=== PATIENT | female | born 2000 | race Caucasian/White ===

== ENCOUNTER 2019-04-22 13:27 | Inpatient (IN) | payer BC ==
[2019-04-22] MEDS ORDERED: SODIUM CHLORIDE 1,000 ML IV STA ×2 (13:58→16:24)
[2019-04-22] MEDS ORDERED: ONDANSETRON 4 MG/2 ML VIAL IVPUSH ONE (13:58)
[2019-04-22] MEDS ORDERED: morphine CARPU-JECT 4 MG/1 ML DISP.SYRIN IVPUSH ONE ×2 (13:58→16:24)
[2019-04-22] MEDS ORDERED: morphine SULFATE 4 MG/ML VIAL ONE ×2 (14:16→16:28)
[2019-04-22] MEDS ORDERED: ONDANSETRON 4 MG/2 ML VIAL ONE (14:16)
--- NOTE | 2019-04-22 14:35 | PDOC ---
History of Present Illness - General Chief Complaint: Pain Stated Complaint: LEFT LOWER QUADRANT PAIN Time Seen by Provider: 04/22/19 13:33 History Source: Patient Exam Limitations: No Limitations - History of Present Illness Initial Comments: 18 yo F s/p recent salpingectomy secondary to lg R fallopian tube mass presents with severe abd pain. She states she had surgery in [place] (she is there for school) on April 08, woke up with severe pain, which has been persistent since the surgery. She followed up twice in [place], was treated with neurontin and local lidocaine injections at the surgical sites (laparoscopic surgery), both R and L. The pain has persisted. Her mom picked her up and drove her home, took her to see Dr. Gaxiola this morning. Patient had an exam and an ultrasound, neither of which elucidated the etiology of the pain. She was sent to the ED for further evaluation. Past History - Past Medical History Allergies/Adverse Reactions: Allergies Allergy/AdvReac Type Severity Reaction Status Date / Time No Known Allergies Allergy Verified 10/02/13 10:56 Home Medications: Ambulatory Orders Gabapentin 300 mg PO TID 04/22/19 Norethindrone-E.estradiol-Iron [Lo Loestrin Fe 1-10 Tablet] 1 tab PO DAILY 04/22 COPD: No Thyroid Disease: Yes (DANA) Other medical history: CELIAC - Immunization History Td Vaccination: Yes Immunization Up to Date: Yes - Psycho Social/Smoking Cessation Hx Smoking Status: No Smoking History: Never smoked Number of Cigarettes Smoked Daily: 0 Information on smoking cessation initiated: No Hx Alcohol Use: No Drug/Substance Use Hx: No Review of Systems - Review of Systems Able to Perform ROS?: Yes Comments:: GENERAL/CONSTITUTIONAL: No fever or chills. No weakness. HEAD, EYES, EARS, NOSE AND THROAT: No change in vision. No ear pain or discharge. No sore throat. CARDIOVASCULAR: No chest pain or shortness of breath. RESPIRATORY: No cough, wheezing, or hemoptysis. GASTROINTESTINAL: No nausea, vomiting, diarrhea or constipation. +LLQ pain GENITOURINARY: No dysuria, frequency, or change in urination. MUSCULOSKELETAL: No joint or muscle swelling or pain. No neck or back pain. SKIN: No rash. NEUROLOGIC: No headache, vertigo, loss of consciousness, or change in strength/ sensation. ENDOCRINE: No increased thirst. No abnormal weight change. HEMATOLOGIC/LYMPHATIC: No anemia, easy bleeding, or history of blood clots. ALLERGIC/IMMUNOLOGIC: No hives or skin allergy. *Physical Exam - Vital Signs Last Vital Signs Temp Pulse Resp BP Pulse Ox 98.5 F 82 20 113/74 98 04/22/19 13:30 04/22/19 13:30 04/22/19 13:30 04/22/19 13:30 04/22/19 13:30 - Physical Exam GENERAL: Awake, alert, and fully oriented. Obese. Appears anxious, uncomfortable. HEAD: No signs of trauma EYES: PERRLA, EOMI, sclera anicteric, conjunctiva clear ENT: Auricles normal inspection, hearing grossly normal, nares patent, oropharynx clear without exudates. Moist mucosa NECK: Normal ROM, supple, no lymphadenopathy, JVD, or masses LUNGS: Breath sounds equal, clear to auscultation bilaterally. No wheezes, and no crackles HEART: Regular rate and rhythm, normal S1 and S2, no murmurs, rubs or gallops ABDOMEN: Soft, +severe LLQ tenderness with guarding, normoactive bowel sounds. No rebound. No masses EXTREMITIES: Normal range of motion, no edema. No clubbing or cyanosis. No cords, erythema, or tenderness NEUROLOGICAL: Cranial nerves II through XII grossly intact. Normal speech. + Antalgic gait. Motor and sensation intact SKIN: Warm, dry, normal turgor, no rashes. +Healing surgical sites to RLQ and LLQ, no drainage, no erythema. ED Treatment Course - LABORATORY CBC & Chemistry Diagram: 04/22/19 14:12 04/22/19 14:12 Medical Decision Making - Medical Decision Making 04/22/19 13:52 Pt with LLQ tenderness, already evaluated by receiving supervisor with ultrasound that did not reveal the etiology of the pain. No palpable hernias. Will give morphine as she is in severe pain. CT a/p to further evaluate. 04/22/19 18:11 Case d/w Dr. Valles, evaluated patient in ED for severe pain s/p laparoscopic surgery. No acute intervention at present. I will admit to hospitalist in light of pain med requirement and severe pain, will observe for any worsening symptoms. Patient endorsed to [facility] [employer]. Discharge - Discharge Information Problems reviewed: Yes Clinical Impression/Diagnosis: Intractable abdominal pain Abdominal pain Qualifiers: Abdominal location: left lower quadrant Qualified Code(s): R10.32 - Left lower quadrant pain Condition: Stable - Admission Yes - Follow up/Referral - Patient Discharge Instructions - Post Discharge Activity
[2019-04-22 14:37] LABS: BASO % 0.5 % (0-2.0); EOS % 0.5 % (0-4.5); HEMATOCRIT 38.2 % (32.4-45.2); HEMOGLOBIN 12.5 GM/dl (10.7-15.3); LYMPH % 23.9 % (8-40); MCH 27.4 pg (25.7-33.7); MCHC 32.8 g/dl (32.0-36.0); MEAN CELL VOLUME 83.5 fl (80-96); MEAN PLT VOLUME 8.8 fl (7.5-11.1); MONO % 4.2 % (3.8-10.2); NEUT % 70.9 % (42.8-82.8); PLATELET COUNT 350 K/MM3 (134-434); RBC 4.58 M/mm3 (3.60-5.2); RDW 14.4 % (11.6-15.6); WHITE BLOOD COUNT 10.9 K/mm3 (4.0-10.8)
[2019-04-22 14:41] LABS: ALBUMIN 3.5 g/dl (3.4-5.0); BILIRUBIN,TOTAL 0.3 mg/dl (0.2-1); CREATININE 0.7 mg/dl (0.55-1.3); POTASSIUM 4.4 mmol/L (3.5-5.1); TOT PROT 6.8 g/dl (6.4-8.2)
[2019-04-22] MEDS ORDERED: morphine SULFATE 4 MG/ML VIAL IVPUSH PRN (18:26)
[2019-04-22 20:13] VITALS: BMI 48.2
[2019-04-22] MEDS: GABAPENTIN 300 MG CAPSULE PO SCH (21:36)
[2019-04-22] MEDS ORDERED: ACETAMINOPHEN 325 MG TABLET (FP) PO PRN (21:46)
--- NOTE | 2019-04-22 21:46 | HP ---
CHIEF COMPLAINT: left lower abdominal pain PCP:Dr. Gaxiola HISTORY OF PRESENT ILLNESS: 18 year old obese female who is s/p recent salpingectomy secondary to large right fallopian tube mass who presents with severe left lower abdominal pain. She had surgery in [place] (she is there for school) on March, she woke up with severe abdominal pain, which has been persistent since the surgery. She followed up twice in [place] and was treated with neurontin and local lidocaine injections at the surgical sites (laparoscopic surgery), both R and L. The pain however has persisted. Her mom picked her up and drove her home, took her to see Dr. Gaxiola this morning. Patient had an exam and an ultrasound, which did not give an explanation of the pain. She was sent to the ED for further evaluation. ER course was notable for: (1)CT scan with no acute findings, Seen by Surgery- Dr. Valles , no acute intervention recommended Recent Travel: yes PAST MEDICAL HISTORY large right fallopian tube mass ] PAST SURGICAL HISTORY: salpingectomy 04/08/2019 secondary to large right fallopian tube mass Social History: Smoking:no Alcohol:no Drugs: no Allergies No Known Allergies Allergy (Verified 10/02/13 10:56) HOME MEDICATIONS: Home Medications Medication Instructions Recorded Gabapentin 300 mg PO TID 04/22/19 Norethindrone-E.estradiol-Iron [Lo 1 tab PO DAILY 04/22/19 Loestrin Fe 1-10 Tablet] REVIEW OF SYSTEMS CONSTITUTIONAL: Absent: fever, chills, diaphoresis, generalized weakness, malaise, loss of appetite, weight change HEENT: Absent: rhinorrhea, nasal congestion, throat pain, throat swelling, difficulty swallowing, mouth swelling, ear pain, eye pain, visual changes CARDIOVASCULAR: Absent: chest pain, syncope, palpitations, irregular heart rate, lightheadedness , peripheral edema RESPIRATORY: Absent: cough, shortness of breath, dyspnea with exertion, orthopnea, wheezing, stridor, hemoptysis GASTROINTESTINAL: Absent: left lower abdominal pain, abdominal distension, nausea, vomiting, diarrhea, constipation, melena, hematochezia GENITOURINARY: Absent: dysuria, frequency, urgency, hesitancy, hematuria, flank pain, genital pain MUSCULOSKELETAL: Absent: myalgia, arthralgia, joint swelling, back pain, neck pain SKIN: Absent: rash, itching, pallor HEMATOLOGIC/IMMUNOLOGIC: Absent: easy bleeding, easy bruising, lymphadenopathy, frequent infections ENDOCRINE: Absent: unexplained weight gain, unexplained weight loss, heat intolerance, cold intolerance NEUROLOGIC: Absent: headache, focal weakness or paresthesias, dizziness, unsteady gait, seizure, mental status changes, bladder or bowel incontinence PSYCHIATRIC: Absent: anxiety, depression, suicidal or homicidal ideation, hallucinations. PHYSICAL EXAMINATION Vital Signs - 24 hr 04/22/19 04/22/19 13:30 15:28 Temperature 98.5 F 98.3 F Pulse Rate 82 Pulse Rate [ 75 Left Radial] Respiratory 20 16 Rate Blood Pressure 113/74 Blood Pressure 119/48 L [Right Arm] O2 Sat by Pulse 98 100 Oximetry (%) GENERAL: awake, alert, and fully oriented no acute distress HEAD: normal EYES: pupils equal, round and reactive to light, extraocular movements intact EARS, NOSE, THROAT: ears normal, nares patent NECK: normal range of motion, supple without lymphadenopathy, JVD, or masses. LUNGS: breath sounds clear to auscultation bilaterally no wheezes and no crackles no accessory muscle use HEART: regular rate and rhythm normal S1 and S2 ABDOMEN: tender to LLQ not distended no acute abdomen MUSCULOSKELETAL: normal range of motion UPPER EXTREMITIES: 2+ pulses warm well-perfused no cyanosis LOWER EXTREMITIES: 2+ pulses warm well-perfused no pitting edema NEUROLOGICAL: normal speech PSYCHIATRIC: cooperative anxious SKIN: warm dry normal turgor no rashes or lesions noted normal capillary refill Laboratory Results - last 24 hr 04/22/19 04/22/19 04/22/19 14:12 14:12 14:12 WBC 10.9 H RBC 4.58 Hgb 12.5 Hct 38.2 MCV 83.5 MCH 27.4 MCHC 32.8 RDW 14.4 Plt Count 350 MPV 8.8 Absolute Neuts (auto) 7.6 Neutrophils % 70.9 Lymphocytes % 23.9 Monocytes % 4.2 Eosinophils % 0.5 Basophils % 0.5 Sodium 136 Potassium 4.4 Chloride 106 Carbon Dioxide 25 Anion Gap 5 L BUN 19.0 H Creatinine 0.7 Est GFR (CKD-EPI)AfAm 144.56 Est GFR (CKD-EPI)NonAf 124.72 Random Glucose 84 Calcium 9.0 Total Bilirubin 0.3 AST 12 L ALT 19 Alkaline Phosphatase 74 Total Protein 6.8 Albumin 3.5 Lipase 112 Serum , Qual Urine Color Urine Appearance Urine pH Urine Protein Urine Glucose (UA) Urine Ketones Urine Blood Urine Nitrite Urine Bilirubin Urine Urobilinogen Ur Leukocyte Esterase Blood Type Antibody Screen 04/22/19 04/22/19 04/22/19 14:12 14:12 14:15 WBC RBC Hgb Hct MCV MCH MCHC RDW Plt Count MPV Absolute Neuts (auto) Neutrophils % Lymphocytes % Monocytes % Eosinophils % Basophils % Sodium Potassium Chloride Carbon Dioxide Anion Gap BUN Creatinine Est GFR (CKD-EPI)AfAm Est GFR (CKD-EPI)NonAf Random Glucose Calcium Total Bilirubin AST ALT Alkaline Phosphatase Total Protein Albumin Lipase Serum , Qual Negative Urine Color Urine Appearance Urine pH Urine Protein Urine Glucose (UA) Urine Ketones Urine Blood Urine Nitrite Urine Bilirubin Urine Urobilinogen Ur Leukocyte Esterase Blood Type O POSITIVE O POSITIVE Antibody Screen Negative 04/22/19 16:20 WBC RBC Hgb Hct MCV MCH MCHC RDW Plt Count MPV Absolute Neuts (auto) Neutrophils % Lymphocytes % Monocytes % Eosinophils % Basophils % Sodium Potassium Chloride Carbon Dioxide Anion Gap BUN Creatinine Est GFR (CKD-EPI)AfAm Est GFR (CKD-EPI)NonAf Random Glucose Calcium Total Bilirubin AST ALT Alkaline Phosphatase Total Protein Albumin Lipase Serum , Qual Urine Color Yellow Urine Appearance Clear Urine pH 6.0 Urine Protein Negative Urine Glucose (UA) Negative Urine Ketones Negative Urine Blood Negative Urine Nitrite Negative Urine Bilirubin Negative Urine Urobilinogen 0.2 Ur Leukocyte Esterase Negative Blood Type Antibody Screen ASSESSMENT/PLAN: Mrs. Sal is a 18 year old morbidly obese female who is s/p recent salpingectomy secondary to large right fallopian tube mass who presents with severe abdominal pain. Post surgery she continued to have persistent abdominal pain. She followed up twice in [place] and was treated with neurontin and local lidocaine injections at the surgical sites (laparoscopic surgery), both R and L. She was evaluated by Surgery in the ER and no acute interventions recommended. She is being admitted for further monitoring and pain management. #1 Persistent Abdominal Pain Workup -WBC 10,900, currently afebrile, LFT's, renal function and lipase normal. UA normal, serum qualitative negative CT scan with no acute findings, Evaluated by Surgery- Dr. Valles , no acute interventions recommended She is being admitted for further evaluation of persistent abdominal pain and pain control. Contine with IV morphine for severe pain Continue with tylenol for mild to moderate pain. Repeat CBC in am Visit type - Emergency Visit Emergency Visit: Yes ED Registration Date: 04/22/19 Care time: The patient presented to the Emergency Department on the above date and was hospitalized for further evaluation of their emergent condition. - New Patient This patient is new to me today: Yes Date on this admission: 04/22/19 - Critical Care Critical Care patient: No
[2019-04-22] MEDS ORDERED: diphenhydrAMINE HCL 25 MG CAPSULE (FP) PO ONE (21:47)
--- NOTE | 2019-04-22 22:06 | CONSULT ---
- Consultation REQUESTING PROVIDER: Janak WEBBER CONSULT REQUEST: We have been asked to surgically evaluate this patient for ( specify). 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 Maryann Gaxiola today which was unremarkable and an unremarkable pelvic US; she describes LLQ point tenderness impeding her ability to walk and do her ADL. She has no other c/o; she required morphine in the ED; a w/u was done w/ aCT scan of the a/p. All her [place] medical records were reviewed. PMHx: Hashimotos thyroiditis /? anxiety PSHx: as above Home Medications Medication Instructions Recorded Gabapentin 300 mg PO TID 04/22/19 Norethindrone-E.estradiol-Iron [Lo 1 tab PO DAILY 04/22/19 Loestrin Fe 1-10 Tablet] Allergies Allergy/AdvReac Type Severity Reaction Status Date / Time No Known Allergies Allergy Verified 10/02/13 10:56 REVIEW OF SYSTEMS: CONSTITUTIONAL: Absent: fever, chills, diaphoresis, generalized weakness, malaise, loss of appetite, weight change CARDIOVASCULAR: Absent: chest pain, syncope, palpitations, irregular heart rate, lightheadedness , peripheral edema RESPIRATORY: Absent: cough, shortness of breath, dyspnea with exertion, wheezing, stridor, hemoptysis GASTROINTESTINAL: Present: abdominal pain, Absent: abdominal distension, nausea, vomiting, diarrhea, constipation, melena, hematochezia GENITOURINARY: Absent: dysuria, frequency, urgency, hesitancy, hematuria, flank pain, genital pain MUSCULOSKELETAL: Absent: myalgia, arthralgia, joint swelling, back pain, neck pain SKIN: Absent: rash, itching, pallor HEMATOLOGIC/IMMUNOLOGIC: Absent: easy bleeding, easy bruising, lymphadenopathy NEUROLOGIC: Absent: headache, focal weakness, paresthesias, dizziness, unsteady gait, seizure, mental status changes, bladder or bowel incontinence PSYCHIATRIC: Absent: anxiety, depression, suicidal or homicidal ideation, hallucinations. PHYSICAL EXAM: GENERAL: Awake, alert, and fully oriented, in no acute distress. HEAD: Normal with no signs of trauma. EYES: PERRL, sclera anicteric, conjunctiva clear. NECK: Normal ROM, supple without lymphadenopathy, JVD, or masses. ABDOMEN: Soft, minimally tender LLQ at port site with healed port site, not distended, normoactive bowel sounds, superficial guarding, no rebound, no masses. No organomegaly. Remainder of all other port sites healed; no hernias. MUSCULOSKELETAL: Normal ROM at all joints. No bony deformities or tenderness. No CVA tenderness. UPPER EXTREMITIES: 2+ pulses, warm, well-perfused. No cyanosis. Cap refill <2 seconds. No peripheral edema. LOWER EXTREMITIES: 2+ pulses, warm, well-perfused. No calf tenderness. No peripheral edema. NEUROLOGICAL: Normal speech, gait not observed. PSYCH: Cooperative. Good eye contact. Appropriate mood and affect. SKIN: Warm, dry, normal turgor, no rashes or lesions noted. Vital Signs Temperature 98.3 F 04/22/19 15:28 Pulse Rate 75 04/22/19 15:28 Respiratory Rate 16 04/22/19 15:28 Blood Pressure 119/48 L 04/22/19 15:28 O2 Sat by Pulse Oximetry (%) 100 04/22/19 15:28 Lab Results WBC 10.9 K/mm3 (4.0-10.8) H 04/22/19 14:12 RBC 4.58 M/mm3 (3.60-5.2) 04/22/19 14:12 Hgb 12.5 GM/dl (10.7-15.3) 04/22/19 14:12 Hct 38.2 % (32.4-45.2) 04/22/19 14:12 MCV 83.5 fl (80-96) 04/22/19 14:12 MCHC 32.8 g/dl (32.0-36.0) 04/22/19 14:12 RDW 14.4 % (11.6-15.6) 04/22/19 14:12 Plt Count 350 K/MM3 (134-434) 04/22/19 14:12 Sodium 136 mmol/L (136-145) 04/22/19 14:12 Potassium 4.4 mmol/L (3.5-5.1) 04/22/19 14:12 Chloride 106 mmol/L (98-107) 04/22/19 14:12 Carbon Dioxide 25 mmol/L (21-32) 04/22/19 14:12 Anion Gap 5 MMOL/L (8-16) L 04/22/19 14:12 BUN 19.0 mg/dl (7-18) H 04/22/19 14:12 Creatinine 0.7 mg/dl (0.55-1.3) 04/22/19 14:12 Random Glucose 84 mg/dl (74-106) 04/22/19 14:12 Calcium 9.0 mg/dl (8.5-10) 04/22/19 14:12 Blood Type O POSITIVE 04/22/19 14:15 Antibody Screen Negative 04/22/19 14:12 CT scan a/p reviewed- post op changes only; o/w negative. IMP: No evidenece of an acute surgical abdomen; pain is post surgical and superficial in nature w/possible fat necosis PLAN: Advise admission for pain control w/preferably non opiods; reconsult prn. Jacob Valles MD FACS
[2019-04-22] MEDS ORDERED: ONDANSETRON 4 MG/2 ML VIAL IVPUSH PRN (22:17)
[2019-04-22] MEDS ORDERED: ACETAMINOPHEN 1000 MG/100 ML VIAL (NON FORMULARY) IVPB ONE (23:20)
[2019-04-23] MEDS: GABAPENTIN 300 MG CAPSULE PO SCH ×2 (06:10→13:12)
[2019-04-23] MEDS ORDERED: ACETAMINOPHEN 1000 MG/100 ML VIAL (NON FORMULARY) IVPB ONE ×2 (06:15→13:04)
[2019-04-23 08:51] LABS: HEMATOCRIT 32.1 % (32.4-45.2); HEMOGLOBIN 10.7 GM/dl (10.7-15.3); MCH 28.3 pg (25.7-33.7); MCHC 33.4 g/dl (32.0-36.0); MEAN CELL VOLUME 84.7 fl (80-96); MEAN PLT VOLUME 8.8 fl (7.5-11.1); PLATELET COUNT 254 K/MM3 (134-434); RBC 3.79 M/mm3 (3.60-5.2); RDW 14.7 % (11.6-15.6); WHITE BLOOD COUNT 9.1 K/mm3 (4.0-10.8)
[2019-04-23 08:58] LABS: CALCIUM 8.4 mg/dl (8.5-10); CREATININE 0.7 mg/dl (0.55-1.3); POTASSIUM 4.6 mmol/L (3.5-5.1)
[2019-04-23] MEDS ORDERED: LIDOCAINE 5% TOPICAL PATCH TP ONE (13:05)
--- NOTE | 2019-04-23 13:26 | DS ---
Physical Exam: SUBJECTIVE: Patient seen and examined at bedside with mother present. Father later arrived. Still having abdominal pain. she denies nausea vomiting fever chills chest pain or SOB. AVSS OBJECTIVE: Vital Signs Period Temp Pulse Resp BP Sys/Fonseca Pulse Ox Last 24 Hr 98.0 F-98.5 F 67-82 16-20 101-119/41-74 98-100 PHYSICAL EXAM GENERAL: The patient is awake, alert, and fully oriented. HEAD: Normal with no signs of trauma. EYES: extraocular movements intact, sclera anicteric, conjunctiva clear. LUNGS: Breath sounds equal, clear to auscultation bilaterally, no wheezes, no crackles, no accessory muscle use. HEART: Regular rate and rhythm, S1, S2 without murmur, rub or gallop. ABDOMEN: Soft, obese, tenderness to palpation over LLQ trochar incision site, nondistended, normoactive bowel sounds, no guarding, no rebound. of note when patient was distracted the exam did not seem as severe. Patient is eating a donut from [employer] and drinking and iced coffee. Tenderness seems to be very superficial. EXTREMITIES: warm, well-perfused, no edema. NEUROLOGICAL: Cranial nerves II through XII grossly intact. Normal speech, gait not observed. PSYCH: tearful, anxious SKIN: Warm, dry LABS Laboratory Results - last 24 hr 04/22/19 04/22/19 04/22/19 14:12 14:12 14:12 WBC 10.9 H RBC 4.58 Hgb 12.5 Hct 38.2 MCV 83.5 MCH 27.4 MCHC 32.8 RDW 14.4 Plt Count 350 MPV 8.8 Absolute Neuts (auto) 7.6 Neutrophils % 70.9 Lymphocytes % 23.9 Monocytes % 4.2 Eosinophils % 0.5 Basophils % 0.5 Sodium 136 Potassium 4.4 Chloride 106 Carbon Dioxide 25 Anion Gap 5 L BUN 19.0 H Creatinine 0.7 Est GFR (CKD-EPI)AfAm 144.56 Est GFR (CKD-EPI)NonAf 124.72 Random Glucose 84 Calcium 9.0 Total Bilirubin 0.3 AST 12 L ALT 19 Alkaline Phosphatase 74 Total Protein 6.8 Albumin 3.5 Lipase 112 Serum , Qual Urine Color Urine Appearance Urine pH Urine Protein Urine Glucose (UA) Urine Ketones Urine Blood Urine Nitrite Urine Bilirubin Urine Urobilinogen Ur Leukocyte Esterase Blood Type Antibody Screen 04/22/19 04/22/19 04/22/19 14:12 14:12 14:15 WBC RBC Hgb Hct MCV MCH MCHC RDW Plt Count MPV Absolute Neuts (auto) Neutrophils % Lymphocytes % Monocytes % Eosinophils % Basophils % Sodium Potassium Chloride Carbon Dioxide Anion Gap BUN Creatinine Est GFR (CKD-EPI)AfAm Est GFR (CKD-EPI)NonAf Random Glucose Calcium Total Bilirubin AST ALT Alkaline Phosphatase Total Protein Albumin Lipase Serum , Qual Negative Urine Color Urine Appearance Urine pH Urine Protein Urine Glucose (UA) Urine Ketones Urine Blood Urine Nitrite Urine Bilirubin Urine Urobilinogen Ur Leukocyte Esterase Blood Type O POSITIVE O POSITIVE Antibody Screen Negative 04/22/19 04/23/19 04/23/19 16:20 08:12 08:12 WBC 9.1 RBC 3.79 Hgb 10.7 Hct 32.1 L D MCV 84.7 MCH 28.3 MCHC 33.4 RDW 14.7 Plt Count 254 MPV 8.8 Absolute Neuts (auto) Neutrophils % Lymphocytes % Monocytes % Eosinophils % Basophils % Sodium 136 Potassium 4.6 Chloride 106 Carbon Dioxide 25 Anion Gap 5 L BUN 16.0 Creatinine 0.7 Est GFR (CKD-EPI)AfAm 144.56 Est GFR (CKD-EPI)NonAf 124.72 Random Glucose 99 Calcium 8.4 L Total Bilirubin AST ALT Alkaline Phosphatase Total Protein Albumin Lipase Serum , Qual Urine Color Yellow Urine Appearance Clear Urine pH 6.0 Urine Protein Negative Urine Glucose (UA) Negative Urine Ketones Negative Urine Blood Negative Urine Nitrite Negative Urine Bilirubin Negative Urine Urobilinogen 0.2 Ur Leukocyte Esterase Negative Blood Type Antibody Screen HOSPITAL COURSE: Date of Admission:04/22/19 Date of Discharge: 04/23/19 18 year old obese female who is s/p recent ovarian cystectomy secondary to large right fallopian tube mass who presents with severe left lower abdominal pain. She had surgery in [place] (she is there for school) on April 08, 2019, she woke up with severe abdominal pain, which has been persistent since the surgery. She followed up twice in [place] and was treated with neurontin and local lidocaine injections at the surgical sites (laparoscopic surgery), both R and L. The pain however has persisted. Her mom picked her up and drove her home , took her to see Dr. Gaxiola this morning. Patient had an exam and an ultrasound, which did not give an explanation of the pain. She was sent to the ED for further evaluation where a CTAP was done which shows some inflammation or fat stranding at the area of the LLQ trochar insertion site. Gave mother multiple physician recommendations for primary care. Patient states lidocaine infiltration done by surgeon in the past helped her for 10 hours per patient. Minutes to complete discharge: 40 Discharge Summary Problems reviewed: Yes Reason For Visit: INTRACTABLE ABDOMINAL PAIN Current Active Problems Abdominal pain (Acute) Intractable abdominal pain (Acute) Condition: Stable - Instructions Diet, Activity, Other Instructions: If you have worsening of your symptoms or nausea vomiting fever chills chest pain or shortness of breath diarrhea of any other concerning symptoms please go to the nearest emergency room. Exercise as tolerated. Consider seeing a psychiatrist for anxiety. Referrals: Jacob Valles MD [Staff Physician] - 1 Month (as needed ) Randolph Subramanian MD [Staff Physician] - 1 Week (call for appointment) Disposition: HOME - Home Medications Comprehensive Discharge Medication List: Ambulatory Orders Gabapentin 300 mg PO TID 04/22/19 Norethindrone-E.estradiol-Iron [Lo Loestrin Fe 1-10 Tablet] 1 tab PO DAILY 04/22 Acetaminophen [Tylenol .Regular Strength -] 650 mg PO Q6H PRN tablet 04/23/19 oxyCODONE HCL [Roxicodone -] 5 mg PO Q6H PRN 3 Days #12 tablet MDD 4 tabs Prescription Drug Monitoring Program (I-STOP) results: I-STOP reviewed and no issues identified (reference number [id number]) This patient is new to me today: Yes Date on this admission: 04/23/19 Emergency Visit: Yes ED Registration Date: 04/22/19 Care time: The patient presented to the Emergency Department on the above date and was hospitalized for further evaluation of their emergent condition. Critical Care patient: No - Discharge Referral Referred to [facility] Med [facility] Yes Physician Referral: Randolph Subramanian MD (Int Med)
[2019-04-23 14:54] VITALS: BP 107/47; PULSE 66; TEMP 98.2
[2019-04-23] MEDS ORDERED: LIDOCAINE PATCH REMOVAL MC ONE (15:15)
[2019-04-23] MEDS ORDERED: LIDOCAINE PATCH REMOVAL MC SCH (22:00)
== END 2019-04-23 15:34 | disposition home or self-care (01) | DRG 392 ==
LOC: FER 13:27 → FM/S 18:08
PROVIDERS: ADMIT Internal Medicine; ATTEND Internal Medicine
DX: R10.32 Left lower quadrant pain (principal); Z68.42 Body mass index [BMI] 45.0-49.9, adult; E66.01 Morbid (severe) obesity due to excess calories
CPT/HCPCS: 36415; 74177-TC; 80048; 80053; 81003; 83690; 84703; 85025; 85027; 86850; 86900; 86901; 99285-25; J0131; J7030

== ENCOUNTER 2020-08-30 19:55 | Emergency (ER) | payer BC ==
[2020-08-30 20:04] VITALS: BP 124/81; PULSE 104; TEMP 99.3; BMI 48.4
[2020-08-30] MEDS ORDERED: morphine CARPU-JECT 4 MG/1 ML DISP.SYRIN IVPUSH ONE (20:28)
[2020-08-30] MEDS ORDERED: SODIUM CHLORIDE 1,000 ML ONE (20:28)
[2020-08-30] MEDS ORDERED: KETOROLAC TROMETHAMINE 30 MG/1 ML VIAL IVPUSH ONE (20:28)
[2020-08-30] MEDS ORDERED: KETOROLAC TROMETHAMINE 30 MG/1 ML VIAL ONE (20:31)
[2020-08-30] MEDS ORDERED: morphine SULFATE 4 MG/ML VIAL ONE (20:31)
[2020-08-30] MEDS ORDERED: ONDANSETRON 4 MG/2 ML VIAL IVPB ONE (20:46)
[2020-08-30] MEDS ORDERED: ONDANSETRON 4 MG/2 ML VIAL ONE (20:49)
[2020-08-30 21:07] LABS: BASO % 1.5 % (0-2.0); EOS % 0.9 % (0-4.5); HEMATOCRIT 41.7 % (32.4-45.2); HEMOGLOBIN 14.3 GM/dl (10.7-15.3); MCHC 34.2 g/dl (32.0-36.0); MEAN CELL VOLUME 84.6 fl (80-96); MEAN PLT VOLUME 9.5 fl (7.5-11.1); MONO % 6.2 % (3.8-10.2); NEUT % 72.4 % (42.8-82.8); PLATELET COUNT 353 10^3/uL (134-434); RBC 4.93 M/mm3 (3.60-5.2); RDW 14.8 % (11.6-15.6); WHITE BLOOD COUNT 8.6 K/mm3 (4.0-10.8)
[2020-08-30 21:08] LABS: EPITHELIAL CELLS MODERATE /hpf
[2020-08-30 21:09] LABS: HCG,QUALITATIVE URINE Negative
[2020-08-30 21:16] LABS: ALBUMIN 3.7 g/dl (3.4-5.0); BILIRUBIN,TOTAL 4.4 mg/dl (0.2-1); CALCIUM 9.1 mg/dl (8.5-10); CREATININE 0.7 mg/dl (0.55-1.3); TOT PROT 7.2 g/dl (6.4-8.2)
[2020-09-06 10:08] LABS: HEP B CORE AB, TOT Negative (Negative)
== END 2020-08-30 22:57 | disposition home or self-care (01) ==
LOC: FER 19:55
PROC: 3E0333Z Introduction of Anti-inflammatory into Peripheral Vein, Percutaneous Approach (ICD-10-PCS; principal; 2020-08-30)
PROC: 3E033GC Introduction of Other Therapeutic Substance into Peripheral Vein, Percutaneous Approach (ICD-10-PCS; 2020-08-30)
PROC: 3E0337Z Introduction of Electrolytic and Water Balance Substance into Peripheral Vein, Percutaneous Approach (ICD-10-PCS; 2020-08-30)
DX: R10.31 Right lower quadrant pain (principal)
CPT/HCPCS: 36415; 74177-TC; 76705-TC; 80053; 81003; 81015; 83605; 83690; 84703; 85025; 86704; 86706; 86707; 86708; 86709; 87340; 99285-25; C9803; Q9967; U0003; U0005

== ENCOUNTER 2021-02-20 17:00 | Emergency (ER) | payer BC ==
[2021-02-20] MEDS ORDERED: ACETAMINOPHEN 325 MG TABLET (FP) PO ONE (17:15)
[2021-02-20] MEDS ORDERED: DEXAMETHASONE 4 MG TABLET (FP) PO ONE (17:16)
[2021-02-20 17:17] VITALS: BMI 44.6
[2021-02-20] MEDS ORDERED: ACETAMINOPHEN 1000 MG/100 ML VIAL IVPB ONE (17:27)
[2021-02-20] MEDS ORDERED: DEXAMETHASONE SOD PHOSPHATE 10 MG/1 ML VIAL IVPUSH ONE (17:28)
[2021-02-20] MEDS ORDERED: ACETAMINOPHEN INJECTION 100 ML IVPB ONE (17:30)
[2021-02-20] MEDS ORDERED: DEXAMETHASONE SOD PHOSPHATE 10 MG/1 ML VIAL ONE (17:30)
[2021-02-20] MEDS ORDERED: SODIUM CHLORIDE 0.9% 500 ML INFUS.BAG IV ONE (17:49)
[2021-02-20 18:21] LABS: ALBUMIN 3.6 g/dl (3.4-5.0); BILIRUBIN,TOTAL 1.3 mg/dl (0.2-1); CREATININE 0.8 mg/dl (0.55-1.3); TOT PROT 6.8 g/dl (6.4-8.2)
[2021-02-20 19:40] LABS: BASO % 0.3 % (0-2.0); EOS % 0.3 % (0-4.5); HEMATOCRIT 40.1 % (32.4-45.2); HEMOGLOBIN 13.3 GM/dL (10.7-15.3); LYMPH % 4.7 % (8-40); MCH 27.6 pg (25.7-33.7); MCHC 33.2 g/dl (32.0-36.0); MEAN CELL VOLUME 83.1 fl (80-96); MEAN PLT VOLUME 9.1 fl (7.5-11.1); MONO % 3.2 % (3.8-10.2); NEUT % 91.5 % (42.8-82.8); PLATELET COUNT 274 10^3/uL (134-434); RBC 4.82 M/mm3 (3.60-5.2); RDW 14.5 % (11.6-15.6); WHITE BLOOD COUNT 10.8 K/mm3 (4.0-10.0)
[2021-02-20 20:36] LABS: ANISOCYTOSIS 0; HELMET CELLS 0; HOWELL-JOLLY BODIES 0; MACROCYTOSIS 0; OVALOCYTE 0; PLATELET ESTIMATE NORMAL; ROULEAU 0; SICKELED CELLS 0; TARGET CELLS 0; TEAR DROP CELLS 0; TOXIC GRANULATION 0
[2021-02-20 20:56] VITALS: BP 115/71; PULSE 81; TEMP 99
== END 2021-02-20 20:59 | disposition home or self-care (01) ==
LOC: FER 17:00
PROC: 3E0333Z Introduction of Anti-inflammatory into Peripheral Vein, Percutaneous Approach (ICD-10-PCS; principal; 2021-02-20)
PROC: 3E033GC Introduction of Other Therapeutic Substance into Peripheral Vein, Percutaneous Approach (ICD-10-PCS; 2021-02-20)
DX: R11.10 Vomiting, unspecified (principal)
CPT/HCPCS: 36415; 80053; 85025; 87804; 99284-25; C9803; J0131; J1100; U0003; U0005

== ENCOUNTER 2021-12-03 07:04 | Day surgery (SDC) | payer BC ==
[2021-11-29 14:26] VITALS: BMI 44.6
[2021-12-03 07:57] VITALS: RESP 18
[2021-12-03] MEDS ORDERED: KETAMINE HCL 500 MG/10 ML VIAL ONE (09:22)
[2021-12-03] MEDS ORDERED: PROMETHAZINE HCL 25 MG/1 ML VIAL ONE (10:15)
[2021-12-03] MEDS ORDERED: ACETAMINOPHEN INJECTION 100 ML IVPB ONE (10:16)
[2021-12-03] MEDS ORDERED: ACETAMINOPHEN 1000 MG/100 ML BAG IVPB ONE (10:27)
[2021-12-03] MEDS ORDERED: PROMETHAZINE HCL 25 MG/1 ML VIAL IVPUSH PRN (10:28)
[2021-12-03 10:45] VITALS: TEMP 97.4
[2021-12-03 12:02] VITALS: BP 110/70; PULSE 66
== END 2021-12-03 12:03 | disposition home or self-care (01) ==
LOC: FECT 07:04
PROVIDERS: ATTEND Psychiatry & Neurology Psychiatry
PROC: GZB4ZZZ Other Electroconvulsive Therapy (ICD-10-PCS; principal; 2021-12-03 09:34)
DX: F32.A Depression, unspecified (principal)
CPT/HCPCS: 81025; 90870; 94760; C9803-CS; U0003; U0005

== ENCOUNTER 2021-12-05 07:08 | Day surgery (SDC) | payer BC ==
[2021-12-03 09:20] VITALS: BMI 44.6
[2021-12-05] MEDS ORDERED: ACETAMINOPHEN INJECTION 100 ML IVPB ONE (10:03)
[2021-12-05] MEDS ORDERED: ACETAMINOPHEN 1000 MG/100 ML BAG IVPB ONE ×2 (10:04→10:37)
[2021-12-05 10:35] VITALS: RESP 16
[2021-12-05 11:57] VITALS: BP 89/44; PULSE 78; TEMP 97
== END 2021-12-05 11:45 | disposition home or self-care (01) ==
LOC: FECT 07:08
PROVIDERS: ATTEND Psychiatry & Neurology Psychiatry
PROC: GZB4ZZZ Other Electroconvulsive Therapy (ICD-10-PCS; principal; 2021-12-05 09:47)
DX: F32.A Depression, unspecified (principal)
CPT/HCPCS: 90870; 94760

== ENCOUNTER → 2021-12-06 | Day surgery (SDC) | payer BC ==
[2021-12-03 09:30] VITALS: BMI 44.6
[~2021-12-06] MED LIST: ACETAMINOPHEN 1000 MG/100 ML BAG IVPB ONE; ACETAMINOPHEN INJECTION 100 ML IVPB ONE; ACETAMINOPHEN/CAFFEINE/BUTALBITAL 1 TAB ONE; PROMETHAZINE HCL 25 MG/1 ML VIAL IVPUSH PRN; PROMETHAZINE HCL 25 MG/1 ML VIAL ONE
[2021-12-06 10:20] VITALS: RESP 16
[2021-12-06 10:52] VITALS: TEMP 98
[2021-12-06 11:30] VITALS: BP 126/73; PULSE 57
== END | disposition home or self-care (01) ==
LOC: FECT 08:21
PROVIDERS: ATTEND Psychiatry & Neurology Psychiatry
PROC: GZB4ZZZ Other Electroconvulsive Therapy (ICD-10-PCS; principal; 2021-12-06 09:42)
DX: F32.A Depression, unspecified (principal)
CPT/HCPCS: 90870; 94760; C9803-CS; U0003; U0005

== ENCOUNTER 2021-12-10 06:22 | Day surgery (SDC) | payer BC ==
[2021-12-03 09:38] VITALS: BMI 44.6
[2021-12-10] MEDS ORDERED: KETAMINE HCL 500 MG/10 ML VIAL ONE (08:01)
[2021-12-10] MEDS ORDERED: ACETAMINOPHEN/CAFFEINE/BUTALBITAL 1 TAB PO ONE (08:14)
[2021-12-10 09:10] VITALS: RESP 18
[2021-12-10 09:16] VITALS: TEMP 97.8
[2021-12-10 10:08] VITALS: BP 106/62; PULSE 72
== END 2021-12-10 10:00 | disposition home or self-care (01) ==
LOC: FECT 06:22
PROVIDERS: ATTEND Psychiatry & Neurology Psychiatry
PROC: GZB4ZZZ Other Electroconvulsive Therapy (ICD-10-PCS; principal; 2021-12-10 08:23)
DX: F32.A Depression, unspecified (principal)
CPT/HCPCS: 81025; 90870; 94760; C9803-CS; U0003; U0005

== ENCOUNTER 2021-12-12 07:07 | Day surgery (SDC) | payer BC ==
[2021-12-10 08:22] VITALS: BMI 44.6
[2021-12-12 10:30] VITALS: RESP 18
[2021-12-12] MEDS ORDERED: ACETAMINOPHEN/CAFFEINE/BUTALBITAL 1 TAB PO ONE (10:39)
[2021-12-12 11:06] VITALS: TEMP 98
[2021-12-12 12:25] VITALS: BP 117/78; PULSE 84
== END 2021-12-12 11:45 | disposition home or self-care (01) ==
LOC: FECT 07:07
PROVIDERS: ATTEND Psychiatry & Neurology Psychiatry
PROC: GZB4ZZZ Other Electroconvulsive Therapy (ICD-10-PCS; principal; 2021-12-12 09:50)
DX: F32.A Depression, unspecified (principal)
CPT/HCPCS: 90870; 94760

== ENCOUNTER 2021-12-13 08:54 | Day surgery (SDC) | payer BC ==
[2021-12-10 08:17] VITALS: BMI 44.6
[2021-12-13 11:39] VITALS: RESP 16
[2021-12-13 11:47] VITALS: PULSE 67; TEMP 97.5
[2021-12-13 11:59] VITALS: BP 108/66
== END 2021-12-13 12:33 | disposition home or self-care (01) ==
LOC: FECT 08:54
PROVIDERS: ATTEND Psychiatry & Neurology Psychiatry
PROC: GZB4ZZZ Other Electroconvulsive Therapy (ICD-10-PCS; principal; 2021-12-13 10:52)
DX: F32.A Depression, unspecified (principal)
CPT/HCPCS: 90870; 94760; C9803-CS; U0003; U0005

== ENCOUNTER 2021-12-17 06:21 | Day surgery (SDC) | payer BC ==
[2021-12-10 14:51] VITALS: BMI 44.6
[2021-12-17] MEDS ORDERED: KETAMINE HCL 500 MG/10 ML VIAL ONE (08:01)
[2021-12-17 08:58] VITALS: RESP 18
[2021-12-17 09:11] VITALS: PULSE 80; TEMP 98.2
[2021-12-17 09:27] VITALS: BP 120/80
== END 2021-12-17 10:02 | disposition home or self-care (01) ==
LOC: FECT 06:21
PROVIDERS: ATTEND Psychiatry & Neurology Psychiatry
PROC: GZB4ZZZ Other Electroconvulsive Therapy (ICD-10-PCS; principal; 2021-12-17 08:15)
DX: F32.A Depression, unspecified (principal)
CPT/HCPCS: 81025; 90870; 94760; C9803-CS; U0003; U0005

== ENCOUNTER 2021-12-19 07:04 | Day surgery (SDC) | payer OTHER, BC ==
[2021-12-13 14:40] VITALS: BMI 44.6
[2021-12-19] MEDS ORDERED: KETAMINE HCL 500 MG/10 ML VIAL ONE (09:02)
[2021-12-19] MEDS ORDERED: ACETAMINOPHEN/CAFFEINE/BUTALBITAL 1 TAB ONE (10:09)
[2021-12-19 11:39] VITALS: TEMP 98
[2021-12-19 11:50] VITALS: RESP 17
[2021-12-19 12:02] VITALS: BP 120/68; PULSE 72
== END 2021-12-19 11:05 | disposition home or self-care (01) ==
LOC: FECT 07:04
PROVIDERS: ATTEND Psychiatry & Neurology Psychiatry
PROC: GZB4ZZZ Other Electroconvulsive Therapy (ICD-10-PCS; principal; 2021-12-19 09:15)
DX: F32.A Depression, unspecified (principal)
CPT/HCPCS: 81025; 90870; 94760

== ENCOUNTER 2021-12-20 06:24 | Day surgery (SDC) | payer OTHER, BC ==
[2021-12-13 14:56] VITALS: BMI 44.6
[2021-12-20] MEDS ORDERED: KETAMINE HCL 500 MG/10 ML VIAL ONE (08:07)
[2021-12-20] MEDS ORDERED: ACETAMINOPHEN/CAFFEINE/BUTALBITAL 1 TAB PO ONE (08:39)
[2021-12-20 09:10] VITALS: TEMP 97.9
[2021-12-20 10:01] VITALS: BP 110/56; PULSE 71; RESP 18
== END 2021-12-20 09:55 | disposition home or self-care (01) ==
LOC: FECT 06:24
PROVIDERS: ATTEND Psychiatry & Neurology Psychiatry
PROC: GZB4ZZZ Other Electroconvulsive Therapy (ICD-10-PCS; principal; 2021-12-20 08:22)
DX: F33.2 Major depressive disorder, recurrent severe without psychotic features (principal)
CPT/HCPCS: 90870; 94760; C9803-CS; U0003; U0005

== ENCOUNTER 2021-12-24 08:18 | Day surgery (SDC) | payer BC, OTHER ==
[2021-12-18 17:38] VITALS: BMI 44.6
[2021-12-24] MEDS ORDERED: KETAMINE HCL 500 MG/10 ML VIAL ONE (09:54)
[2021-12-24] MEDS ORDERED: PROMETHAZINE HCL 25 MG/1 ML VIAL IVPUSH PRN (10:29)
[2021-12-24] MEDS ORDERED: ACETAMINOPHEN 500 MG TABLET (FP) PO PRN (10:29)
[2021-12-24] MEDS ORDERED: LACTATED RINGERS SOLUTION 1,000 ML IV SCH (10:30)
[2021-12-24 11:09] VITALS: TEMP 97.7
[2021-12-24 15:19] VITALS: BP 121/64; PULSE 71; RESP 18
== END 2021-12-24 12:20 | disposition home or self-care (01) ==
LOC: FECT 08:18
PROVIDERS: ATTEND Psychiatry & Neurology Psychiatry
PROC: GZB4ZZZ Other Electroconvulsive Therapy (ICD-10-PCS; principal; 2021-12-24 10:08)
DX: F32.A Depression, unspecified (principal)
CPT/HCPCS: 81025; 90870; 94760; C9803-CS; U0003; U0005

== ENCOUNTER 2021-12-26 09:13 | Day surgery (SDC) | payer BC, OTHER ==
[2021-12-18 08:55] VITALS: BMI 44.6
[2021-12-26 11:59] VITALS: PULSE 72; RESP 18; TEMP 97.4
[2021-12-26 12:54] VITALS: BP 122/74
== END 2021-12-26 13:05 | disposition home or self-care (01) ==
LOC: FECT 09:13
PROVIDERS: ATTEND Psychiatry & Neurology Psychiatry
PROC: GZB4ZZZ Other Electroconvulsive Therapy (ICD-10-PCS; principal; 2021-12-26 11:06)
DX: F32.A Depression, unspecified (principal)
CPT/HCPCS: 90870; 94760

== ENCOUNTER 2021-12-27 08:23 | Day surgery (SDC) | payer BC, OTHER ==
[2021-12-18 09:01] VITALS: BMI 44.6
[2021-12-27 13:07] VITALS: BP 118/70; PULSE 77; RESP 20; TEMP 98
== END 2021-12-27 13:08 | disposition home or self-care (01) ==
LOC: FECT 08:23
PROVIDERS: ATTEND Psychiatry & Neurology Psychiatry
PROC: GZB4ZZZ Other Electroconvulsive Therapy (ICD-10-PCS; principal; 2021-12-27 10:37)
DX: F32.A Depression, unspecified (principal)
CPT/HCPCS: 90870; 94760; C9803-CS; U0003; U0005

== ENCOUNTER 2021-12-31 08:54 | Day surgery (SDC) | payer BC, OTHER ==
[2021-12-24 16:37] VITALS: BMI 44.6
[2021-12-31] MEDS ORDERED: ONDANSETRON 4 MG/2 ML VIAL IVPUSH PRN (09:22)
[2021-12-31] MEDS ORDERED: LACTATED RINGERS SOLUTION 1,000 ML IV SCH (09:30)
[2021-12-31] MEDS ORDERED: ACETAMINOPHEN/CAFFEINE/BUTALBITAL 1 TAB PO ONE (09:45)
[2021-12-31] MEDS ORDERED: ACETAMINOPHEN/CAFFEINE/BUTALBITAL 1 TAB ONE (10:38)
[2021-12-31 11:35] VITALS: RESP 18; TEMP 97.9
[2021-12-31 11:40] VITALS: BP 132/76; PULSE 84
== END 2021-12-31 11:43 | disposition home or self-care (01) ==
LOC: FECT 08:54
PROVIDERS: ATTEND Psychiatry & Neurology Psychiatry
PROC: GZB4ZZZ Other Electroconvulsive Therapy (ICD-10-PCS; principal; 2021-12-31 10:06)
DX: F32.A Depression, unspecified (principal)
CPT/HCPCS: 81025; 90870; 94760; C9803-CS; U0003; U0005

== ENCOUNTER 2022-01-02 09:41 | Day surgery (SDC) | payer BC, OTHER ==
[2021-12-30 17:55] VITALS: BMI 44.6
[2022-01-02 10:49] VITALS: RESP 18
[2022-01-02] MEDS ORDERED: KETAMINE HCL 500 MG/10 ML VIAL ONE (11:31)
[2022-01-02 12:46] VITALS: TEMP 98
[2022-01-02 14:08] VITALS: BP 141/81; PULSE 79
== END 2022-01-02 13:05 | disposition home or self-care (01) ==
LOC: FECT 09:41
PROVIDERS: ATTEND Psychiatry & Neurology Psychiatry
PROC: GZB4ZZZ Other Electroconvulsive Therapy (ICD-10-PCS; principal; 2022-01-02 11:42)
DX: F32.A Depression, unspecified (principal)
CPT/HCPCS: 90870; 94760

== ENCOUNTER 2022-01-09 09:28 | Day surgery (SDC) | payer OTHER, BC ==
[2022-01-06 08:20] VITALS: BMI 44.6
[2022-01-09 12:40] VITALS: PULSE 70; RESP 16; TEMP 97.9
[2022-01-09 13:34] VITALS: BP 105/50
== END 2022-01-09 13:30 | disposition home or self-care (01) ==
LOC: FECT 09:28
PROVIDERS: ATTEND Psychiatry & Neurology Psychiatry
PROC: GZB4ZZZ Other Electroconvulsive Therapy (ICD-10-PCS; principal; 2022-01-09 11:39)
DX: Z53.8 Procedure and treatment not carried out for other reasons (principal)
CPT/HCPCS: 81025; 90870; 94760

== ENCOUNTER 2022-01-10 07:27 | Day surgery (SDC) | payer OTHER, BC ==
[2022-01-06 08:37] VITALS: BMI 44.6
[2022-01-10] MEDS ORDERED: KETAMINE HCL 500 MG/10 ML VIAL ONE (09:04)
[2022-01-10 10:31] VITALS: RESP 16; TEMP 98.8
[2022-01-10 10:46] VITALS: BP 108/64; PULSE 74
[2022-01-10] MEDS ORDERED: PROMETHAZINE HCL 25 MG/1 ML VIAL IVPUSH PRN (10:50)
[2022-01-10] MEDS ORDERED: ACETAMINOPHEN 500 MG TABLET (FP) PO PRN (10:50)
[2022-01-10] MEDS ORDERED: ONDANSETRON 4 MG/2 ML VIAL IVPUSH PRN (10:50)
[2022-01-10] MEDS ORDERED: LACTATED RINGERS SOLUTION 1,000 ML IV SCH (11:00)
== END 2022-01-10 10:50 | disposition home or self-care (01) ==
LOC: FECT 07:27
PROVIDERS: ATTEND Psychiatry & Neurology Psychiatry
PROC: GZB4ZZZ Other Electroconvulsive Therapy (ICD-10-PCS; principal; 2022-01-10 09:14)
DX: F32.A Depression, unspecified (principal)
CPT/HCPCS: 90870; 94760; C9803-CS; U0003; U0005

== ENCOUNTER 2022-01-14 09:12 | Day surgery (SDC) | payer OTHER, BC ==
[2022-01-13 16:56] VITALS: BMI 44.6
[2022-01-14] MEDS ORDERED: KETAMINE HCL 500 MG/10 ML VIAL ONE (10:42)
[2022-01-14] MEDS ORDERED: ACETAMINOPHEN 1000 MG/100 ML BAG IVPB ONE (11:49)
[2022-01-14 12:38] VITALS: RESP 18; TEMP 97.9
[2022-01-14 13:10] VITALS: BP 116/62; PULSE 76
== END 2022-01-14 13:11 | disposition home or self-care (01) ==
LOC: FECT 09:12
PROVIDERS: ATTEND Psychiatry & Neurology Psychiatry
PROC: GZB4ZZZ Other Electroconvulsive Therapy (ICD-10-PCS; principal; 2022-01-14 11:00)
DX: F32.A Depression, unspecified (principal)
CPT/HCPCS: 84703; 90870; 94760; C9803-CS; U0003; U0005

== ENCOUNTER 2022-01-16 09:12 | Day surgery (SDC) | payer OTHER, BC ==
[2022-01-16 09:31] VITALS: BMI 44.8
[2022-01-16] MEDS ORDERED: KETAMINE HCL 500 MG/10 ML VIAL ONE (10:18)
[2022-01-16 11:15] VITALS: RESP 16; TEMP 98.2
[2022-01-16 11:38] VITALS: BP 105/65; PULSE 68
== END 2022-01-16 12:10 | disposition home or self-care (01) ==
LOC: FECT 09:12
PROVIDERS: ATTEND Psychiatry & Neurology Psychiatry
PROC: GZB4ZZZ Other Electroconvulsive Therapy (ICD-10-PCS; principal; 2022-01-16 10:30)
DX: F33.2 Major depressive disorder, recurrent severe without psychotic features (principal)
CPT/HCPCS: 90870; 94760

== ENCOUNTER 2022-01-17 08:29 | Day surgery (SDC) | payer OTHER, BC ==
[2022-01-17 08:46] VITALS: BMI 44.9
[2022-01-17] MEDS ORDERED: KETAMINE HCL 500 MG/10 ML VIAL ONE (10:08)
[2022-01-17 11:18] VITALS: RESP 18; TEMP 98
[2022-01-17 13:56] VITALS: BP 110/72; PULSE 72
== END 2022-01-17 12:00 | disposition home or self-care (01) ==
LOC: FECT 08:29
PROVIDERS: ATTEND Psychiatry & Neurology Psychiatry
PROC: GZB4ZZZ Other Electroconvulsive Therapy (ICD-10-PCS; principal; 2022-01-17 10:16)
DX: F33.2 Major depressive disorder, recurrent severe without psychotic features (principal)
CPT/HCPCS: 90870; 94760; C9803-CS; U0003; U0005

== ENCOUNTER 2022-01-21 08:10 | Day surgery (SDC) | payer OTHER, BC ==
[2022-01-17 14:59] VITALS: BMI 44.9
[2022-01-21 12:12] VITALS: RESP 16
[2022-01-21 12:29] VITALS: TEMP 97.8
[2022-01-21 13:14] VITALS: BP 111/61; PULSE 62
== END 2022-01-21 13:49 | disposition home or self-care (01) ==
LOC: FECT 08:10
PROVIDERS: ATTEND Psychiatry & Neurology Psychiatry
PROC: GZB4ZZZ Other Electroconvulsive Therapy (ICD-10-PCS; principal; 2022-01-21 11:14)
DX: F32.A Depression, unspecified (principal)
CPT/HCPCS: 81025; 90870; 94760; C9803-CS; U0003; U0005

== ENCOUNTER 2022-01-23 09:34 | Day surgery (SDC) | payer OTHER, BC ==
[2022-01-23 10:47] VITALS: BMI 44.2
[2022-01-23] MEDS ORDERED: KETAMINE HCL 500 MG/10 ML VIAL ONE (12:07)
[2022-01-23 13:15] VITALS: RESP 16; TEMP 97.5
[2022-01-23 14:10] VITALS: BP 116/62; PULSE 72
== END 2022-01-23 14:05 | disposition home or self-care (01) ==
LOC: FECT 09:34
PROVIDERS: ATTEND Psychiatry & Neurology Psychiatry
PROC: GZB4ZZZ Other Electroconvulsive Therapy (ICD-10-PCS; principal; 2022-01-23 12:20)
DX: F32.A Depression, unspecified (principal)
CPT/HCPCS: 90870; 94760

== ENCOUNTER 2022-01-24 09:09 | Day surgery (SDC) | payer OTHER, BC ==
[2022-01-21 14:27] VITALS: BMI 44.8
[2022-01-24] MEDS ORDERED: KETAMINE HCL 500 MG/10 ML VIAL ONE (11:01)
[2022-01-24 12:25] VITALS: RESP 18; TEMP 97.4
[2022-01-24 12:41] VITALS: BP 115/64; PULSE 76
== END 2022-01-24 13:25 | disposition home or self-care (01) ==
LOC: FECT 09:09
PROVIDERS: ATTEND Psychiatry & Neurology Psychiatry
PROC: GZB4ZZZ Other Electroconvulsive Therapy (ICD-10-PCS; principal; 2022-01-24 11:09)
DX: F32.A Depression, unspecified (principal)
CPT/HCPCS: 90870; 94760; C9803-CS; U0003; U0005

== ENCOUNTER 2022-01-28 10:07 | Day surgery (SDC) | payer OTHER, BC ==
[2022-01-21 14:37] VITALS: BMI 44.8
[2022-01-28] MEDS ORDERED: KETAMINE HCL 500 MG/10 ML VIAL ONE (11:00)
[2022-01-28 12:26] VITALS: BP 126/72; PULSE 76; RESP 18; TEMP 97.9
== END 2022-01-28 14:00 | disposition home or self-care (01) ==
LOC: FECT 10:07
PROVIDERS: ATTEND Psychiatry & Neurology Psychiatry
PROC: GZB4ZZZ Other Electroconvulsive Therapy (ICD-10-PCS; principal; 2022-01-28 11:17)
DX: F32.A Depression, unspecified (principal)
CPT/HCPCS: 81025; 90870; 94760

== ENCOUNTER 2022-02-07 07:07 | Day surgery (SDC) | payer OTHER, BC ==
[2022-02-04 07:31] VITALS: BMI 44.8
[2022-02-07] MEDS ORDERED: KETAMINE HCL 500 MG/10 ML VIAL ONE (08:21)
[2022-02-07] MEDS ORDERED: PROPOFOL 20 ML ONE (08:28)
[2022-02-07] MEDS ORDERED: SUCCINYLCHOLINE CHLORIDE 200 MG/10 ML SYRINGE ONE (08:29)
[2022-02-07 08:55] VITALS: RESP 16
[2022-02-07 09:54] VITALS: PULSE 87; TEMP 97.9
[2022-02-07 10:08] VITALS: BP 100/60
[2022-02-07] MEDS ORDERED: LACTATED RINGERS SOLUTION 1,000 ML IV SCH (11:15)
== END 2022-02-07 10:05 | disposition home or self-care (01) ==
LOC: FECT 07:07
PROVIDERS: ATTEND Psychiatry & Neurology Psychiatry
PROC: GZB4ZZZ Other Electroconvulsive Therapy (ICD-10-PCS; principal; 2022-02-07 08:34)
DX: F32.A Depression, unspecified (principal)
CPT/HCPCS: 81025; 90870; 94760; C9803-CS; U0003; U0005

== ENCOUNTER 2022-02-14 08:54 | Day surgery (SDC) | payer OTHER, BC ==
[2022-02-10 17:45] VITALS: BMI 44.8
[2022-02-14] MEDS ORDERED: ONDANSETRON 4 MG/2 ML VIAL ONE (11:37)
[2022-02-14] MEDS ORDERED: DEXAMETHASONE SOD PHOSPHATE 4 MG/1 ML VIAL ONE (11:37)
[2022-02-14] MEDS ORDERED: KETOROLAC TROMETHAMINE 30 MG/1 ML VIAL ONE (11:37)
[2022-02-14] MEDS ORDERED: KETAMINE HCL 500 MG/10 ML VIAL ONE (11:37)
[2022-02-14] MEDS ORDERED: PROPOFOL 20 ML ONE (11:54)
[2022-02-14 15:57] VITALS: TEMP 97.5
[2022-02-14 16:17] VITALS: BP 126/70; PULSE 78; RESP 16
== END 2022-02-14 15:00 | disposition home or self-care (01) ==
LOC: FECT 08:54
PROVIDERS: ATTEND Psychiatry & Neurology Psychiatry
PROC: GZB4ZZZ Other Electroconvulsive Therapy (ICD-10-PCS; principal; 2022-02-14 11:59)
DX: F32.A Depression, unspecified (principal)
CPT/HCPCS: 81025; 90870; 94760; C9803-CS; U0003; U0005

== ENCOUNTER 2022-02-18 09:44 | Day surgery (SDC) | payer OTHER, BC ==
[2022-02-10 17:49] VITALS: BMI 44.6
[2022-02-18] MEDS ORDERED: KETAMINE HCL 500 MG/10 ML VIAL ONE (10:41)
[2022-02-18 12:17] VITALS: RESP 18; TEMP 97.8
[2022-02-18 12:54] VITALS: BP 118/73; PULSE 72
== END 2022-02-18 12:56 | disposition home or self-care (01) ==
LOC: FECT 09:44
PROVIDERS: ATTEND Psychiatry & Neurology Psychiatry
PROC: GZB4ZZZ Other Electroconvulsive Therapy (ICD-10-PCS; principal; 2022-02-18 11:00)
DX: F33.2 Major depressive disorder, recurrent severe without psychotic features (principal)
CPT/HCPCS: 81025; 90870; 94760; C9803-CS; U0003; U0005

== ENCOUNTER 2022-02-20 09:48 | Day surgery (SDC) | payer OTHER, BC ==
[2022-02-05 13:16] VITALS: BMI 44.8
[2022-02-20] MEDS ORDERED: KETAMINE HCL 500 MG/10 ML VIAL ONE (10:51)
[2022-02-20 12:06] VITALS: TEMP 98.7
[2022-02-20 14:12] VITALS: BP 118/71; PULSE 74; RESP 16
== END 2022-02-20 13:07 | disposition home or self-care (01) ==
LOC: FECT 09:48
PROVIDERS: ATTEND Psychiatry & Neurology Psychiatry
PROC: GZB4ZZZ Other Electroconvulsive Therapy (ICD-10-PCS; principal; 2022-02-20 11:02)
DX: F32.A Depression, unspecified (principal)
CPT/HCPCS: 81025; 90870; 94760

== ENCOUNTER 2022-02-21 12:09 | Day surgery (SDC) | payer OTHER, BC ==
[2022-02-17 08:50] VITALS: BMI 44.6
[2022-02-21] MEDS ORDERED: KETAMINE HCL 500 MG/10 ML VIAL ONE (13:26)
[2022-02-21 14:03] VITALS: RESP 16
[2022-02-21 14:30] VITALS: TEMP 98.2
[2022-02-21 14:59] VITALS: BP 111/57; PULSE 72
== END 2022-02-21 15:15 | disposition home or self-care (01) ==
LOC: FECT 12:09
PROVIDERS: ATTEND Psychiatry & Neurology Psychiatry
PROC: GZB4ZZZ Other Electroconvulsive Therapy (ICD-10-PCS; principal; 2022-02-21 13:36)
DX: F32.A Depression, unspecified (principal)
CPT/HCPCS: 90870; 94760; C9803-CS; U0003; U0005

== ENCOUNTER 2022-02-25 08:11 | Day surgery (SDC) | payer OTHER, BC ==
[2022-02-21 15:53] VITALS: BMI 44.6
[2022-02-25 08:29] VITALS: RESP 16
[2022-02-25] MEDS ORDERED: KETAMINE HCL 500 MG/10 ML VIAL ONE (09:16)
[2022-02-25 10:25] VITALS: TEMP 98.2
[2022-02-25 10:44] VITALS: BP 125/78; PULSE 75
== END 2022-02-25 11:10 | disposition home or self-care (01) ==
LOC: FECT 08:11
PROVIDERS: ATTEND Psychiatry & Neurology Psychiatry
PROC: GZB4ZZZ Other Electroconvulsive Therapy (ICD-10-PCS; principal; 2022-02-25 09:27)
DX: F32.A Depression, unspecified (principal)
CPT/HCPCS: 81025; 90870; 94760; C9803-CS; U0003; U0005

== ENCOUNTER 2022-02-27 10:00 | Day surgery (SDC) | payer OTHER, BC ==
[2022-02-24 12:18] VITALS: BMI 44.6
[2022-02-27] MEDS ORDERED: KETAMINE HCL 500 MG/10 ML VIAL ONE (10:54)
[2022-02-27] MEDS ORDERED: KETOROLAC TROMETHAMINE 30 MG/1 ML VIAL ONE (10:57)
[2022-02-27] MEDS ORDERED: ONDANSETRON 4 MG/2 ML VIAL ONE (10:57)
[2022-02-27] MEDS ORDERED: LACTATED RINGERS SOLUTION 1,000 ML IV SCH (11:30)
[2022-02-27 12:06] VITALS: RESP 16; TEMP 98.2
[2022-02-27 13:19] VITALS: BP 126/76; PULSE 84
== END 2022-02-27 13:04 | disposition home or self-care (01) ==
LOC: FECT 10:00
PROVIDERS: ATTEND Psychiatry & Neurology Psychiatry
PROC: GZB4ZZZ Other Electroconvulsive Therapy (ICD-10-PCS; principal; 2022-02-27 11:08)
DX: F32.A Depression, unspecified (principal)
CPT/HCPCS: 90870; 94760

== ENCOUNTER 2022-02-28 06:33 | Day surgery (SDC) | payer OTHER, BC ==
[2022-02-24 12:13] VITALS: BMI 44.6
[2022-02-28] MEDS ORDERED: KETAMINE HCL 500 MG/10 ML VIAL ONE (07:25)
[2022-02-28 09:46] VITALS: BP 126/55; PULSE 72; RESP 20; TEMP 97.9
== END 2022-02-28 09:46 | disposition home or self-care (01) ==
LOC: FECT 06:33
PROVIDERS: ATTEND Psychiatry & Neurology Psychiatry
PROC: GZB4ZZZ Other Electroconvulsive Therapy (ICD-10-PCS; principal; 2022-02-28 07:30)
DX: F32.A Depression, unspecified (principal)
CPT/HCPCS: 90870; 94760; C9803-CS; U0003; U0005

== ENCOUNTER 2022-03-20 08:51 | Day surgery (SDC) | payer OTHER, BC ==
[2022-03-20 09:24] VITALS: BMI 44.6
[2022-03-20] MEDS ORDERED: KETAMINE HCL 500 MG/10 ML VIAL ONE (10:35)
[2022-03-20 11:23] VITALS: TEMP 97.9
[2022-03-20 11:57] VITALS: BP 124/67; PULSE 67; RESP 18
== END 2022-03-20 12:19 | disposition home or self-care (01) ==
LOC: FECT 08:51
PROVIDERS: ATTEND Psychiatry & Neurology Psychiatry
PROC: GZB4ZZZ Other Electroconvulsive Therapy (ICD-10-PCS; principal; 2022-03-20 10:40)
DX: F32.A Depression, unspecified (principal)
CPT/HCPCS: 81025; 90870; 94760

== ENCOUNTER 2022-03-21 08:41 | Day surgery (SDC) | payer OTHER, BC ==
[2022-03-21 09:38] VITALS: BMI 44.6
[2022-03-21] MEDS ORDERED: KETAMINE HCL 500 MG/10 ML VIAL ONE (09:52)
[2022-03-21 11:01] VITALS: RESP 18; TEMP 97.4
[2022-03-21 11:57] VITALS: BP 120/74; PULSE 78
== END 2022-03-21 11:58 | disposition home or self-care (01) ==
LOC: FECT 08:41
PROVIDERS: ATTEND Psychiatry & Neurology Psychiatry
PROC: GZB4ZZZ Other Electroconvulsive Therapy (ICD-10-PCS; principal; 2022-03-21 10:02)
DX: F32.A Depression, unspecified (principal)
CPT/HCPCS: 90870; 94760

== ENCOUNTER 2022-03-25 06:32 | Day surgery (SDC) | payer OTHER, BC ==
[2022-03-20 15:25] VITALS: BMI 44.6
[2022-03-25] MEDS ORDERED: ONDANSETRON 4 MG/2 ML VIAL IVPUSH PRN (07:19)
[2022-03-25] MEDS ORDERED: PROMETHAZINE HCL 25 MG/1 ML VIAL IVPUSH PRN (07:19)
[2022-03-25] MEDS ORDERED: ACETAMINOPHEN 500 MG TABLET (FP) PO PRN (07:19)
[2022-03-25] MEDS ORDERED: LACTATED RINGERS SOLUTION 1,000 ML IV SCH (07:30)
[2022-03-25] MEDS ORDERED: KETAMINE HCL 500 MG/10 ML VIAL ONE (08:28)
[2022-03-25 09:42] VITALS: TEMP 98
[2022-03-25 09:46] VITALS: RESP 19
[2022-03-25 09:57] VITALS: BP 134/68; PULSE 76
== END 2022-03-25 10:10 | disposition home or self-care (01) ==
LOC: FECT 06:32
PROVIDERS: ATTEND Psychiatry & Neurology Psychiatry
PROC: GZB4ZZZ Other Electroconvulsive Therapy (ICD-10-PCS; principal; 2022-03-25 08:40)
DX: F32.A Depression, unspecified (principal)
CPT/HCPCS: 81025; 90870; 94760

== ENCOUNTER 2022-03-27 09:15 | Day surgery (SDC) | payer OTHER, BC ==
[2022-03-20 15:31] VITALS: BMI 44.6
[2022-03-27] MEDS ORDERED: KETAMINE HCL 500 MG/10 ML VIAL ONE (10:27)
[2022-03-27] MEDS ORDERED: PROMETHAZINE HCL 25 MG/1 ML VIAL IVPUSH PRN (11:32)
[2022-03-27] MEDS ORDERED: ACETAMINOPHEN 500 MG TABLET (FP) PO PRN (11:32)
[2022-03-27 11:34] VITALS: RESP 20; TEMP 97.8
[2022-03-27] MEDS ORDERED: LACTATED RINGERS SOLUTION 1,000 ML IV SCH (11:45)
[2022-03-27 12:02] VITALS: BP 124/72; PULSE 70
== END 2022-03-27 12:15 | disposition home or self-care (01) ==
LOC: FECT 09:15
PROVIDERS: ATTEND Psychiatry & Neurology Psychiatry
PROC: GZB4ZZZ Other Electroconvulsive Therapy (ICD-10-PCS; principal; 2022-03-27 10:37)
DX: F32.A Depression, unspecified (principal)
CPT/HCPCS: 90870; 94760

== ENCOUNTER 2022-03-28 09:05 | Day surgery (SDC) | payer OTHER, BC ==
[2022-03-20 15:39] VITALS: BMI 44.6
[2022-03-28] MEDS ORDERED: KETAMINE HCL 500 MG/10 ML VIAL ONE (10:44)
[2022-03-28 13:49] VITALS: PULSE 70; RESP 17; TEMP 97.9
[2022-03-28 14:10] VITALS: BP 100/50
== END 2022-03-28 13:00 | disposition home or self-care (01) ==
LOC: FECT 09:05
PROVIDERS: ATTEND Psychiatry & Neurology Psychiatry
PROC: GZB4ZZZ Other Electroconvulsive Therapy (ICD-10-PCS; principal; 2022-03-28 10:57)
DX: F33.2 Major depressive disorder, recurrent severe without psychotic features (principal)
CPT/HCPCS: 90870; 94760

== ENCOUNTER 2022-04-01 08:46 | Day surgery (SDC) | payer OTHER, BC ==
[2022-03-28 06:38] VITALS: BMI 44.6
[2022-04-01] MEDS ORDERED: KETAMINE HCL 500 MG/10 ML VIAL ONE (11:37)
[2022-04-01] MEDS ORDERED: SUCCINYLCHOLINE CHLORIDE 200 MG/10 ML SYRINGE ONE (11:42)
[2022-04-01] MEDS ORDERED: PROPOFOL 20 ML ONE (11:42)
[2022-04-01 13:09] VITALS: RESP 19
[2022-04-01 13:25] VITALS: BP 109/57; PULSE 82; TEMP 98
== END 2022-04-01 13:45 | disposition home or self-care (01) ==
LOC: FECT 08:46
PROVIDERS: ATTEND Psychiatry & Neurology Psychiatry
PROC: GZB4ZZZ Other Electroconvulsive Therapy (ICD-10-PCS; principal; 2022-04-01 11:47)
DX: F32.A Depression, unspecified (principal)
CPT/HCPCS: 81025; 90870; 94760

== ENCOUNTER 2022-04-03 07:56 | Day surgery (SDC) | payer OTHER, BC ==
[2022-03-28 06:41] VITALS: BMI 44.6
[2022-04-03 08:30] VITALS: RESP 18
[2022-04-03] MEDS ORDERED: KETAMINE HCL 500 MG/10 ML VIAL ONE (08:58)
[2022-04-03 10:22] VITALS: TEMP 97.1
[2022-04-03 10:44] VITALS: BP 122/74; PULSE 82
== END 2022-04-03 10:47 | disposition home or self-care (01) ==
LOC: FECT 07:56
PROVIDERS: ATTEND Psychiatry & Neurology Psychiatry
PROC: GZB4ZZZ Other Electroconvulsive Therapy (ICD-10-PCS; principal; 2022-04-03 09:28)
DX: F32.A Depression, unspecified (principal)
CPT/HCPCS: 90870; 94760

== ENCOUNTER 2022-04-08 09:04 | Day surgery (SDC) | payer OTHER, BC ==
[2022-04-03 15:18] VITALS: BMI 44.6
[2022-04-08] MEDS ORDERED: KETAMINE HCL 500 MG/10 ML VIAL ONE (10:00)
[2022-04-08 10:43] VITALS: PULSE 72
[2022-04-08 11:04] VITALS: RESP 18; TEMP 97.8
[2022-04-08 11:27] VITALS: BP 135/78
== END 2022-04-08 12:05 | disposition home or self-care (01) ==
LOC: FECT 09:04
PROVIDERS: ATTEND Psychiatry & Neurology Psychiatry
PROC: GZB4ZZZ Other Electroconvulsive Therapy (ICD-10-PCS; principal; 2022-04-08 10:13)
DX: F32.A Depression, unspecified (principal)
CPT/HCPCS: 81025; 90870; 94760

== ENCOUNTER → 2022-04-11 | Day surgery (SDC) | payer OTHER, BC ==
[2022-04-09 17:45] VITALS: BMI 44.6
[~2022-04-11] MED LIST changes: -ACETAMINOPHEN 1000 MG/100 ML BAG IVPB ONE; -ACETAMINOPHEN INJECTION 100 ML IVPB ONE; -ACETAMINOPHEN/CAFFEINE/BUTALBITAL 1 TAB ONE; +KETAMINE HCL 500 MG/10 ML VIAL ONE; -PROMETHAZINE HCL 25 MG/1 ML VIAL IVPUSH PRN; -PROMETHAZINE HCL 25 MG/1 ML VIAL ONE
[2022-04-11 08:25] VITALS: RESP 16
[2022-04-11 10:38] VITALS: TEMP 97.8
[2022-04-11 11:15] VITALS: BP 132/64; PULSE 71
== END | disposition home or self-care (01) ==
LOC: FECT 07:59
PROVIDERS: ATTEND Psychiatry & Neurology Psychiatry
PROC: GZB4ZZZ Other Electroconvulsive Therapy (ICD-10-PCS; principal; 2022-04-11 09:58)
DX: F32.A Depression, unspecified (principal)
CPT/HCPCS: 90870; 94760

== ENCOUNTER 2022-04-15 08:45 | Day surgery (SDC) | payer OTHER, BC ==
[2022-04-10 14:23] VITALS: BMI 44.6
[~2022-04-15 08:45] MED LIST changes: -KETAMINE HCL 500 MG/10 ML VIAL ONE; +LACTATED RINGERS SOLUTION 1,000 ML IV SCH; +ONDANSETRON 4 MG/2 ML VIAL IVPUSH PRN
[2022-04-15 11:28] VITALS: RESP 18; TEMP 97.8
[2022-04-15 11:32] VITALS: BP 112/70; PULSE 72
== END 2022-04-15 11:47 | disposition home or self-care (01) ==
LOC: FECT 08:45
PROVIDERS: ATTEND Psychiatry & Neurology Psychiatry
PROC: GZB4ZZZ Other Electroconvulsive Therapy (ICD-10-PCS; principal; 2022-04-15 10:17)
DX: F32.A Depression, unspecified (principal)
CPT/HCPCS: 81025; 90870; 94760

== ENCOUNTER 2022-04-18 09:41 | Day surgery (SDC) | payer OTHER, BC ==
[2022-04-18 10:20] VITALS: BMI 44.6
[2022-04-18 12:50] VITALS: RESP 18; TEMP 98.2
[2022-04-18 13:51] VITALS: BP 122/74; PULSE 72
== END 2022-04-18 13:52 | disposition home or self-care (01) ==
LOC: FECT 09:41
PROVIDERS: ATTEND Psychiatry & Neurology Psychiatry
PROC: GZB4ZZZ Other Electroconvulsive Therapy (ICD-10-PCS; principal; 2022-04-18 11:42)
DX: F32.A Depression, unspecified (principal)
CPT/HCPCS: 90870; 94760

== ENCOUNTER 2022-04-22 09:25 | Day surgery (SDC) | payer OTHER, BC ==
[2022-04-15 15:08] VITALS: BMI 44.6
[~2022-04-22 09:25] MED LIST changes: -ONDANSETRON 4 MG/2 ML VIAL IVPUSH PRN
[2022-04-22 13:24] VITALS: RESP 18
[2022-04-22 15:10] VITALS: BP 121/65; PULSE 85; TEMP 98.4
== END 2022-04-22 13:30 | disposition home or self-care (01) ==
LOC: FECT 09:25
PROVIDERS: ATTEND Psychiatry & Neurology Psychiatry
PROC: GZB4ZZZ Other Electroconvulsive Therapy (ICD-10-PCS; principal; 2022-04-22 12:08)
DX: F33.2 Major depressive disorder, recurrent severe without psychotic features (principal)
CPT/HCPCS: 81025; 90870; 94760

== ENCOUNTER 2022-04-25 09:11 | Day surgery (SDC) | payer OTHER, BC ==
[2022-04-25 09:52] VITALS: BMI 44.6
[2022-04-25] MEDS ORDERED: KETAMINE HCL 500 MG/10 ML VIAL ONE (10:24)
[2022-04-25 11:39] VITALS: RESP 18
[2022-04-25 11:43] VITALS: TEMP 97.8
[2022-04-25 12:04] VITALS: BP 118/75; PULSE 77
== END 2022-04-25 12:12 | disposition home or self-care (01) ==
LOC: FECT 09:11
PROVIDERS: ATTEND Psychiatry & Neurology Psychiatry
PROC: GZB4ZZZ Other Electroconvulsive Therapy (ICD-10-PCS; principal; 2022-04-25 10:40)
DX: F32.A Depression, unspecified (principal)
CPT/HCPCS: 90870; 94760

== ENCOUNTER 2022-04-29 08:13 | Day surgery (SDC) | payer OTHER, BC ==
[2022-04-25 15:06] VITALS: BMI 44.6
[2022-04-29] MEDS ORDERED: KETAMINE HCL 500 MG/10 ML VIAL ONE (09:43)
[2022-04-29 12:29] VITALS: RESP 17; TEMP 98.2
[2022-04-29 12:41] VITALS: BP 128/69; PULSE 84
== END 2022-04-29 11:20 | disposition home or self-care (01) ==
LOC: FECT 08:13
PROVIDERS: ATTEND Psychiatry & Neurology Psychiatry
PROC: GZB4ZZZ Other Electroconvulsive Therapy (ICD-10-PCS; principal; 2022-04-29 09:50)
DX: F33.2 Major depressive disorder, recurrent severe without psychotic features (principal)
CPT/HCPCS: 84703; 90870; 94760

== ENCOUNTER 2022-05-02 10:17 | Day surgery (SDC) | payer OTHER, BC ==
[2022-04-29 14:23] VITALS: BMI 44.6
[2022-05-02] MEDS ORDERED: KETAMINE HCL 500 MG/10 ML VIAL ONE (11:47)
[2022-05-02 12:48] VITALS: RESP 18; TEMP 97.9
[2022-05-02 13:10] VITALS: BP 121/71; PULSE 76
== END 2022-05-02 13:13 | disposition home or self-care (01) ==
LOC: FECT 10:17
PROVIDERS: ATTEND Psychiatry & Neurology Psychiatry
PROC: GZB4ZZZ Other Electroconvulsive Therapy (ICD-10-PCS; principal; 2022-05-02 11:58)
DX: F33.2 Major depressive disorder, recurrent severe without psychotic features (principal)
CPT/HCPCS: 90870; 94760

== ENCOUNTER 2022-05-08 09:01 | Day surgery (SDC) | payer OTHER, BC ==
[2022-04-30 16:35] VITALS: BMI 44.6
[2022-05-08] MEDS ORDERED: KETAMINE HCL 500 MG/10 ML VIAL ONE (11:42)
[2022-05-08 13:01] VITALS: TEMP 97.7
[2022-05-08 13:06] VITALS: BP 124/64; PULSE 78; RESP 18
== END 2022-05-08 13:21 | disposition home or self-care (01) ==
LOC: FECT 09:01
PROVIDERS: ATTEND Psychiatry & Neurology Psychiatry
PROC: GZB4ZZZ Other Electroconvulsive Therapy (ICD-10-PCS; principal; 2022-05-08 11:53)
DX: F32.A Depression, unspecified (principal)
CPT/HCPCS: 81025; 90870; 94760

== ENCOUNTER 2022-05-09 09:44 | Day surgery (SDC) | payer OTHER, BC ==
[2022-04-30 16:45] VITALS: BMI 44.6
[2022-05-09] MEDS ORDERED: KETAMINE HCL 500 MG/10 ML VIAL ONE (10:59)
[2022-05-09] MEDS ORDERED: MINERAL OIL/PETROLATUM,WHITE 3.5 GM TUBE ONE (11:13)
[2022-05-09 12:17] VITALS: RESP 16; TEMP 97.1
[2022-05-09 12:39] VITALS: BP 133/71; PULSE 701
[2022-05-09] MEDS ORDERED: LACTATED RINGERS SOLUTION 1,000 ML IV SCH (14:15)
== END 2022-05-09 12:55 | disposition home or self-care (01) ==
LOC: FECT 09:44
PROVIDERS: ATTEND Psychiatry & Neurology Psychiatry
PROC: GZB4ZZZ Other Electroconvulsive Therapy (ICD-10-PCS; principal; 2022-05-09 11:09)
DX: F32.A Depression, unspecified (principal)
CPT/HCPCS: 90870; 94760

== ENCOUNTER 2022-05-13 10:25 | Day surgery (SDC) | payer OTHER, BC ==
[2022-05-09 08:44] VITALS: BMI 44.6
[2022-05-13] MEDS ORDERED: KETAMINE HCL 500 MG/10 ML VIAL ONE (12:08)
[2022-05-13] MEDS ORDERED: ACETAMINOPHEN 500 MG TABLET (FP) PO PRN (13:21)
[2022-05-13] MEDS ORDERED: PROMETHAZINE HCL 25 MG/1 ML VIAL IVPB PRN (13:21)
[2022-05-13] MEDS ORDERED: LACTATED RINGERS SOLUTION 1,000 ML IV SCH (13:30)
[2022-05-13 14:39] VITALS: BP 120/76; PULSE 91; RESP 19
[2022-05-13 14:40] VITALS: TEMP 97.7
== END 2022-05-13 14:15 | disposition home or self-care (01) ==
LOC: FECT 10:25
PROVIDERS: ATTEND Psychiatry & Neurology Psychiatry
PROC: GZB4ZZZ Other Electroconvulsive Therapy (ICD-10-PCS; principal; 2022-05-13 12:18)
DX: F33.2 Major depressive disorder, recurrent severe without psychotic features (principal)
CPT/HCPCS: 84703; 90870; 94760

== ENCOUNTER 2022-05-16 10:46 | Day surgery (SDC) | payer OTHER, BC ==
[2022-05-16 11:17] VITALS: BMI 47.2
[2022-05-16] MEDS ORDERED: KETAMINE HCL 500 MG/10 ML VIAL ONE (11:30)
[2022-05-16] MEDS ORDERED: SUCCINYLCHOLINE CHLORIDE 200 MG/10 ML SYRINGE ONE (11:42)
[2022-05-16 12:37] VITALS: TEMP 97.8
[2022-05-16 12:40] VITALS: RESP 18
[2022-05-16 13:20] VITALS: BP 128/71; PULSE 85
== END 2022-05-16 13:10 | disposition home or self-care (01) ==
LOC: FECT 10:46
PROVIDERS: ATTEND Psychiatry & Neurology Psychiatry
PROC: GZB4ZZZ Other Electroconvulsive Therapy (ICD-10-PCS; principal; 2022-05-16 11:48)
DX: F32.A Depression, unspecified (principal)
CPT/HCPCS: 90870; 94760

== ENCOUNTER 2022-05-20 09:28 | Day surgery (SDC) | payer OTHER, BC ==
[2022-05-13 15:41] VITALS: BMI 44.6
[2022-05-20] MEDS ORDERED: SUCCINYLCHOLINE CHLORIDE 200 MG/10 ML SYRINGE ONE (11:30)
[2022-05-20] MEDS ORDERED: KETAMINE HCL 500 MG/10 ML VIAL ONE (11:30)
[2022-05-20] MEDS ORDERED: PROPOFOL 20 ML ONE (11:30)
[2022-05-20 12:38] VITALS: RESP 16; TEMP 98.6
[2022-05-20 13:20] VITALS: BP 139/90; PULSE 94
== END 2022-05-20 13:10 | disposition home or self-care (01) ==
LOC: FECT 09:28
PROVIDERS: ATTEND Psychiatry & Neurology Psychiatry
PROC: GZB4ZZZ Other Electroconvulsive Therapy (ICD-10-PCS; principal; 2022-05-20 11:36)
DX: F32.A Depression, unspecified (principal)
CPT/HCPCS: 81025; 90870; 94760

== ENCOUNTER 2022-05-22 09:21 | Day surgery (SDC) | payer OTHER, BC ==
[2022-05-22 09:46] VITALS: BMI 47.7
[2022-05-22] MEDS ORDERED: KETAMINE HCL 500 MG/10 ML VIAL ONE (10:58)
[2022-05-22 11:31] VITALS: RESP 16
[2022-05-22 12:06] VITALS: TEMP 97.9
[2022-05-22 12:28] VITALS: BP 124/74; PULSE 74
== END 2022-05-22 12:49 | disposition home or self-care (01) ==
LOC: FECT 09:21
PROVIDERS: ATTEND Psychiatry & Neurology Psychiatry
PROC: GZB4ZZZ Other Electroconvulsive Therapy (ICD-10-PCS; principal; 2022-05-22 11:09)
DX: F32.A Depression, unspecified (principal)
CPT/HCPCS: 90870; 94760

== ENCOUNTER 2022-05-27 07:40 | Day surgery (SDC) | payer OTHER, BC ==
[2022-05-20 16:53] VITALS: BMI 44.6
[2022-05-27] MEDS ORDERED: SUCCINYLCHOLINE CHLORIDE 200 MG/10 ML SYRINGE ONE (08:00)
[2022-05-27 08:12] VITALS: RESP 18
[2022-05-27] MEDS ORDERED: KETAMINE HCL 500 MG/10 ML VIAL ONE (08:49)
[2022-05-27 09:43] VITALS: TEMP 98.3
[2022-05-27 09:58] VITALS: BP 119/74; PULSE 78
== END 2022-05-27 10:42 | disposition home or self-care (01) ==
LOC: FECT 07:40
PROVIDERS: ATTEND Psychiatry & Neurology Psychiatry
PROC: GZB4ZZZ Other Electroconvulsive Therapy (ICD-10-PCS; principal; 2022-05-27 08:57)
DX: F32.A Depression, unspecified (principal)
CPT/HCPCS: 81025; 90870; 93005; 93010; 94760

== ENCOUNTER 2022-06-02 08:39 | Day surgery (SDC) | payer OTHER, BC ==
[2022-05-20 17:07] VITALS: BMI 44.6
[2022-06-02] MEDS ORDERED: KETAMINE HCL 500 MG/10 ML VIAL ONE (09:48)
[2022-06-02 10:07] LABS: ALBUMIN 3.1 g/dl (3.4-5.0); BILIRUBIN,TOTAL 0.3 mg/dl (0.2-1); CALCIUM 9.2 mg/dl (8.5-10); CREATININE 0.9 mg/dl (0.55-1.3); TOT PROT 6.2 g/dl (6.4-8.2)
[2022-06-02 10:45] VITALS: RESP 18
[2022-06-02 10:56] VITALS: TEMP 98.2
[2022-06-02 11:10] VITALS: BP 122/74; PULSE 80
[2022-06-02 11:47] LABS: BASO % 0.7 % (0-2.0); EOS % 1.3 % (0-4.5); HEMATOCRIT 38.1 % (32.4-45.2); HEMOGLOBIN 12.7 GM/dL (10.7-15.3); LYMPH % 28.7 % (8-40); MCH 28.2 pg (25.7-33.7); MCHC 33.2 g/dl (32.0-36.0); MEAN CELL VOLUME 84.9 fl (80-96); MEAN PLT VOLUME 8.9 fl (7.5-11.1); MONO % 5.6 % (3.8-10.2); NEUT % 63.7 % (42.8-82.8); PLATELET COUNT 338 10^3/uL (134-434); RBC 4.49 M/mm3 (3.60-5.2); RDW 14.5 % (11.6-15.6); WHITE BLOOD COUNT 10.4 K/mm3 (4.0-10.0)
== END 2022-06-02 11:36 | disposition home or self-care (01) ==
LOC: FECT 08:39
PROVIDERS: ATTEND Psychiatry & Neurology Psychiatry
PROC: GZB4ZZZ Other Electroconvulsive Therapy (ICD-10-PCS; principal; 2022-06-02 09:57)
DX: F33.2 Major depressive disorder, recurrent severe without psychotic features (principal)
CPT/HCPCS: 36415; 80053; 81025; 85025; 90870; 94760

== ENCOUNTER 2022-06-06 07:34 | Day surgery (SDC) | payer OTHER, BC ==
[2022-06-03 15:18] VITALS: BMI 44.6
[2022-06-06] MEDS ORDERED: KETAMINE HCL 500 MG/10 ML VIAL ONE (08:21)
[2022-06-06 09:28] VITALS: RESP 16
[2022-06-06 10:10] VITALS: PULSE 78; TEMP 98
[2022-06-06 10:12] VITALS: BP 128/71
== END 2022-06-06 10:25 | disposition home or self-care (01) ==
LOC: FECT 07:34
PROVIDERS: ATTEND Psychiatry & Neurology Psychiatry
PROC: GZB4ZZZ Other Electroconvulsive Therapy (ICD-10-PCS; principal; 2022-06-06 08:58)
DX: F32.A Depression, unspecified (principal)
CPT/HCPCS: 81025; 90870; 94760

== ENCOUNTER 2022-06-10 08:38 | Day surgery (SDC) | payer OTHER, BC ==
[2022-05-27 17:46] VITALS: BMI 44.6
[2022-06-10 10:55] VITALS: TEMP 98.2
[2022-06-10] MEDS ORDERED: KETAMINE HCL 500 MG/10 ML VIAL ONE (10:56)
[2022-06-10 11:03] VITALS: BP 128/68; PULSE 85; RESP 20
== END 2022-06-10 11:20 | disposition home or self-care (01) ==
LOC: FECT 08:38
PROVIDERS: ATTEND Psychiatry & Neurology Psychiatry
PROC: GZB4ZZZ Other Electroconvulsive Therapy (ICD-10-PCS; 2022-06-10)
PROC: GZB4ZZZ Other Electroconvulsive Therapy (ICD-10-PCS; principal; 2022-06-10 10:11)
DX: F32.A Depression, unspecified (principal)
CPT/HCPCS: 81025; 90870; 94760

== ENCOUNTER 2022-06-17 09:34 | Day surgery (SDC) | payer OTHER, BC ==
[2022-06-11 15:57] VITALS: BMI 44.6
[2022-06-17] MEDS ORDERED: KETAMINE HCL 500 MG/10 ML VIAL ONE (11:08)
[2022-06-17 12:12] VITALS: RESP 18; TEMP 98
[2022-06-17] MEDS ORDERED: ACETAMINOPHEN 500 MG TABLET (FP) PO PRN (12:20)
[2022-06-17] MEDS ORDERED: PROMETHAZINE HCL 25 MG/1 ML VIAL IVPB PRN (12:20)
[2022-06-17 12:29] VITALS: BP 121/71; PULSE 81
[2022-06-17] MEDS ORDERED: LACTATED RINGERS SOLUTION 1,000 ML IV SCH (12:30)
== END 2022-06-17 12:30 | disposition home or self-care (01) ==
LOC: FECT 09:34
PROVIDERS: ATTEND Psychiatry & Neurology Psychiatry
PROC: GZB4ZZZ Other Electroconvulsive Therapy (ICD-10-PCS; principal; 2022-06-17 11:19)
DX: F33.2 Major depressive disorder, recurrent severe without psychotic features (principal)
CPT/HCPCS: 84703; 90870; 94760

== ENCOUNTER 2022-06-20 06:29 | Day surgery (SDC) | payer OTHER, BC ==
[2022-06-13 09:21] VITALS: BMI 44.6
[2022-06-20] MEDS ORDERED: KETAMINE HCL 500 MG/10 ML VIAL ONE (07:32)
[2022-06-20] MEDS ORDERED: SUCCINYLCHOLINE CHLORIDE 200 MG/10 ML SYRINGE ONE (07:35)
[2022-06-20] MEDS ORDERED: PROPOFOL 20 ML ONE (07:35)
[2022-06-20 08:06] VITALS: TEMP 98
[2022-06-20 08:31] VITALS: RESP 18
[2022-06-20 08:56] VITALS: BP 131/60; PULSE 86
== END 2022-06-20 09:15 | disposition home or self-care (01) ==
LOC: FECT 06:29
PROVIDERS: ATTEND Psychiatry & Neurology Psychiatry
PROC: GZB4ZZZ Other Electroconvulsive Therapy (ICD-10-PCS; principal; 2022-06-20 07:41)
DX: F32.A Depression, unspecified (principal)
CPT/HCPCS: 90870; 94760

== ENCOUNTER → 2022-07-01 | Day surgery (SDC) | payer OTHER, BC ==
[~2022-07-01] MED LIST changes: +KETAMINE HCL 500 MG/10 ML VIAL ONE; -LACTATED RINGERS SOLUTION 1,000 ML IV SCH
[2022-07-01 09:54] VITALS: BMI 48.8
[2022-07-01 11:54] VITALS: BP 108/50; PULSE 83; RESP 16; TEMP 98.7
== END | disposition home or self-care (01) ==
LOC: FECT 09:15
PROVIDERS: ATTEND Psychiatry & Neurology Psychiatry
PROC: GZB4ZZZ Other Electroconvulsive Therapy (ICD-10-PCS; principal; 2022-07-01 10:59)
DX: F33.2 Major depressive disorder, recurrent severe without psychotic features (principal)
CPT/HCPCS: 81025; 90870; 94760

== ENCOUNTER 2022-07-04 09:05 | Day surgery (SDC) | payer OTHER, BC ==
[2022-07-04 09:44] VITALS: BMI 48.8
[2022-07-04 11:21] VITALS: PULSE 86; RESP 18; TEMP 97.2
[2022-07-04 11:37] VITALS: BP 140/86
== END 2022-07-04 11:54 | disposition home or self-care (01) ==
LOC: FECT 09:05
PROVIDERS: ATTEND Psychiatry & Neurology Psychiatry
PROC: GZB4ZZZ Other Electroconvulsive Therapy (ICD-10-PCS; principal; 2022-07-04 10:34)
DX: F32.A Depression, unspecified (principal)
CPT/HCPCS: 90870; 94760

== ENCOUNTER 2022-07-08 08:38 | Day surgery (SDC) | payer OTHER, BC ==
[2022-07-08 09:14] VITALS: BMI 48.7
[2022-07-08 10:34] VITALS: RESP 18; TEMP 97.4
[2022-07-08 10:45] VITALS: BP 122/78; PULSE 82
== END 2022-07-08 11:07 | disposition home or self-care (01) ==
LOC: FECT 08:38
PROVIDERS: ATTEND Psychiatry & Neurology Psychiatry
PROC: GZB4ZZZ Other Electroconvulsive Therapy (ICD-10-PCS; principal; 2022-07-08 09:47)
DX: F32.A Depression, unspecified (principal)
CPT/HCPCS: 81025; 90870; 94760

== ENCOUNTER 2022-07-11 07:38 | Day surgery (SDC) | payer OTHER, BC ==
[2022-07-09 17:40] VITALS: BMI 48.7
[2022-07-11 10:12] VITALS: TEMP 98
[2022-07-11 10:30] VITALS: BP 117/75; PULSE 75; RESP 19
[2022-07-11] MEDS ORDERED: ONDANSETRON 4 MG/2 ML VIAL IVPUSH PRN (10:37)
[2022-07-11] MEDS ORDERED: LACTATED RINGERS SOLUTION 1,000 ML IV SCH (10:45)
== END 2022-07-11 10:30 | disposition home or self-care (01) ==
LOC: FECT 07:38
PROVIDERS: ATTEND Psychiatry & Neurology Psychiatry
PROC: GZB4ZZZ Other Electroconvulsive Therapy (ICD-10-PCS; principal; 2022-07-11 09:21)
DX: Z33.2 Encounter for elective termination of pregnancy (principal)
CPT/HCPCS: 90870; 94760

== ENCOUNTER 2022-07-15 08:12 | Day surgery (SDC) | payer OTHER, BC ==
[2022-07-10 08:11] VITALS: BMI 48.7
[2022-07-15 10:00] VITALS: RESP 18; TEMP 97.9
[2022-07-15 10:32] VITALS: BP 136/71; PULSE 89
== END 2022-07-15 10:34 | disposition home or self-care (01) ==
LOC: FECT 08:12
PROVIDERS: ATTEND Psychiatry & Neurology Psychiatry
PROC: GZB4ZZZ Other Electroconvulsive Therapy (ICD-10-PCS; principal; 2022-07-15 09:17)
DX: F33.2 Major depressive disorder, recurrent severe without psychotic features (principal)
CPT/HCPCS: 81025; 90870; 94760

== ENCOUNTER 2022-07-18 06:04 | Day surgery (SDC) | payer OTHER, BC ==
[2022-07-15 11:03] VITALS: BMI 48.7
[2022-07-18] MEDS ORDERED: KETAMINE HCL 500 MG/10 ML VIAL ONE (08:07)
[2022-07-18 09:23] VITALS: RESP 18; TEMP 98.2
[2022-07-18 09:49] VITALS: BP 126/72; PULSE 79
== END 2022-07-18 09:53 | disposition home or self-care (01) ==
LOC: FECT 06:04
PROVIDERS: ATTEND Psychiatry & Neurology Psychiatry
PROC: GZB4ZZZ Other Electroconvulsive Therapy (ICD-10-PCS; principal; 2022-07-18 08:24)
DX: F33.2 Major depressive disorder, recurrent severe without psychotic features (principal)
CPT/HCPCS: 90870; 94760

== ENCOUNTER 2022-07-22 07:18 | Day surgery (SDC) | payer OTHER, BC ==
[2022-07-17 06:34] VITALS: BMI 48.7
[2022-07-22] MEDS ORDERED: KETAMINE HCL 500 MG/10 ML VIAL ONE (08:30)
[2022-07-22] MEDS ORDERED: LIDOCAINE HCL/PF 2% SDV 5ML VIAL ONE (08:50)
[2022-07-22 09:31] VITALS: RESP 18
[2022-07-22 09:46] VITALS: TEMP 98
[2022-07-22 10:11] VITALS: BP 124/59; PULSE 84
== END 2022-07-22 10:13 | disposition home or self-care (01) ==
LOC: FECT 07:18
PROVIDERS: ATTEND Psychiatry & Neurology Psychiatry
PROC: GZB4ZZZ Other Electroconvulsive Therapy (ICD-10-PCS; principal; 2022-07-22 08:54)
DX: F32.A Depression, unspecified (principal)
CPT/HCPCS: 81025; 90870; 94760

== ENCOUNTER 2022-07-29 08:09 | Day surgery (SDC) | payer OTHER, BC ==
[2022-07-22 17:27] VITALS: BMI 48.7
[2022-07-29] MEDS ORDERED: KETOROLAC TROMETHAMINE 30 MG/1 ML VIAL ONE (09:47)
[2022-07-29] MEDS ORDERED: ONDANSETRON 4 MG/2 ML VIAL ONE (09:47)
[2022-07-29] MEDS ORDERED: PROPOFOL 20 ML ONE (09:47)
[2022-07-29] MEDS ORDERED: SUCCINYLCHOLINE CHLORIDE 200 MG/10 ML SYRINGE ONE (09:47)
[2022-07-29] MEDS ORDERED: ACETAMINOPHEN INJECTION 100 ML IVPB ONE (09:54)
[2022-07-29 11:06] VITALS: RESP 18; TEMP 97.8
[2022-07-29 11:35] VITALS: BP 140/86; PULSE 82
== END 2022-07-29 11:35 | disposition home or self-care (01) ==
LOC: FECT 08:09
PROVIDERS: ATTEND Psychiatry & Neurology Psychiatry
PROC: GZB4ZZZ Other Electroconvulsive Therapy (ICD-10-PCS; principal; 2022-07-29 10:07)
DX: F32.A Depression, unspecified (principal)
CPT/HCPCS: 81025; 90870; 94760

== ENCOUNTER 2022-07-31 07:37 | Day surgery (SDC) | payer OTHER, BC ==
[2022-07-17 06:37] VITALS: BMI 48.7
[2022-07-31] MEDS ORDERED: KETAMINE HCL 500 MG/10 ML VIAL ONE (09:05)
[2022-07-31] MEDS ORDERED: METOPROLOL TARTRATE 5 MG/5 ML VIAL ONE (09:20)
[2022-07-31] MEDS ORDERED: ACETAMINOPHEN 1000 MG/100 ML BAG IVPB ONE (10:20)
[2022-07-31 10:23] VITALS: BP 103/85; PULSE 79; RESP 20; TEMP 98.4
== END 2022-07-31 11:11 | disposition home or self-care (01) ==
LOC: FECT 07:37
PROVIDERS: ATTEND Psychiatry & Neurology Psychiatry
PROC: GZB4ZZZ Other Electroconvulsive Therapy (ICD-10-PCS; principal; 2022-07-31 09:16)
DX: F32.A Depression, unspecified (principal)
CPT/HCPCS: 90870; 94760

== ENCOUNTER 2022-08-01 07:29 | Day surgery (SDC) | payer OTHER, BC ==
[2022-07-24 14:32] VITALS: BMI 48.7
[2022-08-01] MEDS ORDERED: ACETAMINOPHEN INJECTION 100 ML IVPB ONE (10:25)
[2022-08-01] MEDS ORDERED: ACETAMINOPHEN 1000 MG/100 ML BAG IVPB ONE ×2 (10:30→12:10)
[2022-08-01 10:43] VITALS: PULSE 80
[2022-08-01 11:00] VITALS: RESP 18; TEMP 97.7
[2022-08-01 11:40] VITALS: BP 138/70
[2022-08-01] MEDS ORDERED: LACTATED RINGERS SOLUTION 1,000 ML IV SCH (12:15)
== END 2022-08-01 11:30 | disposition home or self-care (01) ==
LOC: FECT 07:29
PROVIDERS: ATTEND Psychiatry & Neurology Psychiatry
PROC: GZB4ZZZ Other Electroconvulsive Therapy (ICD-10-PCS; principal; 2022-08-01 10:03)
DX: F32.A Depression, unspecified (principal)
CPT/HCPCS: 90870; 94760

== ENCOUNTER 2022-08-05 08:05 | Day surgery (SDC) | payer OTHER, BC ==
[2022-07-25 08:38] VITALS: BMI 48.7
[2022-08-05 08:48] VITALS: TEMP 97.8
[2022-08-05] MEDS ORDERED: KETAMINE HCL 500 MG/10 ML VIAL ONE (09:16)
[2022-08-05 10:35] VITALS: PULSE 85; RESP 18
[2022-08-05 12:13] VITALS: BP 122/70
== END 2022-08-05 11:05 | disposition home or self-care (01) ==
LOC: FECT 08:05
PROVIDERS: ATTEND Psychiatry & Neurology Psychiatry
PROC: GZB4ZZZ Other Electroconvulsive Therapy (ICD-10-PCS; principal; 2022-08-05 09:37)
DX: F32.A Depression, unspecified (principal)
CPT/HCPCS: 81025; 90870; 94760

== ENCOUNTER 2022-08-12 09:07 | Day surgery (SDC) | payer OTHER, BC ==
[2022-08-06 16:40] VITALS: BMI 48.7
[2022-08-12] MEDS ORDERED: KETAMINE HCL 500 MG/10 ML VIAL ONE (10:11)
[2022-08-12] MEDS ORDERED: PROPOFOL 20 ML ONE (10:12)
[2022-08-12] MEDS ORDERED: SUCCINYLCHOLINE CHLORIDE 200 MG/10 ML SYRINGE ONE (10:12)
[2022-08-12] MEDS ORDERED: KETOROLAC TROMETHAMINE 30 MG/1 ML VIAL ONE (10:12)
[2022-08-12] MEDS ORDERED: ONDANSETRON 4 MG/2 ML VIAL ONE (10:12)
[2022-08-12] MEDS ORDERED: LACTATED RINGERS SOLUTION 1,000 ML IV SCH (12:00)
[2022-08-12 12:04] VITALS: PULSE 84; RESP 16; TEMP 97.8
[2022-08-12 12:05] VITALS: BP 116/54
== END 2022-08-12 12:06 | disposition home or self-care (01) ==
LOC: FECT 09:07
PROVIDERS: ATTEND Psychiatry & Neurology Psychiatry
PROC: GZB4ZZZ Other Electroconvulsive Therapy (ICD-10-PCS; principal; 2022-08-12 10:19)
DX: F33.2 Major depressive disorder, recurrent severe without psychotic features (principal)
CPT/HCPCS: 81025; 90870; 94760

== ENCOUNTER 2022-08-14 11:15 | Day surgery (SDC) | payer OTHER, BC ==
[2022-08-12 14:54] VITALS: BMI 48.7
[2022-08-14] MEDS ORDERED: KETAMINE HCL 500 MG/10 ML VIAL ONE (13:34)
[2022-08-14 14:54] VITALS: BP 128/74; PULSE 86; RESP 16; TEMP 97.9
== END 2022-08-14 15:16 | disposition home or self-care (01) ==
LOC: FECT 11:15
PROVIDERS: ATTEND Psychiatry & Neurology Psychiatry
PROC: GZB4ZZZ Other Electroconvulsive Therapy (ICD-10-PCS; principal; 2022-08-14 14:04)
DX: F33.2 Major depressive disorder, recurrent severe without psychotic features (principal)
CPT/HCPCS: 90870; 94760

== ENCOUNTER 2022-08-19 09:35 | Day surgery (SDC) | payer OTHER, BC ==
[2022-08-19 10:13] VITALS: BMI 48.7
[2022-08-19] MEDS ORDERED: KETAMINE HCL 500 MG/10 ML VIAL ONE (10:46)
[2022-08-19] MEDS ORDERED: PROPOFOL 20 ML ONE (11:03)
[2022-08-19] MEDS ORDERED: SUCCINYLCHOLINE CHLORIDE 200 MG/10 ML SYRINGE ONE (11:03)
[2022-08-19 11:39] VITALS: PULSE 88; RESP 18; TEMP 98
[2022-08-19 11:54] VITALS: BP 128/70
== END 2022-08-19 12:15 | disposition home or self-care (01) ==
LOC: FECT 09:35
PROVIDERS: ATTEND Psychiatry & Neurology Psychiatry
PROC: GZB4ZZZ Other Electroconvulsive Therapy (ICD-10-PCS; principal; 2022-08-19 10:53)
DX: F32.A Depression, unspecified (principal)
CPT/HCPCS: 81025; 90870; 94760

== ENCOUNTER 2022-08-21 09:56 | Day surgery (SDC) | payer OTHER, BC ==
[2022-08-18 17:22] VITALS: BMI 48.7
[2022-08-21 10:13] VITALS: RESP 18
[2022-08-21] MEDS ORDERED: KETAMINE HCL 500 MG/10 ML VIAL ONE (10:34)
[2022-08-21 11:38] VITALS: TEMP 98.4
[2022-08-21 12:00] VITALS: BP 112/71; PULSE 81
== END 2022-08-21 12:03 | disposition home or self-care (01) ==
LOC: FECT 09:56
PROVIDERS: ATTEND Psychiatry & Neurology Psychiatry
PROC: GZB4ZZZ Other Electroconvulsive Therapy (ICD-10-PCS; principal; 2022-08-21 10:42)
DX: F32.A Depression, unspecified (principal)
CPT/HCPCS: 90870; 94760

== ENCOUNTER 2022-08-26 08:41 | Day surgery (SDC) | payer OTHER, BC ==
[2022-08-26 08:57] VITALS: BMI 48.7
[2022-08-26] MEDS ORDERED: KETAMINE HCL 500 MG/10 ML VIAL ONE (09:20)
[2022-08-26 10:43] VITALS: RESP 16
[2022-08-26 10:49] VITALS: TEMP 98.2
[2022-08-26 10:53] VITALS: BP 128/86; PULSE 84
== END 2022-08-26 10:50 | disposition home or self-care (01) ==
LOC: FECT 08:41
PROVIDERS: ATTEND Psychiatry & Neurology Psychiatry
PROC: GZB4ZZZ Other Electroconvulsive Therapy (ICD-10-PCS; principal; 2022-08-26 09:34)
DX: F32.A Depression, unspecified (principal)
CPT/HCPCS: 81025; 90870; 94760

== ENCOUNTER 2022-08-29 08:04 | Day surgery (SDC) | payer OTHER, BC ==
[2022-08-29 08:38] VITALS: BMI 48.7
[2022-08-29] MEDS ORDERED: KETAMINE HCL 500 MG/10 ML VIAL ONE (09:00)
[2022-08-29 10:10] VITALS: RESP 18; TEMP 97.7
[2022-08-29 10:31] VITALS: BP 138/74; PULSE 79
== END 2022-08-29 10:33 | disposition home or self-care (01) ==
LOC: FECT 08:04
PROVIDERS: ATTEND Psychiatry & Neurology Psychiatry
PROC: GZB4ZZZ Other Electroconvulsive Therapy (ICD-10-PCS; principal; 2022-08-29 09:20)
DX: F33.2 Major depressive disorder, recurrent severe without psychotic features (principal)
CPT/HCPCS: 90870; 94760

== ENCOUNTER 2022-09-02 10:06 | Day surgery (SDC) | payer OTHER, BC ==
[2022-09-02] MEDS ORDERED: LACTATED RINGERS SOLUTION 1,000 ML IV SCH (10:15)
[2022-09-02 10:39] VITALS: BMI 48.7
[2022-09-02] MEDS ORDERED: KETAMINE HCL 500 MG/10 ML VIAL ONE (10:51)
[2022-09-02 12:59] VITALS: RESP 17; TEMP 98.4
[2022-09-02 13:03] VITALS: BP 100/50; PULSE 80
== END 2022-09-02 12:25 | disposition home or self-care (01) ==
LOC: FECT 10:06
PROVIDERS: ATTEND Psychiatry & Neurology Psychiatry
PROC: GZB4ZZZ Other Electroconvulsive Therapy (ICD-10-PCS; principal; 2022-09-02 11:10)
DX: F32.A Depression, unspecified (principal)
CPT/HCPCS: 81025; 90870; 94760

== ENCOUNTER 2022-09-05 09:04 | Day surgery (SDC) | payer OTHER, BC ==
[2022-09-05 09:23] VITALS: BMI 48.7
[2022-09-05] MEDS ORDERED: KETOROLAC TROMETHAMINE 30 MG/1 ML VIAL ONE (09:56)
[2022-09-05] MEDS ORDERED: ONDANSETRON 4 MG/2 ML VIAL ONE (09:56)
[2022-09-05] MEDS ORDERED: SUCCINYLCHOLINE CHLORIDE 200 MG/10 ML SYRINGE ONE (09:56)
[2022-09-05] MEDS ORDERED: KETAMINE HCL 500 MG/10 ML VIAL ONE (10:19)
[2022-09-05] MEDS ORDERED: PROPOFOL 20 ML ONE (10:23)
[2022-09-05 11:41] VITALS: BP 139/74; TEMP 97.4
[2022-09-05 11:42] VITALS: PULSE 94; RESP 18
== END 2022-09-05 11:44 | disposition home or self-care (01) ==
LOC: FECT 09:04
PROVIDERS: ATTEND Psychiatry & Neurology Psychiatry
PROC: GZB4ZZZ Other Electroconvulsive Therapy (ICD-10-PCS; principal; 2022-09-05 10:24)
DX: F32.A Depression, unspecified (principal)
CPT/HCPCS: 90870; 94760

== ENCOUNTER 2022-09-08 06:40 | Day surgery (SDC) | payer OTHER, BC ==
[2022-09-08 07:04] VITALS: BMI 48.7
[2022-09-08] MEDS ORDERED: ONDANSETRON 4 MG/2 ML VIAL ONE (07:24)
[2022-09-08] MEDS ORDERED: KETOROLAC TROMETHAMINE 30 MG/1 ML VIAL ONE (07:24)
[2022-09-08] MEDS ORDERED: PROPOFOL 20 ML ONE (07:24)
[2022-09-08] MEDS ORDERED: DEXAMETHASONE SOD PHOSPHATE 4 MG/1 ML VIAL ONE (07:24)
[2022-09-08] MEDS ORDERED: KETAMINE HCL 500 MG/10 ML VIAL ONE (07:24)
[2022-09-08] MEDS ORDERED: SUCCINYLCHOLINE CHLORIDE 200 MG/10 ML SYRINGE ONE (07:24)
[2022-09-08] MEDS ORDERED: ONDANSETRON 4 MG/2 ML VIAL IVPUSH PRN (07:49)
[2022-09-08] MEDS ORDERED: LACTATED RINGERS SOLUTION 1,000 ML IV SCH (08:00)
[2022-09-08 08:59] VITALS: RESP 20; TEMP 97.5
[2022-09-08 09:02] VITALS: BP 125/65; PULSE 82
== END 2022-09-08 08:45 | disposition home or self-care (01) ==
LOC: FECT 06:40
PROVIDERS: ATTEND Psychiatry & Neurology Psychiatry
PROC: GZB4ZZZ Other Electroconvulsive Therapy (ICD-10-PCS; principal; 2022-09-08 07:36)
DX: F32.A Depression, unspecified (principal)
CPT/HCPCS: 81025; 90870; 94760

== ENCOUNTER 2022-09-11 09:44 | Day surgery (SDC) | payer OTHER, BC ==
[2022-09-05 14:17] VITALS: BMI 48.7
[~2022-09-11 09:44] MED LIST changes: -KETAMINE HCL 500 MG/10 ML VIAL ONE; +LACTATED RINGERS SOLUTION 1,000 ML IV SCH
[2022-09-11] MEDS ORDERED: KETAMINE HCL 500 MG/10 ML VIAL ONE (10:37)
[2022-09-11 11:51] VITALS: BP 152/75; PULSE 60; RESP 18; TEMP 97.6
== END 2022-09-11 11:51 | disposition home or self-care (01) ==
LOC: FECT 09:44
PROVIDERS: ATTEND Psychiatry & Neurology Psychiatry
PROC: GZB4ZZZ Other Electroconvulsive Therapy (ICD-10-PCS; principal; 2022-09-11 10:48)
DX: F32.A Depression, unspecified (principal)
CPT/HCPCS: 90870; 94760

== ENCOUNTER 2022-09-16 07:32 | Day surgery (SDC) | payer OTHER, BC ==
[2022-09-16 07:47] VITALS: BMI 48.7
[2022-09-16] MEDS ORDERED: KETAMINE HCL 500 MG/10 ML VIAL ONE (08:48)
[2022-09-16] MEDS ORDERED: ONDANSETRON 4 MG/2 ML VIAL IVPUSH PRN (09:18)
[2022-09-16] MEDS ORDERED: LACTATED RINGERS SOLUTION 1,000 ML IV SCH (09:30)
[2022-09-16 09:49] VITALS: RESP 18; TEMP 97.7
[2022-09-16 10:38] VITALS: BP 121/72; PULSE 82
== END 2022-09-16 10:10 | disposition home or self-care (01) ==
LOC: FECT 07:32
PROVIDERS: ATTEND Psychiatry & Neurology Psychiatry
PROC: GZB4ZZZ Other Electroconvulsive Therapy (ICD-10-PCS; principal; 2022-09-16 09:00)
DX: F33.2 Major depressive disorder, recurrent severe without psychotic features (principal)
CPT/HCPCS: 81025; 90870; 94760

== ENCOUNTER 2022-10-07 08:36 | Day surgery (SDC) | payer OTHER, BC ==
[2022-10-07 08:54] VITALS: BMI 48.5
[2022-10-07] MEDS ORDERED: KETAMINE HCL 500 MG/10 ML VIAL ONE (09:28)
[2022-10-07 10:18] VITALS: TEMP 97.4
[2022-10-07 10:45] VITALS: BP 121/59; PULSE 84; RESP 20
== END 2022-10-07 10:45 | disposition home or self-care (01) ==
LOC: FECT 08:36
PROVIDERS: ATTEND Psychiatry & Neurology Psychiatry
PROC: GZB4ZZZ Other Electroconvulsive Therapy (ICD-10-PCS; principal; 2022-10-07 09:38)
DX: F32.A Depression, unspecified (principal)
CPT/HCPCS: 81025; 90870; 94760

== ENCOUNTER 2022-10-09 07:08 | Day surgery (SDC) | payer OTHER, BC ==
[2022-10-07 13:59] VITALS: BMI 48.5
[2022-10-09] MEDS ORDERED: KETAMINE HCL 500 MG/10 ML VIAL ONE (08:35)
[2022-10-09 09:35] VITALS: RESP 18; TEMP 97.8
[2022-10-09 10:23] VITALS: BP 121/62; PULSE 81
== END 2022-10-09 10:00 | disposition home or self-care (01) ==
LOC: FECT 07:08
PROVIDERS: ATTEND Psychiatry & Neurology Psychiatry
PROC: GZB4ZZZ Other Electroconvulsive Therapy (ICD-10-PCS; principal; 2022-10-09 08:50)
DX: F32.A Depression, unspecified (principal)
CPT/HCPCS: 90870; 94760

== ENCOUNTER 2022-10-14 08:38 | Day surgery (SDC) | payer OTHER, BC ==
[2022-10-14 08:58] VITALS: BMI 48.6
[2022-10-14] MEDS ORDERED: KETAMINE HCL 500 MG/10 ML VIAL ONE (09:36)
[2022-10-14 10:09] VITALS: TEMP 98.6
[2022-10-14 10:59] VITALS: RESP 18
[2022-10-14 11:08] VITALS: BP 112/66; PULSE 72
== END 2022-10-14 11:05 | disposition home or self-care (01) ==
LOC: FECT 08:38
PROVIDERS: ATTEND Psychiatry & Neurology Psychiatry
PROC: GZB4ZZZ Other Electroconvulsive Therapy (ICD-10-PCS; principal; 2022-10-14 09:49)
DX: F32.A Depression, unspecified (principal)
CPT/HCPCS: 81025; 90870; 94760

== ENCOUNTER 2022-10-24 08:39 | Day surgery (SDC) | payer OTHER, BC ==
[2022-10-24 08:54] VITALS: BMI 48.7
[2022-10-24] MEDS ORDERED: KETAMINE HCL 500 MG/10 ML VIAL ONE (10:18)
[2022-10-24 11:56] VITALS: RESP 20; TEMP 98.9
[2022-10-24 12:00] VITALS: BP 124/62; PULSE 80
== END 2022-10-24 12:00 | disposition home or self-care (01) ==
LOC: FECT 08:39
PROVIDERS: ATTEND Psychiatry & Neurology Psychiatry
PROC: GZB4ZZZ Other Electroconvulsive Therapy (ICD-10-PCS; principal; 2022-10-24 10:32)
DX: F32.A Depression, unspecified (principal)
CPT/HCPCS: 81025; 90870; 94760

== ENCOUNTER 2022-10-28 09:20 | Day surgery (SDC) | payer BC, OTHER ==
[2022-10-28] MEDS ORDERED: KETAMINE HCL 500 MG/10 ML VIAL ONE (11:30)
[2022-10-28 12:33] VITALS: RESP 16; TEMP 98
[2022-10-28 12:54] VITALS: BP 129/69; PULSE 92
== END 2022-10-28 12:50 | disposition home or self-care (01) ==
LOC: FECT 09:20
PROVIDERS: ATTEND Psychiatry & Neurology Psychiatry
PROC: GZB4ZZZ Other Electroconvulsive Therapy (ICD-10-PCS; principal; 2022-10-28 11:43)
DX: F32.A Depression, unspecified (principal)
CPT/HCPCS: 81025; 90870; 94760

== ENCOUNTER 2022-11-06 08:40 | Day surgery (SDC) | payer OTHER, BC ==
[2022-11-06 09:06] VITALS: BMI 50.6
[2022-11-06 10:49] VITALS: TEMP 96.7
[2022-11-06 10:52] VITALS: BP 122/74; PULSE 78; RESP 19
== END 2022-11-06 10:55 | disposition home or self-care (01) ==
LOC: FECT 08:40
PROVIDERS: ATTEND Psychiatry & Neurology Psychiatry
PROC: GZB4ZZZ Other Electroconvulsive Therapy (ICD-10-PCS; principal; 2022-11-06 09:48)
DX: F32.A Depression, unspecified (principal)
CPT/HCPCS: 81025; 90870; 94760

== ENCOUNTER 2022-11-11 08:04 | Day surgery (SDC) | payer BC, OTHER ==
[2022-11-07 10:22] VITALS: BMI 50.6
[2022-11-11 10:17] VITALS: TEMP 98.2
[2022-11-11 10:19] VITALS: BP 108/59; PULSE 78; RESP 18
== END 2022-11-11 10:44 | disposition home or self-care (01) ==
LOC: FECT 08:04
PROVIDERS: ATTEND Psychiatry & Neurology Psychiatry
PROC: GZB4ZZZ Other Electroconvulsive Therapy (ICD-10-PCS; principal; 2022-11-11 09:28)
DX: F32.A Depression, unspecified (principal)
CPT/HCPCS: 81025; 90870; 94760

== ENCOUNTER 2022-11-20 09:38 | Day surgery (SDC) | payer OTHER, BC ==
[2022-11-12 15:34] VITALS: BMI 50.6
[2022-11-20 11:42] VITALS: RESP 18; TEMP 97.9
[2022-11-20 12:58] VITALS: BP 126/84; PULSE 82
== END 2022-11-20 12:30 | disposition home or self-care (01) ==
LOC: FECT 09:38
PROVIDERS: ATTEND Psychiatry & Neurology Psychiatry
PROC: GZB4ZZZ Other Electroconvulsive Therapy (ICD-10-PCS; principal; 2022-11-20 11:01)
DX: F32.A Depression, unspecified (principal)
CPT/HCPCS: 81025; 90870; 94760

== ENCOUNTER 2022-11-25 09:12 | Day surgery (SDC) | payer OTHER, BC ==
[2022-11-25 09:39] VITALS: BMI 48.7
[2022-11-25 12:15] VITALS: RESP 19; TEMP 98.2
[2022-11-25 12:23] VITALS: BP 118/68; PULSE 72
== END 2022-11-25 12:35 | disposition home or self-care (01) ==
LOC: FECT 09:12
PROVIDERS: ATTEND Psychiatry & Neurology Psychiatry
PROC: GZB4ZZZ Other Electroconvulsive Therapy (ICD-10-PCS; principal; 2022-11-25 11:21)
DX: F33.2 Major depressive disorder, recurrent severe without psychotic features (principal)
CPT/HCPCS: 81025; 90870; 94760

== ENCOUNTER → 2022-12-09 | Day surgery (SDC) | payer OTHER, BC ==
[2022-12-05 17:42] VITALS: BMI 50.6
[~2022-12-09] MED LIST changes: +KETAMINE HCL 500 MG/10 ML VIAL ONE; -LACTATED RINGERS SOLUTION 1,000 ML IV SCH
[2022-12-09 11:58] VITALS: RESP 16
[2022-12-09 12:05] VITALS: TEMP 97.8
[2022-12-09 12:19] VITALS: BP 124/88; PULSE 90
== END | disposition home or self-care (01) ==
LOC: FECT 08:58
PROVIDERS: ATTEND Psychiatry & Neurology Psychiatry
PROC: GZB4ZZZ Other Electroconvulsive Therapy (ICD-10-PCS; principal; 2022-12-09 11:22)
DX: F32.A Depression, unspecified (principal)
CPT/HCPCS: 81025; 90870; 94760

== ENCOUNTER 2022-12-16 07:27 | Day surgery (SDC) | payer OTHER, BC ==
[2022-12-16 07:51] VITALS: BMI 48.9
[2022-12-16] MEDS ORDERED: KETAMINE HCL 500 MG/10 ML VIAL ONE (08:25)
[2022-12-16 09:41] VITALS: BP 123/50; PULSE 87; RESP 16; TEMP 98.1
== END 2022-12-16 10:11 | disposition home or self-care (01) ==
LOC: FECT 07:27
PROVIDERS: ATTEND Psychiatry & Neurology Psychiatry
PROC: GZB4ZZZ Other Electroconvulsive Therapy (ICD-10-PCS; principal; 2022-12-16 08:51)
DX: F33.2 Major depressive disorder, recurrent severe without psychotic features (principal)
CPT/HCPCS: 81025; 90870; 94760

== ENCOUNTER 2022-12-23 06:57 | Day surgery (SDC) | payer OTHER, BC ==
[2022-12-19 16:38] VITALS: BMI 48.9
[2022-12-23] MEDS ORDERED: SUCCINYLCHOLINE CHLORIDE 200 MG/10 ML SYRINGE ONE (07:13)
[2022-12-23] MEDS ORDERED: PROPOFOL 20 ML ONE (07:13)
[2022-12-23] MEDS ORDERED: KETAMINE HCL 200 MG/20 ML VIAL ONE (07:14)
[2022-12-23] MEDS ORDERED: ONDANSETRON 4 MG/2 ML VIAL ONE (07:14)
[2022-12-23] MEDS ORDERED: KETOROLAC TROMETHAMINE 30 MG/1 ML VIAL ONE (07:14)
[2022-12-23 08:56] VITALS: RESP 18
[2022-12-23 09:07] VITALS: TEMP 97.2
[2022-12-23 09:23] VITALS: BP 126/77; PULSE 92
[2022-12-23] MEDS ORDERED: PROMETHAZINE HCL 25 MG/1 ML VIAL IVPB PRN (10:07)
[2022-12-23] MEDS ORDERED: ACETAMINOPHEN 500 MG TABLET (FP) PO PRN (10:07)
[2022-12-23] MEDS ORDERED: LACTATED RINGERS SOLUTION 1,000 ML IV SCH (10:15)
== END 2022-12-23 09:39 | disposition home or self-care (01) ==
LOC: FECT 06:57
PROVIDERS: ATTEND Psychiatry & Neurology Psychiatry
PROC: GZB4ZZZ Other Electroconvulsive Therapy (ICD-10-PCS; principal; 2022-12-23 08:25)
DX: F33.2 Major depressive disorder, recurrent severe without psychotic features (principal)
CPT/HCPCS: 81025; 90870; 94760

== ENCOUNTER → 2022-12-30 | Day surgery (SDC) | payer OTHER, BC ==
[2022-12-30 10:21] VITALS: BMI 49.8
[2022-12-30 12:39] VITALS: PULSE 84; RESP 16; TEMP 97.4
[2022-12-30 12:58] VITALS: BP 130/80
== END | disposition home or self-care (01) ==
LOC: FECT 09:53
PROVIDERS: ATTEND Psychiatry & Neurology Psychiatry
PROC: GZB4ZZZ Other Electroconvulsive Therapy (ICD-10-PCS; principal; 2022-12-30 11:40)
DX: F32.A Depression, unspecified (principal)
CPT/HCPCS: 81025; 90870; 94760

== ENCOUNTER 2023-01-13 09:00 | Day surgery (SDC) | payer OTHER, BC ==
[2023-01-13 09:33] VITALS: BMI 49.6
[2023-01-13 10:38] VITALS: RESP 16
[2023-01-13] MEDS ORDERED: ACETAMINOPHEN 500 MG TABLET (FP) PO ONE ×2 (11:10)
[2023-01-13 11:26] VITALS: BP 121/64; TEMP 98.4
[2023-01-13 11:52] VITALS: PULSE 91
== END 2023-01-13 11:40 | disposition home or self-care (01) ==
LOC: FECT 09:00
PROVIDERS: ATTEND Student in an Organized Health Care Education/Training Program
PROC: GZB4ZZZ Other Electroconvulsive Therapy (ICD-10-PCS; principal; 2023-01-13 10:22)
DX: F33.2 Major depressive disorder, recurrent severe without psychotic features (principal)
CPT/HCPCS: 81025; 90870; 94760

== ENCOUNTER 2023-01-20 11:53 | Day surgery (SDC) | payer OTHER, BC ==
[2023-01-16 17:31] VITALS: BMI 49.6
[2023-01-20 12:43] VITALS: RESP 16
[2023-01-20 14:17] VITALS: BP 112/68; TEMP 98.3
[2023-01-20 14:28] VITALS: PULSE 91
== END 2023-01-20 14:40 | disposition home or self-care (01) ==
LOC: FECT 11:53
PROVIDERS: ATTEND Psychiatry & Neurology Psychiatry
PROC: GZB4ZZZ Other Electroconvulsive Therapy (ICD-10-PCS; principal; 2023-01-20 13:26)
DX: F32.A Depression, unspecified (principal)
CPT/HCPCS: 81025; 90870; 94760

== ENCOUNTER 2023-01-27 08:26 | Day surgery (SDC) | payer OTHER, BC ==
[2023-01-22 08:05] VITALS: BMI 49.6
[2023-01-27] MEDS ORDERED: PROPOFOL 20 ML ONE (09:39)
[2023-01-27] MEDS ORDERED: KETOROLAC TROMETHAMINE 30 MG/1 ML VIAL ONE (09:39)
[2023-01-27] MEDS ORDERED: DEXAMETHASONE SOD PHOSPHATE 4 MG/1 ML VIAL ONE (09:39)
[2023-01-27] MEDS ORDERED: SUCCINYLCHOLINE CHLORIDE 200 MG/10 ML SYRINGE ONE (09:39)
[2023-01-27] MEDS ORDERED: ONDANSETRON 4 MG/2 ML VIAL IVPUSH PRN (09:41)
[2023-01-27] MEDS ORDERED: PROMETHAZINE HCL 25 MG/1 ML VIAL IVPB PRN (09:41)
[2023-01-27] MEDS ORDERED: LACTATED RINGERS SOLUTION 1,000 ML IV SCH (09:45)
[2023-01-27] MEDS ORDERED: KETAMINE HCL 500 MG/10 ML VIAL ONE (09:46)
[2023-01-27 10:46] VITALS: TEMP 98
[2023-01-27 11:01] VITALS: BP 95/56; PULSE 81; RESP 18
== END 2023-01-27 11:10 | disposition home or self-care (01) ==
LOC: FECT 08:26
PROVIDERS: ATTEND Student in an Organized Health Care Education/Training Program
PROC: GZB4ZZZ Other Electroconvulsive Therapy (ICD-10-PCS; principal; 2023-01-27 09:54)
DX: F33.2 Major depressive disorder, recurrent severe without psychotic features (principal)
CPT/HCPCS: 81025; 90870; 94760

== ENCOUNTER 2023-02-03 11:19 | Day surgery (SDC) | payer OTHER, BC ==
[2023-01-28 07:14] VITALS: BMI 49.6
[2023-02-03] MEDS ORDERED: KETAMINE HCL 100 MG/ML - 5ML VIAL ONE (12:29)
[2023-02-03 13:37] VITALS: PULSE 80; RESP 16; TEMP 97.6
[2023-02-03 14:11] VITALS: BP 120/78
== END 2023-02-03 14:00 | disposition home or self-care (01) ==
LOC: FECT 11:19
PROVIDERS: ATTEND Student in an Organized Health Care Education/Training Program
PROC: GZB4ZZZ Other Electroconvulsive Therapy (ICD-10-PCS; principal; 2023-02-03 12:42)
DX: F32.A Depression, unspecified (principal)
CPT/HCPCS: 81025; 90870; 94760

== ENCOUNTER 2023-02-10 11:13 | Day surgery (SDC) | payer BC, OTHER ==
[2023-02-04 16:05] VITALS: BMI 49.6
[2023-02-10] MEDS ORDERED: KETAMINE HCL 100 MG/ML - 5ML VIAL ONE (13:37)
[2023-02-10 14:40] VITALS: PULSE 96; TEMP 97.2
[2023-02-10 14:57] VITALS: BP 133/88; RESP 18
== END 2023-02-10 15:04 | disposition home or self-care (01) ==
LOC: FECT 11:13
PROVIDERS: ATTEND Psychiatry & Neurology Psychiatry
PROC: GZB4ZZZ Other Electroconvulsive Therapy (ICD-10-PCS; principal; 2023-02-10 13:54)
DX: F33.2 Major depressive disorder, recurrent severe without psychotic features (principal)
CPT/HCPCS: 81025; 90870; 94760

== ENCOUNTER → 2023-02-17 | Day surgery (SDC) | payer OTHER ==
[~2023-02-17] MED LIST changes: +KETAMINE HCL 100 MG/ML - 5ML VIAL ONE; -KETAMINE HCL 500 MG/10 ML VIAL ONE
[2023-02-17 09:06] VITALS: BMI 47.7
[2023-02-17 12:03] VITALS: TEMP 98.5
[2023-02-17 12:31] VITALS: BP 130/68; PULSE 72; RESP 16
== END | disposition home or self-care (01) ==
LOC: FECT 08:29
PROVIDERS: ATTEND Student in an Organized Health Care Education/Training Program
PROC: GZB4ZZZ Other Electroconvulsive Therapy (ICD-10-PCS; principal; 2023-02-17 11:35)
DX: F32.A Depression, unspecified (principal)
CPT/HCPCS: 81025; 90870; 94760

== ENCOUNTER 2023-02-24 11:15 | Day surgery (SDC) | payer OTHER ==
[2023-02-18 16:24] VITALS: BMI 47.7
[2023-02-24] MEDS ORDERED: KETAMINE HCL 100 MG/ML - 5ML VIAL ONE (13:15)
[2023-02-24 14:30] VITALS: RESP 16; TEMP 98.3
[2023-02-24 14:50] VITALS: BP 135/82; PULSE 98
== END 2023-02-24 14:50 | disposition home or self-care (01) ==
LOC: FECT 11:15
PROVIDERS: ATTEND Student in an Organized Health Care Education/Training Program
PROC: GZB4ZZZ Other Electroconvulsive Therapy (ICD-10-PCS; principal; 2023-02-24 13:29)
DX: F33.2 Major depressive disorder, recurrent severe without psychotic features (principal)
CPT/HCPCS: 81025; 90870; 94760

== ENCOUNTER 2023-03-03 09:09 | Day surgery (SDC) | payer OTHER, BC ==
[2023-02-25 14:47] VITALS: BMI 47.7
[~2023-03-03 09:09] MED LIST changes: -KETAMINE HCL 100 MG/ML - 5ML VIAL ONE; +LACTATED RINGERS SOLUTION 1,000 ML IV SCH; +ONDANSETRON 4 MG/2 ML VIAL IVPUSH PRN
[2023-03-03 09:38] VITALS: PULSE 90; RESP 18
[2023-03-03] MEDS ORDERED: KETAMINE HCL 100 MG/ML - 5ML VIAL ONE (10:14)
[2023-03-03] MEDS ORDERED: ACETAMINOPHEN 500 MG TABLET (FP) PO ONE (11:25)
[2023-03-03 16:01] VITALS: BP 130/70; TEMP 97.8
== END 2023-03-03 11:36 | disposition home or self-care (01) ==
LOC: FECT 09:09
PROVIDERS: ATTEND Psychiatry & Neurology Psychiatry
PROC: GZB4ZZZ Other Electroconvulsive Therapy (ICD-10-PCS; principal; 2023-03-03 10:30)
DX: F33.2 Major depressive disorder, recurrent severe without psychotic features (principal)
CPT/HCPCS: 81025; 90870; 94760

== ENCOUNTER 2023-03-10 08:01 | Day surgery (SDC) | payer OTHER, BC ==
[2023-03-03 16:10] VITALS: BMI 47.7
[2023-03-10 10:32] VITALS: RESP 19; TEMP 98.6
[2023-03-10 10:41] VITALS: BP 128/60; PULSE 80
== END 2023-03-10 10:55 | disposition home or self-care (01) ==
LOC: FECT 08:01
PROVIDERS: ATTEND Student in an Organized Health Care Education/Training Program
PROC: GZB4ZZZ Other Electroconvulsive Therapy (ICD-10-PCS; principal; 2023-03-10 09:40)
DX: F33.2 Major depressive disorder, recurrent severe without psychotic features (principal)
CPT/HCPCS: 81025; 90870; 94760

== ENCOUNTER 2023-03-17 10:01 | Day surgery (SDC) | payer OTHER, BC ==
[2023-03-10 14:07] VITALS: BMI 47.7
[2023-03-17 10:38] VITALS: RESP 16
[2023-03-17 12:31] VITALS: TEMP 97.4
[2023-03-17 12:57] VITALS: BP 116/78; PULSE 84
== END 2023-03-17 12:57 | disposition home or self-care (01) ==
LOC: FECT 10:01
PROVIDERS: ATTEND Psychiatry & Neurology Psychiatry
PROC: GZB4ZZZ Other Electroconvulsive Therapy (ICD-10-PCS; principal; 2023-03-17 11:37)
DX: F32.A Depression, unspecified (principal)
CPT/HCPCS: 81025; 90870; 94760

== ENCOUNTER 2023-03-24 08:55 | Day surgery (SDC) | payer OTHER, BC ==
[2023-03-17 14:58] VITALS: BMI 47.7
[2023-03-24] MEDS ORDERED: ONDANSETRON 4 MG/2 ML VIAL IVPUSH PRN (09:20)
[2023-03-24] MEDS ORDERED: LACTATED RINGERS SOLUTION 1,000 ML IV SCH (09:30)
[2023-03-24 12:14] VITALS: RESP 18
[2023-03-24 12:26] VITALS: TEMP 98
[2023-03-24 12:50] VITALS: BP 145/74; PULSE 80
== END 2023-03-24 12:52 | disposition home or self-care (01) ==
LOC: FECT 08:55
PROVIDERS: ATTEND Student in an Organized Health Care Education/Training Program
PROC: GZB4ZZZ Other Electroconvulsive Therapy (ICD-10-PCS; principal; 2023-03-24 11:36)
DX: F33.2 Major depressive disorder, recurrent severe without psychotic features (principal)
CPT/HCPCS: 81025; 90870; 94760

== ENCOUNTER 2023-04-02 09:36 | Day surgery (SDC) | payer BC, OTHER ==
[2023-03-24 16:11] VITALS: BMI 47.7
[2023-04-02 14:19] VITALS: BP 132/75; PULSE 105; RESP 20; TEMP 97.8
== END 2023-04-02 10:35 | disposition home or self-care (01) ==
LOC: FECT 09:36
PROVIDERS: ATTEND Student in an Organized Health Care Education/Training Program
PROC: GZB4ZZZ Other Electroconvulsive Therapy (ICD-10-PCS; principal; 2023-04-02)
DX: F32.A Depression, unspecified (principal); Z53.8 Procedure and treatment not carried out for other reasons
CPT/HCPCS: 81025

== ENCOUNTER 2023-04-07 09:03 | Day surgery (SDC) | payer OTHER ==
[2023-04-07 09:20] VITALS: BMI 47.0
[2023-04-07] MEDS ORDERED: KETAMINE HCL 100 MG/ML - 5ML VIAL ONE (10:09)
[2023-04-07 11:22] VITALS: PULSE 79; RESP 16; TEMP 97.9
[2023-04-07 11:43] VITALS: BP 150/90
== END 2023-04-07 11:47 | disposition home or self-care (01) ==
LOC: FECT 09:03
PROVIDERS: ATTEND Student in an Organized Health Care Education/Training Program
PROC: GZB4ZZZ Other Electroconvulsive Therapy (ICD-10-PCS; principal; 2023-04-07 10:34)
DX: F32.A Depression, unspecified (principal)
CPT/HCPCS: 81025; 90870; 94760

== ENCOUNTER 2023-04-09 08:29 | Day surgery (SDC) | payer OTHER ==
[2023-04-02 17:14] VITALS: BMI 47.7
[2023-04-09] MEDS ORDERED: KETAMINE HCL 100 MG/ML - 5ML VIAL ONE (10:16)
[2023-04-09] MEDS ORDERED: PROPOFOL 20 ML ONE (10:20)
[2023-04-09 11:19] VITALS: TEMP 98.6
[2023-04-09 11:53] VITALS: BP 100/78; PULSE 79; RESP 18
== END 2023-04-09 11:40 | disposition home or self-care (01) ==
LOC: FECT 08:29
PROVIDERS: ATTEND Student in an Organized Health Care Education/Training Program
PROC: GZB4ZZZ Other Electroconvulsive Therapy (ICD-10-PCS; principal; 2023-04-09 10:25)
DX: F32.A Depression, unspecified (principal)
CPT/HCPCS: 90870; 94760

== ENCOUNTER 2023-04-16 10:33 | Day surgery (SDC) | payer OTHER ==
[2023-04-16 11:03] VITALS: BMI 46.5
[2023-04-16] MEDS ORDERED: ONDANSETRON 4 MG/2 ML VIAL ONE (11:53)
[2023-04-16] MEDS ORDERED: DEXAMETHASONE SOD PHOSPHATE 4 MG/1 ML VIAL ONE (11:53)
[2023-04-16] MEDS ORDERED: KETOROLAC TROMETHAMINE 30 MG/1 ML VIAL ONE (11:53)
[2023-04-16] MEDS ORDERED: SUCCINYLCHOLINE CHLORIDE 200 MG/10 ML SYRINGE ONE (11:53)
[2023-04-16] MEDS ORDERED: PROPOFOL 20 ML ONE (11:53)
[2023-04-16] MEDS ORDERED: KETAMINE HCL 100 MG/ML - 5ML VIAL ONE (12:04)
[2023-04-16 13:01] VITALS: TEMP 98.1
[2023-04-16 13:31] VITALS: BP 118/64; PULSE 90; RESP 18
== END 2023-04-16 13:30 | disposition home or self-care (01) ==
LOC: FECT 10:33
PROVIDERS: ATTEND Student in an Organized Health Care Education/Training Program
PROC: GZB4ZZZ Other Electroconvulsive Therapy (ICD-10-PCS; principal; 2023-04-16 12:14)
DX: F32.A Depression, unspecified (principal)
CPT/HCPCS: 81025; 90870; 94760

== ENCOUNTER 2023-04-23 08:50 | Day surgery (SDC) | payer OTHER ==
[2023-04-23 09:29] VITALS: BMI 46.0
[2023-04-23] MEDS ORDERED: KETAMINE HCL 100 MG/ML - 5ML VIAL ONE (09:58)
[2023-04-23 11:11] VITALS: RESP 18; TEMP 97.8
[2023-04-23 12:12] VITALS: BP 118/72; PULSE 72
== END 2023-04-23 11:50 | disposition home or self-care (01) ==
LOC: FECT 08:50
PROVIDERS: ATTEND Student in an Organized Health Care Education/Training Program
PROC: GZB4ZZZ Other Electroconvulsive Therapy (ICD-10-PCS; principal; 2023-04-23 10:31)
DX: F32.A Depression, unspecified (principal)
CPT/HCPCS: 81025; 90870; 94760

== ENCOUNTER 2023-04-30 08:28 | Day surgery (SDC) | payer OTHER ==
[2023-04-30 08:56] VITALS: BMI 45.6
[2023-04-30] MEDS ORDERED: KETAMINE HCL 100 MG/ML - 5ML VIAL ONE (09:51)
[2023-04-30 10:50] VITALS: RESP 16
[2023-04-30 11:11] VITALS: BP 106/88; PULSE 84; TEMP 98.1
== END 2023-04-30 11:22 | disposition home or self-care (01) ==
LOC: FECT 08:28
PROVIDERS: ATTEND Student in an Organized Health Care Education/Training Program
PROC: GZB4ZZZ Other Electroconvulsive Therapy (ICD-10-PCS; principal; 2023-04-30 10:18)
DX: F32.A Depression, unspecified (principal)
CPT/HCPCS: 81025; 90870; 94760

== ENCOUNTER 2023-05-14 09:22 | Day surgery (SDC) | payer OTHER ==
[2023-05-14 09:54] VITALS: TEMP 98; BMI 45.3
[2023-05-14] MEDS ORDERED: KETAMINE HCL 100 MG/ML - 5ML VIAL ONE (10:49)
[2023-05-14] MEDS: ACETAMINOPHEN 500 MG TABLET (FP) PO ONE (12:00)
[2023-05-14 12:15] VITALS: RESP 19
[2023-05-14 12:25] VITALS: BP 100/68; PULSE 89
== END 2023-05-14 12:22 | disposition home or self-care (01) ==
LOC: FECT 09:22
PROVIDERS: ATTEND Student in an Organized Health Care Education/Training Program
PROC: GZB4ZZZ Other Electroconvulsive Therapy (ICD-10-PCS; principal; 2023-05-14 11:10)
DX: F33.2 Major depressive disorder, recurrent severe without psychotic features (principal)
CPT/HCPCS: 81025; 90870; 94760

== ENCOUNTER 2023-05-21 09:55 | Day surgery (SDC) | payer OTHER ==
[2023-05-21 10:26] VITALS: RESP 16; BMI 45.5
[2023-05-21] MEDS ORDERED: PROPOFOL 20 ML ONE (11:49)
[2023-05-21] MEDS ORDERED: KETAMINE HCL 100 MG/ML - 5ML VIAL ONE (11:59)
[2023-05-21 13:17] VITALS: TEMP 98.4
[2023-05-21 13:30] VITALS: BP 110/69; PULSE 92
== END 2023-05-21 13:31 | disposition home or self-care (01) ==
LOC: FECT 09:55
PROVIDERS: ATTEND Student in an Organized Health Care Education/Training Program
PROC: GZB4ZZZ Other Electroconvulsive Therapy (ICD-10-PCS; principal; 2023-05-21 12:15)
DX: F32.A Depression, unspecified (principal)
CPT/HCPCS: 81025; 90870; 94760

== ENCOUNTER 2023-05-28 09:24 | Day surgery (SDC) | payer OTHER ==
[2023-05-28 09:51] VITALS: BMI 45.2
[2023-05-28] MEDS ORDERED: KETAMINE HCL 100 MG/ML - 5ML VIAL ONE (10:12)
[2023-05-28 11:16] VITALS: RESP 19; TEMP 98
[2023-05-28 11:24] VITALS: BP 110/66; PULSE 82
== END 2023-05-28 11:39 | disposition home or self-care (01) ==
LOC: FECT 09:24
PROVIDERS: ATTEND Student in an Organized Health Care Education/Training Program
PROC: GZB4ZZZ Other Electroconvulsive Therapy (ICD-10-PCS; principal; 2023-05-28 10:26)
DX: F32.A Depression, unspecified (principal)
CPT/HCPCS: 81025; 90870; 93005; 93010; 94760

== ENCOUNTER 2023-06-04 08:56 | Day surgery (SDC) | payer OTHER ==
[2023-06-04 09:30] VITALS: BMI 45.3
[2023-06-04] MEDS ORDERED: KETAMINE HCL 100 MG/ML - 5ML VIAL ONE (09:42)
[2023-06-04 11:20] VITALS: BP 144/74; PULSE 76; RESP 16; TEMP 98.5
== END 2023-06-04 11:30 | disposition home or self-care (01) ==
LOC: FECT 08:56
PROVIDERS: ATTEND Student in an Organized Health Care Education/Training Program
PROC: GZB4ZZZ Other Electroconvulsive Therapy (ICD-10-PCS; principal; 2023-06-04 10:22)
DX: F33.2 Major depressive disorder, recurrent severe without psychotic features (principal)
CPT/HCPCS: 81025; 90870; 94760

== ENCOUNTER → 2023-06-11 | Day surgery (SDC) | payer OTHER ==
[2023-06-04 16:15] VITALS: BMI 45.3
[~2023-06-11] MED LIST changes: +ACETAMINOPHEN 325 MG TABLET (FP) PO ONE; +KETAMINE HCL 100 MG/ML - 5ML VIAL ONE; -LACTATED RINGERS SOLUTION 1,000 ML IV SCH; -ONDANSETRON 4 MG/2 ML VIAL IVPUSH PRN
[2023-06-11] MEDS: ACETAMINOPHEN 325 MG TABLET (FP) PO ONE (12:50)
[2023-06-11 12:56] VITALS: BP 114/45; PULSE 84; RESP 16; TEMP 97.9
== END | disposition home or self-care (01) ==
LOC: FECT 10:37
PROVIDERS: ATTEND Student in an Organized Health Care Education/Training Program
PROC: GZB4ZZZ Other Electroconvulsive Therapy (ICD-10-PCS; principal; 2023-06-11 12:07)
DX: F32.A Depression, unspecified (principal)
CPT/HCPCS: 81025; 90870; 94760

== ENCOUNTER 2023-06-18 10:34 | Day surgery (SDC) | payer OTHER ==
[2023-06-18 11:44] VITALS: BMI 44.9
[2023-06-18 13:21] VITALS: TEMP 97.2
[2023-06-18 13:45] VITALS: BP 120/64; PULSE 88; RESP 20
== END 2023-06-18 13:45 | disposition home or self-care (01) ==
LOC: FECT 10:34
PROVIDERS: ATTEND Student in an Organized Health Care Education/Training Program
PROC: GZB4ZZZ Other Electroconvulsive Therapy (ICD-10-PCS; principal; 2023-06-18 12:34)
DX: F32.A Depression, unspecified (principal)
CPT/HCPCS: 81025; 90870; 94760

== ENCOUNTER 2023-06-25 09:25 | Day surgery (SDC) | payer OTHER ==
[2023-06-25] MEDS ORDERED: KETAMINE HCL 100 MG/ML - 5ML VIAL ONE (11:35)
[2023-06-25 12:15] VITALS: BMI 43.9
[2023-06-25 12:30] VITALS: RESP 18; TEMP 97.4
[2023-06-25 12:57] VITALS: BP 122/71; PULSE 91
== END 2023-06-25 12:50 | disposition home or self-care (01) ==
LOC: FECT 09:25
PROVIDERS: ATTEND Psychiatry & Neurology Psychiatry
PROC: GZB4ZZZ Other Electroconvulsive Therapy (ICD-10-PCS; principal; 2023-06-25 11:45)
DX: F32.A Depression, unspecified (principal)
CPT/HCPCS: 81025; 90870; 94760

== ENCOUNTER 2023-07-02 09:24 | Day surgery (SDC) | payer OTHER ==
[2023-06-26 10:35] VITALS: BMI 43.9
[2023-07-02 12:20] VITALS: TEMP 98.3
[2023-07-02 12:57] VITALS: BP 104/80; PULSE 84; RESP 18
== END 2023-07-02 13:05 | disposition home or self-care (01) ==
LOC: FECT 09:24
PROVIDERS: ATTEND Student in an Organized Health Care Education/Training Program
PROC: GZB4ZZZ Other Electroconvulsive Therapy (ICD-10-PCS; principal; 2023-07-02 12:02)
DX: F32.A Depression, unspecified (principal)
CPT/HCPCS: 81025; 90870; 94760

== ENCOUNTER 2023-07-09 08:37 | Day surgery (SDC) | payer OTHER ==
[2023-07-09 09:39] VITALS: RESP 16; BMI 43.8
[2023-07-09] MEDS: ACETAMINOPHEN 500 MG TABLET (FP) PO ONE (11:30)
[2023-07-09 11:39] VITALS: TEMP 97.8
[2023-07-09 11:53] VITALS: BP 124/95; PULSE 88
[2023-07-09] MEDS ORDERED: ACETAMINOPHEN 1000 MG/100 ML BAG IVPB ONE (12:09)
[2023-07-09] MEDS ORDERED: ACETAMINOPHEN 500 MG TABLET (FP) PO ONE (12:22)
== END 2023-07-09 12:00 | disposition home or self-care (01) ==
LOC: FECT 08:37
PROVIDERS: ATTEND Student in an Organized Health Care Education/Training Program
PROC: GZB4ZZZ Other Electroconvulsive Therapy (ICD-10-PCS; principal; 2023-07-09 10:57)
DX: F32.A Depression, unspecified (principal)
CPT/HCPCS: 81025; 90870; 94760

== ENCOUNTER 2023-07-16 09:24 | Day surgery (SDC) | payer BC, OTHER ==
[2023-07-16] MEDS ORDERED: ONDANSETRON 4 MG/2 ML VIAL ONE (10:44)
[2023-07-16] MEDS ORDERED: PROPOFOL 20 ML ONE (10:44)
[2023-07-16] MEDS ORDERED: KETOROLAC TROMETHAMINE 30 MG/1 ML VIAL ONE (10:44)
[2023-07-16] MEDS ORDERED: SUCCINYLCHOLINE CHLORIDE 200 MG/10 ML SYRINGE ONE (10:44)
[2023-07-16] MEDS ORDERED: KETAMINE HCL 100 MG/ML - 5ML VIAL ONE (10:44)
[2023-07-16 11:40] VITALS: TEMP 97.8
[2023-07-16 11:44] VITALS: PULSE 96
[2023-07-16 12:07] VITALS: BP 130/64; RESP 18
== END 2023-07-16 12:08 | disposition home or self-care (01) ==
LOC: FECT 09:24
PROVIDERS: ATTEND Student in an Organized Health Care Education/Training Program
PROC: GZB4ZZZ Other Electroconvulsive Therapy (ICD-10-PCS; principal; 2023-07-16 10:52)
DX: F33.2 Major depressive disorder, recurrent severe without psychotic features (principal)
CPT/HCPCS: 81025; 90870; 94760

== ENCOUNTER 2023-07-23 09:31 | Day surgery (SDC) | payer OTHER ==
[2023-07-23 10:08] VITALS: BMI 45.3
[2023-07-23] MEDS ORDERED: KETAMINE HCL 100 MG/ML - 5ML VIAL ONE (11:11)
[2023-07-23] MEDS ORDERED: LIDOCAINE HCL/PF 2% SDV 5ML VIAL ONE ×2 (11:17)
[2023-07-23] MEDS ORDERED: METOPROLOL TARTRATE 5 MG/5 ML VIAL ONE (11:29)
[2023-07-23] MEDS ORDERED: PROMETHAZINE HCL 25 MG/1 ML VIAL IVPB PRN (12:10)
[2023-07-23] MEDS ORDERED: ACETAMINOPHEN 500 MG TABLET (FP) PO PRN (12:10)
[2023-07-23] MEDS ORDERED: LACTATED RINGERS SOLUTION 1,000 ML IV SCH (12:15)
[2023-07-23 12:32] VITALS: RESP 19; TEMP 97.6
[2023-07-23 12:34] VITALS: BP 130/76; PULSE 78
== END 2023-07-23 12:30 | disposition home or self-care (01) ==
LOC: FECT 09:31
PROVIDERS: ATTEND Student in an Organized Health Care Education/Training Program
PROC: GZB4ZZZ Other Electroconvulsive Therapy (ICD-10-PCS; principal; 2023-07-23 11:23)
DX: F32.A Depression, unspecified (principal)
CPT/HCPCS: 81025; 90870; 94760

== ENCOUNTER 2023-07-30 09:53 | Day surgery (SDC) | payer OTHER ==
[2023-07-30 10:12] VITALS: BMI 45.3
[2023-07-30 12:45] VITALS: RESP 18
[2023-07-30 12:55] VITALS: PULSE 78; TEMP 97.8
[2023-07-30 13:07] VITALS: BP 120/74
== END 2023-07-30 13:07 | disposition home or self-care (01) ==
LOC: FECT 09:53
PROVIDERS: ATTEND Student in an Organized Health Care Education/Training Program
PROC: GZB4ZZZ Other Electroconvulsive Therapy (ICD-10-PCS; principal; 2023-07-30 12:06)
DX: F32.A Depression, unspecified (principal)
CPT/HCPCS: 81025; 90870; 94760

== ENCOUNTER 2023-08-06 10:01 | Day surgery (SDC) | payer OTHER ==
[2023-08-06 10:48] VITALS: BMI 45.3
[2023-08-06] MEDS ORDERED: LACTATED RINGERS SOLUTION 1,000 ML IV SCH (11:00)
[2023-08-06 12:11] VITALS: RESP 16
[2023-08-06] MEDS: ACETAMINOPHEN 325 MG TABLET (FP) ONE (12:32)
[2023-08-06 13:20] VITALS: TEMP 97.7
[2023-08-06 13:25] VITALS: BP 140/81; PULSE 94
== END 2023-08-06 13:05 | disposition home or self-care (01) ==
LOC: FECT 10:01
PROVIDERS: ATTEND Student in an Organized Health Care Education/Training Program
PROC: GZB4ZZZ Other Electroconvulsive Therapy (ICD-10-PCS; principal; 2023-08-06 11:40)
DX: F32.A Depression, unspecified (principal)
CPT/HCPCS: 81025; 90870; 94760

== ENCOUNTER 2023-08-14 09:33 | Day surgery (SDC) | payer OTHER ==
[2023-08-14 09:57] VITALS: BMI 46.3
[2023-08-14 10:50] VITALS: TEMP 97.7
[2023-08-14 11:48] VITALS: BP 116/53; PULSE 71; RESP 18
== END 2023-08-14 11:40 | disposition home or self-care (01) ==
LOC: FECT 09:33
PROVIDERS: ATTEND Student in an Organized Health Care Education/Training Program
PROC: GZB4ZZZ Other Electroconvulsive Therapy (ICD-10-PCS; principal; 2023-08-14 10:33)
DX: F33.2 Major depressive disorder, recurrent severe without psychotic features (principal)
CPT/HCPCS: 81025; 90870; 94760

== ENCOUNTER 2023-08-17 15:53 | Emergency (ER) | payer BC, OTHER ==
[2023-08-17 16:24] VITALS: BP 111/71; PULSE 94; RESP 18; TEMP 98; BMI 44.6
[2023-08-17] MEDS ORDERED: ACETAMINOPHEN 325 MG TABLET (FP) ONE (17:33)
[2023-08-17] MEDS: ACETAMINOPHEN 500 MG TABLET (FP) PO ONE (17:45)
[2023-08-17] MEDS ORDERED: oxyCODONE HCL 5 MG TABLET ONE (18:03)
[2023-08-17] MEDS: oxyCODONE HCL 5 MG TABLET PO ONE (18:12)
== END 2023-08-17 18:24 | disposition home or self-care (01) ==
LOC: FER 15:53
DX: M25.562 Pain in left knee (principal); Y04.8XXA Assault by other bodily force, initial encounter
CPT/HCPCS: 73502-TC-LT-FY; 73552-TC-LT-FY; 73562-TC-LT-FY; 73590-TC-LT-FY; 84703; 93970-TC; 99285-25

== ENCOUNTER 2023-08-21 10:34 | Day surgery (SDC) | payer OTHER ==
[2023-08-21 14:14] VITALS: RESP 18; TEMP 97.2
[2023-08-21 14:43] VITALS: BP 112/64; PULSE 72
== END 2023-08-21 14:44 | disposition home or self-care (01) ==
LOC: FECT 10:34
PROVIDERS: ATTEND Student in an Organized Health Care Education/Training Program
PROC: GZB4ZZZ Other Electroconvulsive Therapy (ICD-10-PCS; principal; 2023-08-21 13:19)
DX: F32.A Depression, unspecified (principal)
CPT/HCPCS: 81025; 90870; 94760

== ENCOUNTER 2023-08-27 09:37 | Day surgery (SDC) | payer OTHER ==
[2023-08-27 10:20] VITALS: BMI 44.6
[2023-08-27 12:17] VITALS: RESP 18
[2023-08-27 12:22] VITALS: TEMP 97.5
[2023-08-27 12:38] VITALS: BP 122/69; PULSE 74
== END 2023-08-27 12:40 | disposition home or self-care (01) ==
LOC: FECT 09:37
PROVIDERS: ATTEND Student in an Organized Health Care Education/Training Program
PROC: GZB4ZZZ Other Electroconvulsive Therapy (ICD-10-PCS; principal; 2023-08-27 11:03)
DX: F32.A Depression, unspecified (principal)
CPT/HCPCS: 81025; 90870; 94760

== ENCOUNTER 2023-09-03 07:14 | Day surgery (SDC) | payer OTHER ==
[2023-09-03 07:37] VITALS: BMI 44.6
[2023-09-03 10:11] VITALS: RESP 20; TEMP 97.8
[2023-09-03 10:16] VITALS: BP 110/72; PULSE 68
== END 2023-09-03 09:45 | disposition home or self-care (01) ==
LOC: FECT 07:14
PROVIDERS: ATTEND Student in an Organized Health Care Education/Training Program
PROC: GZB4ZZZ Other Electroconvulsive Therapy (ICD-10-PCS; principal; 2023-09-03 08:26)
DX: F32.A Depression, unspecified (principal)
CPT/HCPCS: 81025; 90870; 94760

== ENCOUNTER 2023-09-09 07:11 | Day surgery (SDC) | payer OTHER ==
[2023-09-09] MEDS ORDERED: KETAMINE HCL 100 MG/ML - 5ML VIAL ONE (08:12)
[2023-09-09] MEDS ORDERED: PROPOFOL 20 ML ONE (08:19)
[2023-09-09] MEDS ORDERED: SUCCINYLCHOLINE CHLORIDE 200 MG/10 ML SYRINGE ONE (08:19)
[2023-09-09 09:22] VITALS: PULSE 96; RESP 20; TEMP 97.4
[2023-09-09 09:45] VITALS: BP 122/60
== END 2023-09-09 09:45 | disposition home or self-care (01) ==
LOC: FECT 07:11
PROVIDERS: ATTEND Student in an Organized Health Care Education/Training Program
PROC: GZB4ZZZ Other Electroconvulsive Therapy (ICD-10-PCS; principal; 2023-09-09 08:27)
DX: F33.2 Major depressive disorder, recurrent severe without psychotic features (principal)
CPT/HCPCS: 81025; 90870; 94760

== ENCOUNTER 2023-09-17 09:27 | Day surgery (SDC) | payer OTHER ==
[2023-09-17 09:47] VITALS: BMI 44.6
[2023-09-17] MEDS ORDERED: KETAMINE HCL 100 MG/ML - 5ML VIAL ONE (10:55)
[2023-09-17 11:49] VITALS: PULSE 81; RESP 18; TEMP 97.6
[2023-09-17 12:12] VITALS: BP 120/70
== END 2023-09-17 12:12 | disposition home or self-care (01) ==
LOC: FECT 09:27
PROVIDERS: ATTEND Student in an Organized Health Care Education/Training Program
PROC: GZB4ZZZ Other Electroconvulsive Therapy (ICD-10-PCS; principal; 2023-09-17 11:08)
DX: F32.A Depression, unspecified (principal)
CPT/HCPCS: 81025; 90870; 94760

== ENCOUNTER 2023-09-24 09:07 | Day surgery (SDC) | payer OTHER ==
[2023-09-18 16:05] VITALS: BMI 44.6
[2023-09-24 09:52] VITALS: RESP 16
[2023-09-24] MEDS ORDERED: KETAMINE HCL 100 MG/ML - 5ML VIAL ONE (11:37)
[2023-09-24 13:56] VITALS: BP 127/83; PULSE 84
[2023-09-24 15:44] VITALS: TEMP 98.9
== END 2023-09-24 13:25 | disposition home or self-care (01) ==
LOC: FECT 09:07
PROVIDERS: ATTEND Student in an Organized Health Care Education/Training Program
PROC: GZB4ZZZ Other Electroconvulsive Therapy (ICD-10-PCS; principal; 2023-09-24 11:51)
DX: F32.A Depression, unspecified (principal)
CPT/HCPCS: 81025; 90870; 94760

== ENCOUNTER 2023-10-01 08:49 | Day surgery (SDC) | payer OTHER ==
[2023-10-01 09:26] VITALS: TEMP 97.3; BMI 43.7
[2023-10-01] MEDS ORDERED: ACETAMINOPHEN 500 MG TABLET (FP) PO PRN (09:26)
[2023-10-01] MEDS ORDERED: PROMETHAZINE HCL 25 MG/1 ML VIAL IVPB PRN (09:26)
[2023-10-01] MEDS ORDERED: LACTATED RINGERS SOLUTION 1,000 ML IV SCH (09:30)
[2023-10-01] MEDS ORDERED: KETAMINE HCL 100 MG/ML - 5ML VIAL ONE (09:56)
[2023-10-01 11:37] VITALS: RESP 16
[2023-10-01 11:39] VITALS: BP 110/77; PULSE 86
== END 2023-10-01 11:35 | disposition home or self-care (01) ==
LOC: FECT 08:49
PROVIDERS: ATTEND Student in an Organized Health Care Education/Training Program
PROC: GZB4ZZZ Other Electroconvulsive Therapy (ICD-10-PCS; principal; 2023-10-01 10:17)
DX: F32.A Depression, unspecified (principal)
CPT/HCPCS: 81025; 90870; 94760

== ENCOUNTER 2023-10-06 11:58 | Day surgery (SDC) | payer OTHER ==
[2023-10-06 12:37] VITALS: BMI 43.7
[2023-10-06] MEDS ORDERED: KETAMINE HCL 100 MG/ML - 5ML VIAL ONE (13:48)
[2023-10-06 14:57] VITALS: RESP 18; TEMP 97.8
[2023-10-06 15:18] VITALS: BP 145/76; PULSE 82
== END 2023-10-06 15:20 | disposition home or self-care (01) ==
LOC: FECT 11:58
PROVIDERS: ATTEND Psychiatry & Neurology Psychiatry
PROC: GZB4ZZZ Other Electroconvulsive Therapy (ICD-10-PCS; principal; 2023-10-06 14:08)
DX: F32.A Depression, unspecified (principal)
CPT/HCPCS: 81025; 90870; 94760

== ENCOUNTER 2023-10-29 08:23 | Day surgery (SDC) | payer OTHER ==
[2023-10-09 14:15] VITALS: BMI 43.7
[2023-10-29] MEDS ORDERED: KETAMINE HCL 100 MG/ML - 5ML VIAL ONE (10:37)
[2023-10-29 11:55] VITALS: PULSE 83; RESP 20; TEMP 97.5
[2023-10-29 12:05] VITALS: BP 116/50
== END 2023-10-29 12:00 | disposition home or self-care (01) ==
LOC: FECT 08:23
PROVIDERS: ATTEND Psychiatry & Neurology Psychiatry
PROC: GZB4ZZZ Other Electroconvulsive Therapy (ICD-10-PCS; principal; 2023-10-29 10:30)
DX: F32.A Depression, unspecified (principal)
CPT/HCPCS: 81025; 90870; 94760

== ENCOUNTER 2023-11-05 08:31 | Day surgery (SDC) | payer OTHER ==
[2023-11-05 09:11] VITALS: BMI 42.8
[2023-11-05] MEDS ORDERED: KETAMINE HCL 100 MG/ML - 5ML VIAL ONE (09:53)
[2023-11-05] MEDS ORDERED: DEXAMETHASONE SOD PHOSPHATE 4 MG/1 ML VIAL ONE (10:03)
[2023-11-05] MEDS ORDERED: KETOROLAC TROMETHAMINE 30 MG/1 ML VIAL ONE (10:03)
[2023-11-05] MEDS ORDERED: ONDANSETRON 4 MG/2 ML VIAL ONE (10:03)
[2023-11-05 10:47] VITALS: RESP 16; TEMP 97.7
[2023-11-05 11:29] VITALS: BP 110/69; PULSE 84
== END 2023-11-05 11:30 | disposition home or self-care (01) ==
LOC: FECT 08:31
PROVIDERS: ATTEND Psychiatry & Neurology Psychiatry
PROC: GZB4ZZZ Other Electroconvulsive Therapy (ICD-10-PCS; principal; 2023-11-05 10:01)
DX: F32.A Depression, unspecified (principal)
CPT/HCPCS: 81025; 90870; 94760

== ENCOUNTER 2023-11-13 07:02 | Day surgery (SDC) | payer OTHER ==
[2023-11-05 13:35] VITALS: BMI 42.7
[2023-11-13] MEDS ORDERED: KETAMINE HCL 100 MG/ML - 5ML VIAL ONE (08:24)
[2023-11-13] MEDS ORDERED: DEXAMETHASONE SOD PHOSPHATE 4 MG/1 ML VIAL ONE (08:37)
[2023-11-13] MEDS ORDERED: ONDANSETRON 4 MG/2 ML VIAL ONE (08:37)
[2023-11-13] MEDS ORDERED: KETOROLAC TROMETHAMINE 30 MG/1 ML VIAL ONE (08:37)
[2023-11-13 09:12] VITALS: RESP 16
[2023-11-13 09:39] VITALS: TEMP 97.6
[2023-11-13 09:41] VITALS: BP 120/74; PULSE 80
== END 2023-11-13 09:41 | disposition home or self-care (01) ==
LOC: FECT 07:02
PROVIDERS: ATTEND Student in an Organized Health Care Education/Training Program
PROC: GZB4ZZZ Other Electroconvulsive Therapy (ICD-10-PCS; principal; 2023-11-13 08:35)
DX: F32.A Depression, unspecified (principal)
CPT/HCPCS: 81025; 90870; 94760

== ENCOUNTER 2023-11-20 10:56 | Day surgery (SDC) | payer OTHER ==
[2023-11-13 15:47] VITALS: BMI 42.7
[2023-11-20] MEDS ORDERED: KETAMINE HCL 100 MG/ML - 5ML VIAL ONE (11:40)
[2023-11-20 13:53] VITALS: RESP 16; TEMP 97.6
[2023-11-20 13:58] VITALS: BP 112/68; PULSE 78
== END 2023-11-20 13:45 | disposition home or self-care (01) ==
LOC: FECT 10:56
PROVIDERS: ATTEND Student in an Organized Health Care Education/Training Program
PROC: GZB4ZZZ Other Electroconvulsive Therapy (ICD-10-PCS; principal; 2023-11-20 12:31)
DX: F32.A Depression, unspecified (principal)
CPT/HCPCS: 81025; 90870; 94760

== ENCOUNTER 2023-11-27 07:00 | Day surgery (SDC) | payer OTHER ==
[2023-11-27 07:44] VITALS: RESP 16; BMI 45.2
[2023-11-27] MEDS ORDERED: KETAMINE HCL 100 MG/ML - 5ML VIAL ONE ×2 (08:20→08:50)
[2023-11-27] MEDS ORDERED: SUCCINYLCHOLINE CHLORIDE 200 MG/10 ML SYRINGE ONE (08:50)
[2023-11-27] MEDS ORDERED: PROPOFOL 20 ML ONE (08:50)
[2023-11-27 10:01] VITALS: PULSE 88; TEMP 97.8
[2023-11-27 10:15] VITALS: BP 138/82
== END 2023-11-27 10:16 | disposition home or self-care (01) ==
LOC: FECT 07:00
PROVIDERS: ATTEND Student in an Organized Health Care Education/Training Program
PROC: GZB4ZZZ Other Electroconvulsive Therapy (ICD-10-PCS; principal; 2023-11-27 08:53)
DX: F32.A Depression, unspecified (principal)
CPT/HCPCS: 81025; 90870; 94760

== ENCOUNTER 2023-12-17 07:58 | Day surgery (SDC) | payer OTHER ==
[2023-12-17 08:55] VITALS: BMI 41.9
[2023-12-17] MEDS ORDERED: KETAMINE HCL 100 MG/ML - 5ML VIAL ONE (09:34)
[2023-12-17 10:47] VITALS: TEMP 97.2
[2023-12-17 11:16] VITALS: BP 114/61; PULSE 76; RESP 16
== END 2023-12-17 11:18 | disposition home or self-care (01) ==
LOC: FECT 07:58
PROVIDERS: ATTEND Student in an Organized Health Care Education/Training Program
PROC: GZB4ZZZ Other Electroconvulsive Therapy (ICD-10-PCS; principal; 2023-12-17 10:08)
DX: F32.A Depression, unspecified (principal)
CPT/HCPCS: 81025; 90870; 93005; 93010; 94760

== ENCOUNTER 2023-12-24 09:28 | Day surgery (SDC) | payer OTHER ==
[2023-12-24 10:14] VITALS: BMI 40.4
[2023-12-24] MEDS ORDERED: ONDANSETRON 4 MG/2 ML VIAL ONE (11:28)
[2023-12-24] MEDS ORDERED: KETAMINE HCL 100 MG/ML - 5ML VIAL ONE (11:28)
[2023-12-24] MEDS ORDERED: DEXAMETHASONE SOD PHOSPHATE 4 MG/1 ML VIAL ONE (11:28)
[2023-12-24] MEDS ORDERED: KETOROLAC TROMETHAMINE 30 MG/1 ML VIAL ONE (11:28)
[2023-12-24] MEDS ORDERED: PROPOFOL 20 ML ONE (11:32)
[2023-12-24] MEDS ORDERED: SUCCINYLCHOLINE CHLORIDE 200 MG/10 ML SYRINGE ONE (11:37)
[2023-12-24 12:51] VITALS: RESP 19; TEMP 98.4
[2023-12-24 12:54] VITALS: BP 117/69; PULSE 85
== END 2023-12-24 12:55 | disposition home or self-care (01) ==
LOC: FECT 09:28
PROVIDERS: ATTEND Student in an Organized Health Care Education/Training Program
PROC: GZB4ZZZ Other Electroconvulsive Therapy (ICD-10-PCS; principal; 2023-12-24 11:43)
DX: F32.A Depression, unspecified (principal)
CPT/HCPCS: 81025; 90870; 94760

== ENCOUNTER 2023-12-31 08:05 | Day surgery (SDC) | payer OTHER ==
[2023-12-25 17:08] VITALS: BMI 40.3
[2023-12-31] MEDS ORDERED: KETAMINE HCL 100 MG/ML - 5ML VIAL ONE (09:38)
[2023-12-31] MEDS ORDERED: SUCCINYLCHOLINE CHLORIDE 200 MG/10 ML SYRINGE ONE (09:38)
[2023-12-31] MEDS ORDERED: LIDOCAINE HCL/PF 2% SDV 5ML VIAL ONE (09:43)
[2023-12-31] MEDS ORDERED: PROPOFOL 20 ML ONE (09:43)
[2023-12-31 10:47] VITALS: TEMP 97.1
[2023-12-31 11:17] VITALS: BP 138/67; PULSE 72; RESP 20
[2023-12-31 12:41] LABS: BILIRUBIN,TOTAL 0.4 mg/dl (0.2-1); CALCIUM 9.6 mg/dl (8.5-10.1); CREATININE 0.8 mg/dl (0.6-1.3); POTASSIUM 4.2 mmol/L (3.5-5.1)
[2023-12-31 14:37] LABS: BASO % 0.8 % (0-2.0); EOS % 1.6 % (0-4.5); HEMATOCRIT 39.4 % (32.4-45.2); HEMOGLOBIN 13.1 GM/dL (10.7-15.3); LYMPH % 35.2 % (8-40); MCH 29.8 pg (25.7-33.7); MCHC 33.1 g/dl (32.0-36.0); MEAN CELL VOLUME 89.9 fl (80-96); MEAN PLT VOLUME 10.7 fl (7.5-11.1); MONO % 5.6 % (3.8-10.2); NEUT % 56.8 % (42.8-82.8); PLATELET COUNT 217 10^3/uL (134-434); RBC 4.39 M/mm3 (3.60-5.2); RDW 14.1 % (11.6-15.6); WHITE BLOOD COUNT 4.7 K/mm3 (4.0-10.0)
== END 2023-12-31 11:19 | disposition home or self-care (01) ==
LOC: FECT 08:05
PROVIDERS: ATTEND Student in an Organized Health Care Education/Training Program
PROC: GZB4ZZZ Other Electroconvulsive Therapy (ICD-10-PCS; principal; 2023-12-31 09:52)
DX: F32.A Depression, unspecified (principal)
CPT/HCPCS: 36415; 80053; 81025; 85025; 90870; 94760

== ENCOUNTER 2024-01-07 07:24 | Day surgery (SDC) | payer OTHER ==
[2024-01-07 07:48] VITALS: BMI 40.8
[2024-01-07] MEDS ORDERED: KETOROLAC TROMETHAMINE 30 MG/1 ML VIAL ONE (09:16)
[2024-01-07] MEDS ORDERED: KETAMINE HCL 100 MG/ML - 5ML VIAL ONE (09:16)
[2024-01-07] MEDS ORDERED: PROPOFOL 20 ML ONE (09:16)
[2024-01-07 10:18] VITALS: PULSE 78; RESP 18; TEMP 97.4
[2024-01-07 11:04] VITALS: BP 110/69
== END 2024-01-07 10:40 | disposition home or self-care (01) ==
LOC: FECT 07:24
PROVIDERS: ATTEND Student in an Organized Health Care Education/Training Program
PROC: GZB4ZZZ Other Electroconvulsive Therapy (ICD-10-PCS; principal; 2024-01-07 09:23)
DX: F32.A Depression, unspecified (principal)
CPT/HCPCS: 81025; 90870; 94760

== ENCOUNTER 2024-01-14 08:56 | Day surgery (SDC) | payer OTHER ==
[2024-01-14 09:36] VITALS: BMI 40.5
[2024-01-14] MEDS ORDERED: SUCCINYLCHOLINE CHLORIDE 200 MG/10 ML SYRINGE ONE (10:27)
[2024-01-14] MEDS ORDERED: KETAMINE HCL 100 MG/ML - 5ML VIAL ONE (10:27)
[2024-01-14] MEDS ORDERED: PROPOFOL 20 ML ONE (10:27)
[2024-01-14] MEDS ORDERED: KETOROLAC TROMETHAMINE 30 MG/1 ML VIAL ONE (10:27)
[2024-01-14] MEDS ORDERED: ONDANSETRON 4 MG/2 ML VIAL ONE (10:27)
[2024-01-14 11:26] VITALS: RESP 16
[2024-01-14 11:38] VITALS: PULSE 74; TEMP 98.2
[2024-01-14 11:59] VITALS: BP 115/92
== END 2024-01-14 11:55 | disposition home or self-care (01) ==
LOC: FECT 08:56
PROVIDERS: ATTEND Student in an Organized Health Care Education/Training Program
PROC: GZB4ZZZ Other Electroconvulsive Therapy (ICD-10-PCS; principal; 2024-01-14 10:34)
DX: F32.A Depression, unspecified (principal)
CPT/HCPCS: 81025; 90870; 94760

== ENCOUNTER 2024-01-21 09:59 | Day surgery (SDC) | payer OTHER ==
[2024-01-21 10:25] VITALS: BMI 39.8
[2024-01-21] MEDS ORDERED: KETAMINE HCL 100 MG/ML - 5ML VIAL ONE (11:16)
[2024-01-21 13:13] VITALS: TEMP 97.2
[2024-01-21 13:45] VITALS: BP 112/68; PULSE 71; RESP 16
== END 2024-01-21 13:35 | disposition home or self-care (01) ==
LOC: FECT 09:59
PROVIDERS: ATTEND Student in an Organized Health Care Education/Training Program
PROC: GZB4ZZZ Other Electroconvulsive Therapy (ICD-10-PCS; principal; 2024-01-21 12:20)
DX: F33.2 Major depressive disorder, recurrent severe without psychotic features (principal)
CPT/HCPCS: 81025; 90870; 94760

== ENCOUNTER 2024-01-28 09:14 | Day surgery (SDC) | payer OTHER ==
[2024-01-28 09:49] VITALS: PULSE 72; RESP 16; BMI 37.3
[2024-01-28] MEDS ORDERED: KETAMINE HCL 100 MG/ML - 5ML VIAL ONE (10:39)
[2024-01-28 12:11] VITALS: BP 110/66; TEMP 97.6
== END 2024-01-28 12:20 | disposition home or self-care (01) ==
LOC: FECT 09:14
PROVIDERS: ATTEND Student in an Organized Health Care Education/Training Program
PROC: GZB4ZZZ Other Electroconvulsive Therapy (ICD-10-PCS; principal; 2024-01-28 11:16)
DX: F32.A Depression, unspecified (principal)
CPT/HCPCS: 81025; 90870; 94760

== ENCOUNTER 2024-02-11 08:40 | Day surgery (SDC) | payer OTHER ==
[2024-02-11 09:28] VITALS: BMI 38.9
[2024-02-11] MEDS ORDERED: KETAMINE HCL 100 MG/ML - 5ML VIAL ONE (09:44)
[2024-02-11 12:19] VITALS: RESP 17
[2024-02-11 12:21] VITALS: TEMP 98
[2024-02-11 12:24] VITALS: BP 116/60; PULSE 70
== END 2024-02-11 11:45 | disposition home or self-care (01) ==
LOC: FECT 08:40
PROVIDERS: ATTEND Student in an Organized Health Care Education/Training Program
PROC: GZB4ZZZ Other Electroconvulsive Therapy (ICD-10-PCS; principal; 2024-02-11 10:20)
DX: F32.A Depression, unspecified (principal)
CPT/HCPCS: 81025; 90870; 94760

== ENCOUNTER 2024-02-18 09:59 | Day surgery (SDC) | payer OTHER ==
[2024-02-18 10:36] VITALS: BMI 38.5
[2024-02-18 13:03] VITALS: RESP 16; TEMP 98.7
[2024-02-18 13:09] VITALS: BP 116/79; PULSE 76
== END 2024-02-18 13:05 | disposition home or self-care (01) ==
LOC: FECT 09:59
PROVIDERS: ATTEND Student in an Organized Health Care Education/Training Program
PROC: GZB4ZZZ Other Electroconvulsive Therapy (ICD-10-PCS; principal; 2024-02-18 11:50)
DX: F33.2 Major depressive disorder, recurrent severe without psychotic features (principal)
CPT/HCPCS: 81025; 90870; 94760

== ENCOUNTER 2024-02-26 10:57 | Day surgery (SDC) | payer OTHER ==
[2024-02-18 15:48] VITALS: BMI 38.4
[2024-02-26] MEDS ORDERED: KETOROLAC TROMETHAMINE 30 MG/1 ML VIAL ONE (12:43)
[2024-02-26] MEDS ORDERED: ONDANSETRON 4 MG/2 ML VIAL ONE (12:43)
[2024-02-26] MEDS ORDERED: PROPOFOL 20 ML ONE (12:43)
[2024-02-26] MEDS ORDERED: SUCCINYLCHOLINE CHLORIDE 200 MG/10 ML SYRINGE ONE (12:43)
[2024-02-26 13:17] VITALS: RESP 20
[2024-02-26 14:12] VITALS: BP 104/68; PULSE 85; TEMP 97.5
== END 2024-02-26 14:05 | disposition home or self-care (01) ==
LOC: FECT 10:57
PROVIDERS: ATTEND Student in an Organized Health Care Education/Training Program
PROC: GZB4ZZZ Other Electroconvulsive Therapy (ICD-10-PCS; principal; 2024-02-26 12:52)
DX: F33.2 Major depressive disorder, recurrent severe without psychotic features (principal)
CPT/HCPCS: 81025; 90870; 94760

== ENCOUNTER 2024-03-04 07:55 | Day surgery (SDC) | payer OTHER ==
[2024-03-04 08:17] VITALS: BMI 38.1
[2024-03-04 10:12] VITALS: RESP 18; TEMP 97.3
[2024-03-04 10:47] VITALS: BP 119/64; PULSE 71
== END 2024-03-04 10:50 | disposition home or self-care (01) ==
LOC: FECT 07:55
PROVIDERS: ATTEND Student in an Organized Health Care Education/Training Program
PROC: GZB4ZZZ Other Electroconvulsive Therapy (ICD-10-PCS; principal; 2024-03-04 09:18)
DX: F33.2 Major depressive disorder, recurrent severe without psychotic features (principal)
CPT/HCPCS: 81025; 90870; 94760

== ENCOUNTER 2024-03-11 06:26 | Day surgery (SDC) | payer OTHER ==
[2024-03-11 07:12] VITALS: BMI 37.5
[2024-03-11] MEDS ORDERED: KETAMINE HCL 100 MG/ML - 5ML VIAL ONE (07:28)
[2024-03-11 09:21] VITALS: RESP 16; TEMP 97.7
[2024-03-11 09:24] VITALS: BP 121/55; PULSE 70
== END 2024-03-11 09:10 | disposition home or self-care (01) ==
LOC: FECT 06:26
PROVIDERS: ATTEND Student in an Organized Health Care Education/Training Program
PROC: GZB4ZZZ Other Electroconvulsive Therapy (ICD-10-PCS; principal; 2024-03-11 07:52)
DX: F33.2 Major depressive disorder, recurrent severe without psychotic features (principal)
CPT/HCPCS: 81025; 90870; 94760

== ENCOUNTER 2024-03-18 09:30 | Day surgery (SDC) | payer OTHER ==
[2024-03-14 13:57] VITALS: BMI 37.4
[2024-03-18 11:44] VITALS: BP 107/70; PULSE 77; RESP 19; TEMP 97.3
== END 2024-03-18 11:54 | disposition home or self-care (01) ==
LOC: FECT 09:30
PROVIDERS: ATTEND Student in an Organized Health Care Education/Training Program
PROC: GZB4ZZZ Other Electroconvulsive Therapy (ICD-10-PCS; principal; 2024-03-18 10:17)
DX: F33.2 Major depressive disorder, recurrent severe without psychotic features (principal)
CPT/HCPCS: 81025; 90870; 94760

== ENCOUNTER 2024-04-05 09:45 | Day surgery (SDC) | payer OTHER ==
[2024-04-05 10:19] VITALS: BMI 37.0
[2024-04-05] MEDS ORDERED: KETAMINE HCL 100 MG/ML - 5ML VIAL ONE (10:57)
[2024-04-05 11:46] VITALS: RESP 18; TEMP 98.9
[2024-04-05 12:14] VITALS: BP 116/64; PULSE 69
== END 2024-04-05 12:18 | disposition home or self-care (01) ==
LOC: FECT 09:45
PROVIDERS: ATTEND Student in an Organized Health Care Education/Training Program
PROC: GZB4ZZZ Other Electroconvulsive Therapy (ICD-10-PCS; principal; 2024-04-05 11:06)
DX: F32.A Depression, unspecified (principal)
CPT/HCPCS: 81025; 90870; 94760

== ENCOUNTER 2024-04-22 07:34 | Day surgery (SDC) | payer OTHER ==
[2024-04-22 08:12] VITALS: BMI 36.2
[2024-04-22] MEDS ORDERED: ACETAMINOPHEN/CAFFEINE/BUTALBITAL 1 TAB ONE (08:15)
[2024-04-22 09:26] VITALS: TEMP 98
[2024-04-22] MEDS: ACETAMINOPHEN/CAFFEINE/BUTALBITAL 1 TAB PO PRN (09:35)
[2024-04-22 10:11] VITALS: BP 116/64; PULSE 74; RESP 18
== END 2024-04-22 10:13 | disposition home or self-care (01) ==
LOC: FECT 07:34
PROVIDERS: ATTEND Student in an Organized Health Care Education/Training Program
PROC: GZB4ZZZ Other Electroconvulsive Therapy (ICD-10-PCS; principal; 2024-04-22 09:06)
DX: F33.2 Major depressive disorder, recurrent severe without psychotic features (principal)
CPT/HCPCS: 81025; 90870; 94760

== ENCOUNTER 2024-05-06 10:35 | Day surgery (SDC) | payer OTHER ==
[2024-05-06 11:08] VITALS: BMI 36.2
[2024-05-06] MEDS ORDERED: KETAMINE HCL 100 MG/ML - 5ML VIAL ONE (11:28)
[2024-05-06 12:23] VITALS: BP 132/70; PULSE 74; RESP 18; TEMP 97.4
[2024-05-06] MEDS: ACETAMINOPHEN/CAFFEINE/BUTALBITAL 1 TAB PO ONE (12:55)
== END 2024-05-06 13:05 | disposition home or self-care (01) ==
LOC: FECT 10:35
PROVIDERS: ATTEND Psychiatry & Neurology Psychiatry
PROC: GZB4ZZZ Other Electroconvulsive Therapy (ICD-10-PCS; principal; 2024-05-06 11:42)
DX: F33.2 Major depressive disorder, recurrent severe without psychotic features (principal)
CPT/HCPCS: 81025; 90870; 94760

== ENCOUNTER 2024-05-20 06:56 | Day surgery (SDC) | payer OTHER ==
[2024-05-20 07:19] VITALS: BMI 36.6
[2024-05-20] MEDS ORDERED: KETAMINE HCL 100 MG/ML - 5ML VIAL ONE (07:55)
[2024-05-20 09:11] VITALS: RESP 16
[2024-05-20] MEDS ORDERED: ACETAMINOPHEN/CAFFEINE/BUTALBITAL 1 TAB ONE (09:24)
[2024-05-20 09:27] VITALS: PULSE 90; TEMP 97.6
[2024-05-20] MEDS: ACETAMINOPHEN/CAFFEINE/BUTALBITAL 1 TAB PO ONE (09:30)
[2024-05-20 10:01] VITALS: BP 133/50
== END 2024-05-20 10:02 | disposition home or self-care (01) ==
LOC: FECT 06:56
PROVIDERS: ATTEND Student in an Organized Health Care Education/Training Program
PROC: GZB4ZZZ Other Electroconvulsive Therapy (ICD-10-PCS; principal; 2024-05-20 08:37)
DX: F32.A Depression, unspecified (principal)
CPT/HCPCS: 81025; 90870; 94760

== ENCOUNTER 2024-05-26 08:30 | Day surgery (SDC) | payer OTHER ==
[2024-05-26 09:02] VITALS: BMI 36.5
[2024-05-26] MEDS ORDERED: KETAMINE HCL 100 MG/ML - 5ML VIAL ONE (12:08)
[2024-05-26] MEDS ORDERED: PROPOFOL 20 ML ONE (12:17)
[2024-05-26] MEDS ORDERED: DEXAMETHASONE SOD PHOSPHATE 4 MG/1 ML VIAL ONE (12:18)
[2024-05-26] MEDS ORDERED: ONDANSETRON 4 MG/2 ML VIAL ONE (12:18)
[2024-05-26] MEDS ORDERED: KETOROLAC TROMETHAMINE 30 MG/1 ML VIAL ONE (12:18)
[2024-05-26 13:19] VITALS: RESP 16; TEMP 98.3
[2024-05-26] MEDS: ACETAMINOPHEN/CAFFEINE/BUTALBITAL 1 TAB ONE (13:35)
[2024-05-26 13:41] VITALS: PULSE 78
[2024-05-26 13:47] VITALS: BP 140/59
[2024-05-26] MEDS ORDERED: ACETAMINOPHEN/CAFFEINE/BUTALBITAL 1 TAB PO ONE (14:20)
== END 2024-05-26 13:37 | disposition home or self-care (01) ==
LOC: FECT 08:30
PROVIDERS: ATTEND Student in an Organized Health Care Education/Training Program
PROC: GZB4ZZZ Other Electroconvulsive Therapy (ICD-10-PCS; principal; 2024-05-26 12:24)
DX: F32.A Depression, unspecified (principal)
CPT/HCPCS: 81025; 90870; 94760

== ENCOUNTER 2024-06-03 10:06 | Day surgery (SDC) | payer OTHER ==
[2024-05-30 14:12] VITALS: BMI 36.5
[2024-06-03] MEDS ORDERED: KETAMINE HCL 200 MG/20 ML VIAL ONE (12:01)
[2024-06-03 12:59] VITALS: RESP 18
[2024-06-03 13:02] VITALS: TEMP 98.4
[2024-06-03 13:18] VITALS: BP 108/61; PULSE 76
== END 2024-06-03 13:20 | disposition home or self-care (01) ==
LOC: FECT 10:06
PROVIDERS: ATTEND Psychiatry & Neurology Psychiatry
PROC: GZB4ZZZ Other Electroconvulsive Therapy (ICD-10-PCS; principal; 2024-06-03 12:04)
DX: F32.A Depression, unspecified (principal)
CPT/HCPCS: 81025; 90870; 94760

== ENCOUNTER 2024-06-17 06:53 | Day surgery (SDC) | payer OTHER ==
[2024-06-17 07:28] VITALS: BMI 36.2
[2024-06-17] MEDS ORDERED: KETAMINE HCL 100 MG/ML - 5ML VIAL ONE (08:20)
[2024-06-17] MEDS ORDERED: ACETAMINOPHEN/CAFFEINE/BUTALBITAL 1 TAB ONE (09:00)
[2024-06-17] MEDS: ACETAMINOPHEN/CAFFEINE/BUTALBITAL 1 TAB PO ONE (09:15)
[2024-06-17 09:18] VITALS: TEMP 98.7
[2024-06-17 09:35] VITALS: RESP 18
[2024-06-17 10:22] VITALS: BP 118/70; PULSE 68
== END 2024-06-17 10:05 | disposition home or self-care (01) ==
LOC: FECT 06:53
PROVIDERS: ATTEND Psychiatry & Neurology Psychiatry
PROC: GZB4ZZZ Other Electroconvulsive Therapy (ICD-10-PCS; principal; 2024-06-17 08:41)
DX: F32.A Depression, unspecified (principal)
CPT/HCPCS: 81025; 90870; 93005; 93010; 94760

== ENCOUNTER 2024-07-05 08:30 | Day surgery (SDC) | payer OTHER ==
[2024-07-05 09:19] VITALS: BMI 35.4
[2024-07-05] MEDS ORDERED: KETAMINE HCL 100 MG/ML - 5ML VIAL ONE (10:05)
[2024-07-05 11:16] VITALS: RESP 18
[2024-07-05] MEDS ORDERED: ACETAMINOPHEN/CAFFEINE/BUTALBITAL 1 TAB ONE (11:24)
[2024-07-05] MEDS: ACETAMINOPHEN/CAFFEINE/BUTALBITAL 1 TAB PO ONE (11:27)
[2024-07-05 11:29] VITALS: TEMP 97.8
[2024-07-05 11:53] VITALS: BP 116/72; PULSE 73
== END 2024-07-05 11:55 | disposition home or self-care (01) ==
LOC: FECT 08:30
PROVIDERS: ATTEND Student in an Organized Health Care Education/Training Program
PROC: GZB4ZZZ Other Electroconvulsive Therapy (ICD-10-PCS; principal; 2024-07-05 10:40)
DX: F32.A Depression, unspecified (principal)
CPT/HCPCS: 81025; 90870; 94760

== ENCOUNTER 2024-07-26 06:29 | Day surgery (SDC) | payer OTHER ==
[2024-07-26 06:55] VITALS: RESP 18; BMI 35.3
[2024-07-26] MEDS ORDERED: KETAMINE HCL 100 MG/ML - 5ML VIAL ONE (08:05)
[2024-07-26] MEDS ORDERED: ACETAMINOPHEN 1000 MG/100 ML BAG IVPB ONE (08:26)
[2024-07-26 09:09] VITALS: TEMP 97.9
[2024-07-26 09:45] VITALS: BP 114/73; PULSE 71
== END 2024-07-26 09:47 | disposition home or self-care (01) ==
LOC: FECT 06:29
PROVIDERS: ATTEND Student in an Organized Health Care Education/Training Program
PROC: GZB4ZZZ Other Electroconvulsive Therapy (ICD-10-PCS; principal; 2024-07-26 08:16)
DX: F32.A Depression, unspecified (principal)
CPT/HCPCS: 81025; 90870; 94760

== ENCOUNTER 2024-08-30 10:03 | Day surgery (SDC) | payer OTHER ==
[2024-08-22 17:07] VITALS: BMI 34.7
[2024-08-30] MEDS ORDERED: KETAMINE HCL 100 MG/ML - 5ML VIAL ONE (11:02)
[2024-08-30 12:47] VITALS: TEMP 97.5
[2024-08-30 12:53] VITALS: BP 118/51; PULSE 57; RESP 18
== END 2024-08-30 12:50 | disposition home or self-care (01) ==
LOC: FECT 10:03
PROVIDERS: ATTEND Student in an Organized Health Care Education/Training Program
PROC: GZB4ZZZ Other Electroconvulsive Therapy (ICD-10-PCS; principal; 2024-08-30 11:24)
DX: F32.A Depression, unspecified (principal)
CPT/HCPCS: 81025; 90870; 94760

== ENCOUNTER 2024-09-08 09:19 | Day surgery (SDC) | payer OTHER ==
[2024-09-08 09:47] VITALS: RESP 16; BMI 34.4
[2024-09-08] MEDS ORDERED: KETAMINE HCL 100 MG/ML - 5ML VIAL ONE (11:05)
[2024-09-08 13:10] VITALS: TEMP 97.9
[2024-09-08 13:20] VITALS: BP 115/59; PULSE 72
== END 2024-09-08 13:00 | disposition home or self-care (01) ==
LOC: FECT 09:19
PROVIDERS: ATTEND Student in an Organized Health Care Education/Training Program
PROC: GZB4ZZZ Other Electroconvulsive Therapy (ICD-10-PCS; principal; 2024-09-08 11:23)
DX: F32.A Depression, unspecified (principal)
CPT/HCPCS: 81025; 90870; 94760

== ENCOUNTER 2024-10-23 13:53 | Emergency (ER) | payer OTHER ==
[2024-10-23 14:18] VITALS: BP 124/63; PULSE 89; RESP 16; TEMP 98.8; BMI 34.8
[2024-10-23] MEDS ORDERED: IBUPROFEN 400 MG TABLET (FP) PO ONE (15:51)
[2024-10-23] MEDS: IBUPROFEN 400 MG TABLET (FP) PO ONE (15:53)
== END 2024-10-23 16:41 | disposition home or self-care (01) ==
LOC: FER 13:53
DX: I80.8 Phlebitis and thrombophlebitis of other sites (principal); M79.641 Pain in right hand; M79.631 Pain in right forearm; M79.621 Pain in right upper arm; M25.511 Pain in right shoulder; R23.3 Spontaneous ecchymoses
CPT/HCPCS: 76882-TC-RT; 99284-25

== ENCOUNTER 2024-11-04 07:02 | Day surgery (SDC) | payer OTHER ==
[2024-11-04 07:38] VITALS: BMI 34.8
[2024-11-04] MEDS ORDERED: KETAMINE HCL 100 MG/ML - 5ML VIAL ONE (08:13)
[2024-11-04] MEDS ORDERED: ACETAMINOPHEN INJECTION 100 ML ONE (08:51)
[2024-11-04] MEDS: ACETAMINOPHEN 1000 MG/100 ML BAG IVPB ONE (08:52)
[2024-11-04 09:06] VITALS: TEMP 97.1
[2024-11-04 09:54] VITALS: PULSE 75; RESP 20
[2024-11-04 10:23] VITALS: BP 110/78
== END 2024-11-04 10:05 | disposition home or self-care (01) ==
LOC: FECT 07:02
PROVIDERS: ATTEND Student in an Organized Health Care Education/Training Program
PROC: GZB4ZZZ Other Electroconvulsive Therapy (ICD-10-PCS; principal; 2024-11-04 08:37)
DX: F33.2 Major depressive disorder, recurrent severe without psychotic features (principal)
CPT/HCPCS: 81025; 90870; 94760

== ENCOUNTER 2024-11-24 06:10 | Day surgery (SDC) | payer OTHER ==
[2024-11-24] MEDS ORDERED: MIDAZOLAM HCL 2 MG/2 ML SINGLE DOSE VIAL ONE (13:55)
[2024-11-24] MEDS ORDERED: PROPOFOL 20 ML ONE (13:55)
[2024-11-24] MEDS ORDERED: LIDOCAINE HCL/PF 2% SDV 5ML VIAL ONE (13:55)
[2024-11-24] MEDS ORDERED: LIDOCAINE HCL 1%, 10 MG/ML (20ML VIAL) ONE (14:36)
[2024-11-24] MEDS ORDERED: HEPARIN NA (PORCINE) 5,000 UNITS/ML 1ML VIAL ONE (14:37)
[2024-11-24] MEDS ORDERED: CLINDAMYCIN PHOSPHATE 600 MG/4 ML VIAL ONE (14:59)
[2024-11-24] MEDS ORDERED: CLINDAMYCIN PHOSPHATE 300 MG/2 ML VIAL ONE (14:59)
[2024-11-24] MEDS: CLINDAMYCIN PHOSPHATE 600 MG/4 ML VIAL IVPB ONE (15:10)
[2024-11-24] MEDS ORDERED: PROPOFOL 40 ML ONE (15:14)
[2024-11-24] MEDS ORDERED: DEXAMETHASONE SOD PHOSPHATE 4 MG/1 ML VIAL ONE (15:18)
[2024-11-24] MEDS ORDERED: KETOROLAC TROMETHAMINE 30 MG/1 ML VIAL ONE (15:18)
[2024-11-24] MEDS: LIDOCAINE HCL 1%, 10 MG/ML (50 mL VIAL) INF ONE ×3 (15:18)
[2024-11-24] MEDS ORDERED: ONDANSETRON 4 MG/2 ML VIAL ONE (15:18)
[2024-11-24] MEDS ORDERED: ONDANSETRON 4 MG/2 ML VIAL IVPUSH PRN (15:52)
[2024-11-24] MEDS ORDERED: PROMETHAZINE HCL 25 MG/1 ML VIAL IVPB PRN (15:52)
[2024-11-24] MEDS ORDERED: LACTATED RINGERS SOLUTION 1,000 ML IV SCH (16:00)
[2024-11-24] MEDS: ACETAMINOPHEN 1000 MG/100 ML BAG IVPB ONE (16:35)
[2024-11-24 19:16] VITALS: RESP 20
[2024-11-24 19:19] VITALS: BP 95/62; PULSE 70; TEMP 98.1
== END 2024-11-24 19:07 | disposition home or self-care (01) ==
LOC: JASU-SURG 06:10
PROVIDERS: ATTEND Surgery
PROC: 02HV33Z Insertion of Infusion Device into Superior Vena Cava, Percutaneous Approach (ICD-10-PCS; 2024-11-24)
PROC: B548ZZA Ultrasonography of Superior Vena Cava, Guidance (ICD-10-PCS; 2024-11-24)
PROC: 0JH60WZ Insertion of Totally Implantable Vascular Access Device into Chest Subcutaneous Tissue and Fascia, Open Approach (ICD-10-PCS; principal; 2024-11-24 13:30)
DX: F32.A Depression, unspecified (principal)
CPT/HCPCS: 36571; C1788; 71045-TC-FY; 76000-TC-FY; 81025; 94760; J1644

== ENCOUNTER 2025-01-03 07:38 | Day surgery (SDC) | payer OTHER ==
[2024-12-28 07:45] VITALS: BMI 34.1
[2025-01-03] MEDS ORDERED: ONDANSETRON 4 MG/2 ML VIAL IVPUSH PRN (08:22)
[2025-01-03] MEDS ORDERED: LACTATED RINGERS SOLUTION 1,000 ML IV SCH (08:30)
[2025-01-03] MEDS ORDERED: PROPOFOL 20 ML ONE (08:45)
[2025-01-03] MEDS ORDERED: ONDANSETRON 4 MG/2 ML VIAL ONE (08:45)
[2025-01-03] MEDS ORDERED: SUCCINYLCHOLINE CHLORIDE 200 MG/10 ML SYRINGE ONE (08:46)
[2025-01-03] MEDS ORDERED: KETAMINE HCL 100 MG/ML - 5ML VIAL ONE (08:54)
[2025-01-03 10:25] VITALS: RESP 18; TEMP 97.4
[2025-01-03 10:28] VITALS: BP 111/69; PULSE 89
== END 2025-01-03 10:35 | disposition home or self-care (01) ==
LOC: FECT 07:38
PROVIDERS: ATTEND Student in an Organized Health Care Education/Training Program
PROC: GZB4ZZZ Other Electroconvulsive Therapy (ICD-10-PCS; principal; 2025-01-03 09:17)
DX: F33.2 Major depressive disorder, recurrent severe without psychotic features (principal)
CPT/HCPCS: 81025; 90870; 94760